=== PATIENT | female | born 1975 | race Caucasian/White ===

== ENCOUNTER 2020-06-23 08:36 | Outpatient (CLI) | payer OTHER, SELFPAY ==
--- NOTE | ~2020-06-23 | US_ITS ---
US abdomen complete EXAMINATION: US Abdomen Complete INDICATION: Abdomen pain PROCEDURE: Realtime High Resolution abdomen ultrasound. COMPARISON: No prior studies for comparison FINDINGS: Gallbladder within normal limits. No gallstones, pericholecystic fluid, gallbladder wall t hickening or biliary dilatation. Common bile duct measures 3 mm. Liver echotexture within normal limits without focal mass. Pancreas within normal limits. Pancreati c tail is obscured by bowel gas. Spleen is unremarkeable. Renal echotexture is within normal limits bilaterally without hydronephrosis, contour deforming mass or renal stone. Right kidney measures 9.3 cm. Left kidney measures 9.6 cm. Visualized aspects of the aorta and IVC are within normal limits. Portal vein is patent. No sonograph ic Lake's sign indicated by the technologist. IMPRESSION: 1: Normal abdominal ultrasound. Reviewed, dictated and finalized at location A. INE I CUTTER
--- NOTE | ~2020-06-23 | US_ITS ---
EXAMINATION:US venous doppler LE RT INDICATION:Leg pain TECHNIQUE: Multiple grayscale, color flow and Doppler images of the right lower extremity deep venous systems were obtained and reviewed. COMPARISON:No prior studies for comparison. FINDINGS: The common femoral, superficial femoral and popliteal veins demonstrate normal respiratory variation, augmentation and compressibility. Color flow is also seen within the posterior tibial, pe roneal, greater saphenous and profunda veins. IMPRESSION: 1: No lower extremity deep venous thrombosis. Reviewed, dictated and finalized at location A. ESSOR OF COMMUNICATION AND WRITING
== END 2020-06-23 08:37 | disposition home or self-care (01) ==
PROVIDERS: PCP Nurse Practitioner Family; Visit Provider Nurse Practitioner Family
DX: R10.9 Unspecified abdominal pain (principal); M79.604 Pain in right leg
CPT/HCPCS: 76700; 93971

== ENCOUNTER 2021-03-18 16:30 | Emergency (ER) | payer OTHER, SELFPAY ==
--- NOTE | ~2021-03-18 | XR_ITS ---
EXAMINATION: XR elbow LT min 3V DATE: 03/18/2021 16:54 INDICATION: Left elbow pain TECHNIQUE: Anteroposterior, two oblique and lateral views of the left elbow were obtained. COMPARISON: None. FINDINGS: Alignment is normal. No fracture or joint effusion. Joint spaces are normal. Soft tissues a re unremarkable. IMPRESSION: 1. No acute osseous abnormality. Reviewed, dictated and finalized at location A.
[2021-03-18 16:36] VITALS: BP 127/76; PULSE 71; RESP 16; TEMP 37.5; O2SAT 98
[2021-03-18 16:52] VITALS: BP 127/76; PULSE 71; RESP 16; TEMP 37.5; O2SAT 98
--- NOTE | 2021-03-18 17:04 | ED.UPPEXIN ---
HPI - Extremity Injury (Upper) General Chief Complaint: Extremity Injury, Upper Stated Complaint: left elbow injury Source: patient Mode of arrival: ambulatory Limitations: no limitations History of Present Illness HPI narrative: Patient is a 45-year-old female who presents complaining of left elbow pain. Patient reports slipping and falling down steps approximately 1 week ago hitting elbow on wood step. She denies other injuries. Patient reports continued tenderness with range of motion. She reports taking [id number] medications with moderate relief. She denies of complaints at this time. Patient has no significant medical history. MD complaint: injury to: left and elbow Related Data Home Medications Medication Instructions Recorded Confirmed folic acid 1 mg tablet 1 mg PO DAILY 06/03/20 03/18/21 pantoprazole 40 mg tablet,delayed 40 mg PO QAM 06/03/20 03/18/21 release sertraline 100 mg tablet 150 mg PO DAILY 06/03/20 03/18/21 Allergies Allergy/AdvReac Type Severity Reaction Status Date / Time lamotrigine [From Lamictal] Allergy Swelling Verified 03/18/21 16:50 of Lip/Tongue/Throat Review of Systems Review of Systems: CONSTITUTIONAL: Denies fever, chills, or sweats. EYES: Denies visual changes, redness, or discharge. ENT: Denies rhinorrhea, congestion, sore throat, or otalgia. CARDIOVASCULAR: Denies chest pain, palpitations, or edema. RESPIRATORY: Denies cough or dyspnea. GASTROINTESTINAL: Denies abdominal pain, nausea, vomiting, or diarrhea. GENITOURINARY: Denies dysuria or hematuria. SKIN: Denies rash or itching. MUSCULOSKELETAL: Reports left elbow pain NEUROLOGIC: Denies headache, numbness, dizziness, or weakness. PSYCHIATRIC: Denies anxiety or depression. [facility] Social History Social History (Updated 06/03/20 @ 08:21 by Lacey Richardson MA) Smoking status: Never smoker Alcohol intake: never Substance use: never Comments At the time of signature, I have reviewed and agree with nursing past medical, surgical, social, and family history unless otherwise noted. Please see nursing chart for further information. There is no relevant family history pertinent to the presenting complaint. Exam Narrative: GENERAL: Well-appearing, well-nourished, and in no acute distress. HEAD: Normocephalic, atraumatic. EYES: EOMI. No redness or drainage. Conjunctiva are normal. ENT: Mucous membranes pink and moist. CHEST: No respiratory distress. HEART: Regular rate and rhythm. EXTREMITIES: Ecchymosis and edema to left elbow, tenderness with palpation. Full range of motion, distal sensation intact and good capillary refill. SKIN: Warm, dry, no rash. NEURO: No focal deficits. Alert and oriented x3. Gait steady. PSYCH: Normal affect. No signs of depression or anxiety. Course Vital Signs Vital signs: Vital Signs Temperature 37.5 C 03/18/21 16:36 Pulse Rate 71 03/18/21 16:36 Respiratory Rate 16 03/18/21 16:36 Blood Pressure 127/76 03/18/21 16:36 Pulse Oximetry 98 03/18/21 16:36 Temperature 37.5 C 03/18/21 16:52 Pulse Rate 71 03/18/21 16:52 Respiratory Rate 16 03/18/21 16:52 Blood Pressure 127/76 03/18/21 16:52 Pulse Oximetry 98 03/18/21 16:52 Reviewed MDM - Extremity Injury (Upper) MDM Narrative Medical decision making narrative: X-ray shows no fracture, dislocation or abnormality of the left elbow. Discussed with patient most likely musculoskeletal pain. Kishor wrap applied. Patient instructed on use of NSAIDs. Patient to follow-up with orthopedics in 1 week if pain persist. Patient agrees with plan of care and is stable for discharge home with outpatient follow-up as discussed. Critical Care Time Critical Care Time Critical Care Time: No Discharge Plan Discharge Clinical Impression: Elbow pain Qualifiers: Laterality: left Qualified Code(s): M25.522 - Pain in left elbow Patient Disposition: Home, Self-Care Condition: Stable Instructions:
== END 2021-03-18 17:18 | disposition home or self-care (01) ==
PROVIDERS: Emergency Provider Nurse Practitioner; PCP Nurse Practitioner Family
DX: M25.522 Pain in left elbow (principal); K21.9 Gastro-esophageal reflux disease without esophagitis; Z86.16 Personal history of COVID-19
CPT/HCPCS: 73080; 99213; G0463

== ENCOUNTER 2021-09-16 09:46 | Observation (INO) | payer OTHER, BC, SELFPAY ==
[2021-09-16] VITALS (23 sets, daily range): BP systolic 107–128; BP diastolic 61–78; PULSE 62–96; TEMP 37; O2SAT 97–100
--- NOTE | 2021-09-16 10:02 | OBADM ---
This patient, Bernie Correa, admitted to the OB room OB Post 115 for observation. Patient/family oriented to hospital policies and general routines including ID bracelet, bed and alarms, visiting hours, pain management, procedures, bathroom and other care routines, personal items, smoking policy, room service/diet, and visiting hours. Patient/Family are encouraged to report perceived risks to care and to ask questions if they do not understand what they are told or what they should do.
[2021-09-16] MEDS: TERBUTALINE SULFATE 1 MG/ML VIAL 0.25 MG SUB-Q (10:39)
--- NOTE | 2021-09-16 10:46 | PM.OBTRLD ---
OB - Triage/Final Diagnosis Visit Information Date of evaluation: 09/16/21 Reason for evaluation: threatened labor Comments/Additional reasons for admission: I have assessed the risk for this patient, Bernie Correa, and determined that she would benefit from observation care. Evaluation Vital signs: Vital Signs - 24 hr 09/16/21 10:00 09/16/21 10:15 09/16/21 10:39 Pulse Rate 88 71 Blood Pressure 128/78 114/63 Pulse Oximetry 99 09/16/21 10:44 Pulse Rate Blood Pressure Pulse Oximetry 98
[2021-09-16] MEDS: LACTATED RINGERS 1,000 ML 999 ML IV CONT (11:06)
[2021-09-16] MEDS: BETAMETHASONE SOD PHOS/ACETATE 30 MG/5 ML VIAL 12 MG IM (11:07)
[2021-09-16 11:28] LABS: Fetal Fibronectin Negative
== END 2021-09-16 12:56 | disposition home or self-care (01) ==
PROVIDERS: Admitting Provider Obstetrics & Gynecology; PCP Nurse Practitioner Family; Visit Provider Obstetrics & Gynecology
DX: O47.02 False labor before 37 completed weeks of gestation, second trimester (principal); Z3A.27 27 weeks gestation of pregnancy
CPT/HCPCS: 82731; 96360; 96372; G0378; G0379; J0702; J3105; J7120

== ENCOUNTER 2021-09-17 11:26 | Outpatient (CLI) | payer OTHER, BC, SELFPAY ==
[2021-09-17] MEDS: BETAMETHASONE SOD PHOS/ACETATE 30 MG/5 ML VIAL 12 MG IM (11:50)
== END 2021-09-17 11:27 | disposition home or self-care (01) ==
PROVIDERS: PCP Nurse Practitioner Family; Visit Provider Obstetrics & Gynecology
DX: Z34.90 Encounter for supervision of normal pregnancy, unspecified, unspecified trimester (principal); Z3A.00 Weeks of gestation of pregnancy not specified
CPT/HCPCS: 96372; J0702

== ENCOUNTER 2021-10-10 09:54 | Observation (INO) | payer OTHER, BC, SELFPAY ==
[2021-10-10] VITALS (63 sets, daily range): BP systolic 111–129; BP diastolic 63–71; PULSE 51–112; TEMP 36.5–37.1; O2SAT 92–100; BMI 33.0
--- NOTE | ~2021-10-10 | US_ITS ---
US OB limited DATE: 10/10/2021 14:03 INDICATION: Cervical length measurement TECHNIQUE: Real-time imaging and Doppler analysis COMPARISON: None FINDINGS: The cervical length is 4.4 cm. No funneling is demonstrated. Live abebe intrauterine gestation, fetus in longitudinal lie, breech presentation with hear t rate of 130 bpm. Posterior placenta. Subjectively normal amount of amniotic fluid. IMPRESSION: Cervical length is 4.4 cm; no funneling Breech presentation Reviewed, dictated and finalized at Location A. Reviewed, dictated and finalized at location A.
--- NOTE | 2021-10-10 10:10 | OBADM ---
This patient, Bernie Correa, admitted to the OB room 116 for observation for contractions. Patient/family oriented to hospital policies and general routines including ID bracelet, bed and alarms, visiting hours, pain management, procedures, bathroom and other care routines, personal items, smoking policy, room service/diet, and visiting hours. Patient/Family are encouraged to report perceived risks to care and to ask questions if they do not understand what they are told or what they should do.
[2021-10-10] MEDS: TERBUTALINE SULFATE 1 MG/ML VIAL 0.25 MG SUB-Q ×2 (10:41→12:59)
[2021-10-10 11:03] LABS: Add Urine Microscopic? NO; Appearance Urine Clear (Clear); Bilirubin Urine Negative (Negative); Blood Urine Negative (Negative); Color Urine Yellow (Yellow); Glucose Urine UA Negative (Negative); Ketones Urine Negative (Negative); Leukocyte Esterase Ur Negative LEU/UL (Negative); Nitrate Urine Negative (Negative); Protein Urine Negative (Negative); Specific Grav Ur 1.011 (1.001-1.035); Urobilinogen Urine Negative mg/dL (<2.0)
[2021-10-10 12:42] LABS: Fetal Fibronectin Negative
--- NOTE | 2021-10-13 07:47 | PM.OBTRLD ---
OB - Triage/Final Diagnosis Visit Information Reason for evaluation: threatened labor Comments/Additional reasons for admission: I have assessed the risk for this patient, Bernie Correa, and determined that she would benefit from observation care. Evaluation Laboratory results: Laboratory Tests 10/10/21 10/10/21 10:52 10:52 Urine Color Yellow Urine Appearance Clear Urine pH 9.0 Ur Specific Avery 1.011 Urine Protein Negative Urine Glucose (UA) Negative Urine Ketones Negative Ur Blood (Man) Negative Urine Nitrate Negative Urine Bilirubin Negative Urine Urobilinogen Negative Leukocyte Esterase Rfl Negative Fibronectin Negative
== END 2021-10-10 14:45 | disposition home or self-care (01) ==
PROVIDERS: Admitting Provider Obstetrics & Gynecology; PCP Nurse Practitioner Family; Visit Provider Obstetrics & Gynecology
DX: O47.9 False labor, unspecified (principal)
CPT/HCPCS: 76815; 81003; 82731; 96372; G0378; G0379; J3105

== ENCOUNTER 2021-11-08 21:59 | Inpatient (IN) | payer BC, SELFPAY ==
--- NOTE | ~2021-11-08 | US_ITS ---
US OB limited 11/09/2021 08:15 Indication: Evaluate position Procedure: High-resolution Limited obstetrical ultrasound using transabdominal technique Comparison: Ultrasound dated 10/10/2021 Findings: There is a single living intrauterine in transverse right presentation. hea rt rate 125 BPM. Placenta is posterior. Amniotic fluid is subjectively normal. Impression: 1: Single living intrauterine in transverse right presentation. Reviewed, dictated and finalized at location A. Impression: 1: Single living intrauterine in transverse right presentation.
--- NOTE | 2021-11-08 22:10 | OBADM ---
This patient, Bernie Correa, admitted to the OB room OB Post 116 for observation. Patient/family oriented to hospital policies and general routines including ID bracelet, bed and alarms, visiting hours, pain management, procedures, bathroom and other care routines, personal items, smoking policy, room service/diet, and visiting hours. Patient/Family are encouraged to report perceived risks to care and to ask questions if they do not understand what they are told or what they should do.
[2021-11-08 22:22] VITALS: BP 121/77; PULSE 77
--- NOTE | 2021-11-08 22:28 | PC.NURSE ---
Dr Breaux notified of contractions, sve and no vtx presentation. Orders received.
[2021-11-08 22:31] VITALS: BP 114/76; PULSE 81
[2021-11-08] MEDS: TERBUTALINE SULFATE 1 MG/ML VIAL 0.25 MG SUB-Q ×2 (22:41→23:37)
[2021-11-08 22:46] VITALS: BP 116/66; PULSE 79
[2021-11-08 23:01] VITALS: BP 126/68; PULSE 92
[2021-11-09] VITALS (48 sets, daily range): BP systolic 110–136; BP diastolic 63–94; PULSE 59–90; RESP 12–18; TEMP 36.2–37.1; O2SAT 99–100; BMI 34.3
[2021-11-09] MEDS: TERBUTALINE SULFATE 1 MG/ML VIAL 0.25 MG SUB-Q (00:46)
[2021-11-09] MEDS: ACETAMINOPHEN 500 MG TABLET 1000 MG PO ×2 (01:04→06:41)
[2021-11-09] MEDS: LACTATED RINGERS 1,000 ML 999 ML IV CONT (01:05)
[2021-11-09] MEDS: LACTATED RINGERS 1,000 ML 125 ML IV CONT (02:35)
[2021-11-09] MEDS: NIFEdipine 10 MG CAPSULE PO (03:55)
[2021-11-09] MEDS: MAGNESIUM SULF 4 GM/WATER100ML 4 GM/100 ML BAG IVPB (05:13)
[2021-11-09] MEDS: MAGNESIUM SULF 20GM/WATER500ML 500 ML 50 MG IV CONT (05:49)
--- NOTE | 2021-11-09 07:25 | PM.IMHP ---
H&P: HPI History of Present Illness Date/Time: 11/09/21 07:25 Chief Complaint: contractions and Review of Systems Review of Systems: negative [facility] Past Medical History Medical History (Updated 11/09/21 @ 07:29 by Reece Beasley MD) Left elbow pain Social History Social History Smoking status: Never smoker Alcohol intake: never Substance use: never Meds Home Medications and Allergies Home Medications Medication Instructions Recorded Confirmed Type folic acid 1 mg tablet 1 mg PO DAILY 06/03/20 10/10/21 History pantoprazole 40 mg tablet,delayed 40 mg PO QAM 06/03/20 10/10/21 History release (Protonix) sertraline 100 mg tablet (Zoloft) 150 mg PO DAILY 06/03/20 10/10/21 History calcium-magnesium 750 mg-465 mg 1 tablet PO DAILY 10/10/21 10/10/21 History tablet nifedipine 10 mg capsule 10 mg PO Q4-6H PRN Contractions 10/10/21 10/10/21 History vit 87-iron carb,asp 18 1 cap PO DAILY 10/10/21 10/10/21 History mg-folic acid 1 mg-dha 350 mg capsule (Prenate Mini (ferrous asparto glycinate)) Allergies Allergy/AdvReac Type Severity Reaction Status Date / Time lamotrigine [From Lamictal] Allergy Swelling Verified 04/18/21 14:11 of Lip/Tongue/Throat Vital Signs Vital Signs - 24 hr 11/08/21 22:22 11/08/21 22:31 11/08/21 22:46 Temperature Pulse Rate 77 81 79 Blood Pressure 121/77 114/76 116/66 Oxygen Delivery 11/08/21 23:01 11/09/21 02:09 11/09/21 05:16 Temperature Pulse Rate 92 87 66 Blood Pressure 126/68 136/63 115/71 Oxygen Delivery 11/09/21 05:31 11/09/21 06:01 11/09/21 06:31 Temperature Pulse Rate 72 72 72 Blood Pressure 110/68 121/71 113/66 Oxygen Delivery 11/09/21 07:01 11/08/21 22:10 11/09/21 05:13 Temperature 98.3 F Pulse Rate 71 Blood Pressure 113/66 Oxygen Delivery Room Air Exam Narrative: GENERAL: Well-appearing, well-nourished, and in no acute distress. HEAD: Normocephalic, atraumatic. EYES: EOMI. No redness or drainage. Conjunctiva are normal. ENT: Mucous membranes pink and moist. CHEST: No respiratory distress. HEART: Regular rate and rhythm. EXTREMITIES: Ecchymosis and edema to left elbow, tenderness with palpation. Full range of motion, distal sensation intact and good capillary refill. SKIN: Warm, dry, no rash. NEURO: No focal deficits. Alert and oriented x3. Gait steady. PSYCH: Normal affect. No signs of depression or anxiety. Assessment and Plan Assessment and plan (1) contractions: Code(s): O47.00 - False labor before 37 completed weeks of gestation, unspecified trimester Status: Acute Plan impression: 34 and 6 7th weeks with labor Plan: The patient is on magnesium. She is the are ready received steroid 2 weeks ago. The baby is presently transverse or at least abnormal lie and will undergo ultrasound this morning. Additional Plan None
--- NOTE | 2021-11-09 08:46 | PC.NURSE ---
0739--US at bedside. Transverse lie noted.
--- NOTE | 2021-11-09 08:47 | PC.NURSE ---
0829--Dr. Humberto Beasley notified of increase in contractions. Orders given to increase Magnesium to 2.5mg/hr. Plan of care discussed.
--- NOTE | 2021-11-09 14:42 | WPDANESEPPF ---
Anes - Initial Pre Proc Eval Procedure: Operation Date: 11/09/21 14:45 Proposed Procedures p Section - Reece Beasley MD Date/Time: 11/09/21 14:42 Surgeon: Reece Beasley MD Pre Op Diagnosis: Contractions Patient Data Age: 46 Gender: F Height: 1.6 m Weight: 88 kg Last Vital Signs Temp 97.2 F L 11/09/21 10:00 Pulse 90 11/09/21 14:02 Resp 14 11/09/21 10:00 BP 127/70 11/09/21 14:02 O2 Del Method Room Air 11/08/21 22:10 Allergies Allergy/AdvReac Type Severity Reaction Status Date / Time lamotrigine [From Lamictal] Allergy Swelling Verified 04/18/21 14:11 of Lip/Tongue/Throat Home Medications Medication Instructions Recorded Confirmed Type folic acid 1 mg tablet 1 mg PO DAILY 06/03/20 11/09/21 History pantoprazole 40 mg tablet,delayed 40 mg PO QAM 06/03/20 11/09/21 History release (Protonix) sertraline 100 mg tablet (Zoloft) 150 mg PO DAILY 06/03/20 11/09/21 History calcium-magnesium 750 mg-465 mg 1 tablet PO DAILY 10/10/21 11/09/21 History tablet nifedipine 10 mg capsule 10 mg PO Q4-6H PRN Contractions 10/10/21 10/10/21 History vit 87-iron carb,asp 18 1 cap PO DAILY 10/10/21 11/09/21 History mg-folic acid 1 mg-dha 350 mg capsule (Prenate Mini (ferrous asparto glycinate)) Patient hx anesthesia problems: none Family hx anesthesia problems: none Results Review: All pre-operative results and documents have been reviewed as part of the pre-operative evaluation. [facility] Past Medical History Medical History (Updated 11/09/21 @ 07:29 by Reece Beasley MD) Left elbow pain Social History Social History Smoking status: Never smoker Alcohol intake: never Substance use: never Anes - Eval Final PreProcedure Day of Procedure 11/09/21 14:42 Patient weight: obese Heart: regular rate and rhythm Lungs: clear to auscultation Airway: Mallampati scale class II Neurological: alert and oriented Last oral intake: 2 hours ASA classification: II Emergent: yes (urgent) Anesthetic plan: proceed Anesthesia type and monitoring: general ETT (RSI vs regional anesthesia) and standard monitoring Results Review: All pre-operative results and documents have been reviewed as part of the pre-operative evaluation. Informed Consent: The patient's anesthetic plan and its attendant risks and benefits were discussed with the patient/family/POA. Questions were solicited and answers provided to the satisfaction of the patient/family/POA.
[2021-11-09 14:44] LABS: Basophils Absolute Auto 0.1 K/mm3 (0.0-0.1); Basophils Percent Auto 0.4 % (0.2-1.2); Eosinophils Absolute Auto 0.1 K/mm3 (0-0.3); Eosinophils Percent Auto 0.6 % (0-4.4); Hematocrit 36.9 % (37.0-47.0); Hemoglobin 12.2 g/dL (12.0-15.0); Immature Granulocyte Absolute 0.12 K/mm3 (0.00-0.031); Immature Granulocyte Percent A 0.9 % (0-0.5); Lymphocytes Absolute Auto 1.12 K/mm3 (0.9-3.2); Lymphocytes Percent Auto 8.6 % (18.3-44.2); Mean Corpuscular HGB Conc 33.1 g/dl (32-36); Mean Corpuscular Hemoglobin 29.2 pg (26-34); Mean Corpuscular Volume 88.3 fl (80-100); Mean Platelet Volume 11.9 fl (7.4-10.4); Monocytes Absolute Auto 0.9 K/mm3 (0.1-0.6); Monocytes Percent Auto 6.8 % (2.6-8.5); Neutrophils Absolute Auto 10.8 K/mm3 (1.3-6.7); Neutrophils Percent Auto 82.7 % (45.5-73.1); Platelet Count Result 205 k/mm3 (150-375); Red Blood Count 4.18 M/mm3 (4.2-5.4); Red Cell Distribution Width 14.8 % (11.5-14.5); White Blood Count 13.1 K/mm3 (4.5-10.0)
--- NOTE | 2021-11-09 15:07 | WPDHPUPDATE1 ---
History and Physical Update Update Date/Time: 11/09/21 15:07 History and Physical has been reviewed, including an updated exam of the patient. There are NO changes in the patient's condition. Risks, benefits, and alternatives have been discussed and questions answered. Patient agrees to proceed with procedure. The patient is cervix is changed. Baby remains transverse proceed with low transverse section
[2021-11-09] MEDS: KETOROLAC 30 MG/ML VIAL (*BKC) IV PUSH (16:00)
--- NOTE | 2021-11-09 16:01 | P.OP_ITS ---
Procedure Note - Detailed Date of Procedure 11/09/21 Pre-op Diagnosis Contractions / pre term rupture membranes at 35 weeks gestation/abnormal lie Post-op Diagnosis Same Procedure Performed primary low-transverse section Surgeon Reece Beasley MD Anesthesia Spinal Indications this 3 para 2 at 34 and 6 7th weeks gestation with spontaneous rupture membranes and transverse lie Findings viable female infant with transverse lie Description of Procedure the patient was admitted with labor and was eventually placed on magnesium. She broke through the magnesium and spontaneously laps she was offered low-transverse section. After obtaining informed consent the patient was prepped draped normal sterile fashion placed in the supine position. Under excellent spinal anesthetic the abdomen was entered in a Pfannenstiel fashion progressive layers of fascia the shins as midline cure number fresh bilaterally. Underlying muscles were sharply dissected. Parietal peritoneum elevated by clamps and sharp object dissection. This was carried superiorly and inferiorly to bladder. Bladder blade placed and a bladder flap formed bladder blade returned a low transverse incision made in the breech delivered the double footling followed by sweeping the arms medially and the head delivered in the flexed position cord clamped x2 and cut infant passed off the table. Pl acenta delivered intact manually. Uterus delivered on the abdomen wrapped in moist towel. After assuring no membranes or debris remained in the uterus, the uterus was closed with continuous running 0 Vicryl from lateral edge to lateral edge. This was followed by 2nd imbricating running locking Vicryl from lateral lateral edge. Hemostasis was assured. Blood loss was ovaries and tubes appeared within normal limits and the uterine incision inspected 1 last time hemostatic this was returned the abdomen in laps removed and accounted for. The fascia then closed with continuous running 0 Vicryl from lateral edge to midline bilaterally. Irrigation of subcutaneous layer the skin closed with 4-0 Monocryl and. Blood loss by quantitative amount was 645. All sponge, needle, instrument counts were correct. There were no immediate complications Estimated Blood Loss 645 Urine Output 500 Pathology None sent Condition Stable
--- NOTE | 2021-11-09 16:56 | LDADM ---
This patient, Bernie Correa, was admitted to OB Post 116 on 11/09/21 at 14:27. Plans for labor, pain management and were discussed with patient. Patient/family oriented to hospital policies and general routines including ID bracelet, bed and alarms, visiting hours, pain management, procedures, bathroom and other care routines, personal items, smoking policy, room service/diet and guest tray routines, security routines, and visiting hours. Patient/Family are encouraged to report perceived risks to care and to ask questions if they do not understand what they are told or what they should do. See OBIX for further documentation.
[2021-11-09] MEDS: LORATADINE 10 MG TABLET (17:30)
[2021-11-09] MEDS: fentaNYL CITRATE INJ (*CRX) 100 MCG/2 ML VIAL 25 MCG IV PUSH (17:31)
[2021-11-10] VITALS: BP 124/72; PULSE 86; RESP 18; TEMP 36.9; O2SAT 99
[2021-11-10 04:36] VITALS: BP 110/65; PULSE 90; RESP 18; TEMP 36.8; O2SAT 97
[2021-11-10 05:23] LABS: Hematocrit 30.5 % (37.0-47.0); Hemoglobin 10.2 g/dL (12.0-15.0)
--- NOTE | 2021-11-10 07:40 | P.PNOB_ITS ---
OB - PN: Subj Subjective Date/time seen: 11/10/21 07:40 Patient comments: no complaints and pain well controlled baby status: other ( baby transferred out) OB - PN: Obj Data Labs CBC & Chem 7: 11/10/21 04:18 Labs: Laboratory Results - last 24 hr 11/09/21 11/09/21 11/10/21 14:35 14:35 04:18 WBC 13.1 H RBC 4.18 L Hgb 12.2 10.2 L Hct 36.9 L 30.5 L MCV 88.3 MCH 29.2 MCHC 33.1 RDW 14.8 H Plt Count 205 MPV 11.9 H Immature Gran % (Auto) 0.9 H Neut % (Auto) 82.7 H Lymph % (Auto) 8.6 L Tillman % (Auto) 6.8 Eos % (Auto) 0.6 Baso % (Auto) 0.4 Lymph # (Auto) 1.12 Tillman # (Auto) 0.9 H Eos # (Auto) 0.1 Baso # (Auto) 0.1 Abs Immat Gran (auto) 0.12 H Absolute Neuts (auto) 10.8 H Absolute Nucleated RBC 0.0 Nucleated RBC % 0.0 Blood Type O Positive Antibody Screen Negative Imaging Radiologist's impression: Impressions Obstetrics Ultrasound 11/09/21 08:40 Impression: 1: Single living intrauterine in transverse right presentation. OB - PN A/P Plan day: 1 Plan: routine care Time Spent With Patient Time: Total time spent is greater than 50% in coordination of care (as documented) at patient's floor/unit and/or counseling patient: Time with patient: less than 15 minutes Exam GI: Auscultation: normal bowel sounds and other ( wound clean dry and intact)
[2021-11-10 08:00] VITALS: BP 117/54; PULSE 77; RESP 18; TEMP 37.2
[2021-11-10] MEDS: POLYSACCHARIDE IRON COMPLEX 150 MG CAPSULE PO (08:30)
[2021-11-10] MEDS: DOCUSATE SODIUM 100 MG CAPSULE PO (08:30)
[2021-11-10] MEDS: SIMETHICONE 80 MG TAB.CHEW PO ×2 (08:30→14:48)
[2021-11-10] MEDS: MULTIVIT/MIN/PREN/FOL AC/IRON TABLET 1 TAB PO (08:30)
[2021-11-10] MEDS: IBUPROFEN 600 MG TABLET PO ×3 (08:31→20:33)
--- NOTE | 2021-11-10 09:24 | WPDANLDPN2 ---
Anes-Prog Note L&D Date/Time: 11/10/21 09:24 Comfortable throughout: section Neuraxial method: spinal Epidural/Spinal procedure site: clean & non-tender Neuro status: Neuro function grossly intact. Cardiovascular status: normal Respiratory status: normal Airway patency: baseline Mental status: baseline Post-Op hydration status: normal Vital Signs: Last Vital Signs Temp 36.8 C 11/10/21 04:36 Pulse 90 11/10/21 04:36 Resp 18 11/10/21 04:36 BP 110/65 11/10/21 04:36 Pulse Ox 97 11/10/21 04:36 O2 Del Method Room Air 11/10/21 04:36 Pain score (VAS): 06/27 I/O: Intake & Output 11/09/21 11/10/21 11/10/21 23:59 07:59 15:59 Intake Total 2200 Output Total 580 3000 Balance -580 -800 Post-procedural complaints: none Patient feedback: Patient satisfied with anesthetic care.
--- NOTE | 2021-11-10 09:25 | WPDANLDNPN2 ---
Anes-Prog Note L&D-Neuraxial Date/Time: 11/10/21 09:25 Neuraxial medications: intrathecal PF morphine Opiod-related complaints: none Patient feedback: Patient satisfied with post-operative pain management.
[2021-11-10 11:03] LABS: Rapid Plasma Reagin Non-Reactive (NonReactive)
[2021-11-10 13:00] VITALS: BP 112/64; RESP 76; TEMP 36.5; O2SAT 100
[2021-11-10] MEDS: ACETAMINOPHEN 325 MG TABLET 650 MG PO (14:48)
[2021-11-10] MEDS: HYDROcodone/acetaminophen (*CRX) 5-325 MG TABLET 1 TAB PO ×2 (14:49→20:33)
--- NOTE | 2021-11-10 14:51 | PC.NURSE ---
Pt. to [facility] on pass to see infant.
[2021-11-10 19:25] VITALS: BP 116/75; PULSE 82; RESP 18; TEMP 36.6
--- NOTE | 2021-11-10 19:25 | PC.NURSE ---
Returned from being on a pass to [facility] to see baby.
[2021-11-11] MEDS: IBUPROFEN 600 MG TABLET PO ×3 (05:31→19:31)
[2021-11-11] MEDS: HYDROcodone/acetaminophen (*CRX) 5-325 MG TABLET 1 TAB PO ×2 (05:32→13:21)
[2021-11-11] MEDS: TETANUS,DIPHTHERIA,AC PERTUSSIS ADULT (0.5 ML) BOOSTRIX IM (05:33)
[2021-11-11 07:55] VITALS: BP 114/67; PULSE 78; RESP 16; TEMP 36.6; O2SAT 100
[2021-11-11] MEDS: HYDROcodone/acetaminophen (*CRX) 10-325 MG TABLET 1 TAB PO ×3 (08:42→23:29)
[2021-11-11] MEDS: DOCUSATE SODIUM 100 MG CAPSULE PO (08:42)
[2021-11-11] MEDS: MULTIVIT/MIN/PREN/FOL AC/IRON TABLET 1 TAB PO (08:42)
[2021-11-11] MEDS: SIMETHICONE 80 MG TAB.CHEW PO (08:43)
--- NOTE | 2021-11-11 08:48 | PM.OBPNVD ---
OB - PN: Subj Subjective Date/time seen: 11/11/21 08:48 OB - PN: Obj Data Labs CBC & Chem 7: 11/10/21 04:18 Labs: Laboratory Results - last 24 hr 11/09/21 14:35 RPR Non-reactive OB - PN A/P Assessment and Plan (1) abnormal glucose tolerance of mother: Code(s): O99.815 - Abnormal glucose complicating the puerperium Status: Acute Plan Normal check Plan Comments: routine care Time Spent With Patient Time: Total time spent is greater than 50% in coordination of care (as documented) at patient's floor/unit and/or counseling patient: Time with patient: less than 15 minutes
--- NOTE | 2021-11-11 14:29 | PC.NURSE ---
Pt. out on pass to visit baby at [facility] accompanied by mother in law.
[2021-11-11 19:25] VITALS: BP 125/70; PULSE 81; RESP 18; TEMP 36.6
--- NOTE | 2021-11-11 19:25 | PC.NURSE ---
Returned from being on a pass to [facility] to see baby.
[2021-11-12] MEDS: HYDROcodone/acetaminophen (*CRX) 10-325 MG TABLET 1 TAB PO (03:58)
[2021-11-12] MEDS: IBUPROFEN 600 MG TABLET PO ×2 (03:58→11:39)
[2021-11-12 07:40] VITALS: BP 133/75; PULSE 80; RESP 18; TEMP 36.3; O2SAT 99
--- NOTE | 2021-11-12 08:00 | PM.OBDSVD ---
DS: Admitting Diagnosis Discharge Date 11/12/21 Admitting Diagnosis intrauterine PPROM transverse lie OB - DS: Summary OB Procedures : None OB Procedures Intrapartum: OB Procedures: : None Peripartum Data Infant Delivery Method: Section Procedures: Procedures Operation Date: 11/09/21 14:45 Actual Procedure Side Surgeon p Section Bilateral Reece Beasley MD complications: none Status at Discharge Functional status at discharge: independent ambulation Overall status at discharge: patient is progressing back to baseline Time Spent with Patient Time attestation: Total time spent providing and/or coordinating discharge services: Time spent: Less than 30 minutes Exam Const: General: comfortable and no acute distress Resp: Effort & Inspection: normal respiratory effort Auscultation: clear to auscultation bilaterally Cardio: Rate: regular rate GI: Inspection: non-distended GI Palp: Yes Soft to palpation, No Firmness to palpation present (GI), Yes Tenderness to palpation present (GI) (mild tenderness over incision ) and No Guarding due to palpation present (GI) Auscultation: normal bowel sounds Psych: Appearance: grossly normal Mental Status: mental status grossly normal Discharge Plan Discharge Attending physician on discharge: Reece Wright Discharging Clinician: Reece Wright Patient Disposition: Home, Self-Care Activity: may shower, no straining and pelvic rest Diet: heart healthy Wound Care Instructions: follow printed instructions Patient Instructions: Antibiotic Form Stand Alone Forms: General Discharge Information Follow-up/Referrals: Reece Wright MD [Physician] - Discharge Medications: New hydrocodone-acetaminophen 5-325 mg tablet 1 tablet PO Q4H PRN (Reason: pain) Qty: 30 0RF No Action pantoprazole [Protonix] 40 mg tablet,delayed release (DR/EC) 40 mg PO QAM folic acid 1 mg tablet 1 mg PO DAILY sertraline [Zoloft] 100 mg tablet 150 mg PO DAILY Prenate Mini (ferr asp glycin) 18-1-350 mg capsule 1 cap PO DAILY calcium-magnesium 750-465 mg Tablet 1 tablet PO DAILY nifedipine 10 mg Capsule 10 mg PO Q4-6H PRN (Reason: Contractions) Date of admission: 11/09/21 14:27 Primary Care Provider: Mechelle,Lynnette Estrada Admitting Provider: Reece Wright Attending physician on admission: Reece Wright Condition: Stable
[2021-11-12] MEDS: HYDROcodone/acetaminophen (*CRX) 5-325 MG TABLET 1 TAB PO (08:14)
[2021-11-12] MEDS: DOCUSATE SODIUM 100 MG CAPSULE PO (08:14)
[2021-11-12] MEDS: MULTIVIT/MIN/PREN/FOL AC/IRON TABLET 1 TAB PO (08:14)
--- NOTE | 2021-11-12 10:56 | PC.NURSE ---
Patient viewed the discharge video Mother & Baby Care, The First Two Weeks . Patient was given the opportunity and encouraged to ask questions. Patient verbalized understanding of information shared and has been given the mother/baby guide for home reference.
== END 2021-11-12 11:45 | disposition home or self-care (01) | DRG 786 ==
LOC: ANHOBPP 22:04 → ANHOB2 11-12 08:02 → ANHOBPP 11-15 11:48
PROVIDERS: Admitting Provider Obstetrics & Gynecology; PCP Nurse Practitioner Family; Visit Provider Student in an Organized Health Care Education/Training Program
PROC: 10D00Z1 Extraction of Products of Conception, Low, Open Approach (ICD-10-PCS; CPT 59514; principal; 2021-11-09 14:45)
DX: O32.2XX0 Maternal care for transverse and oblique lie, not applicable or unspecified (principal); O60.23X0 Term delivery with preterm labor, third trimester, not applicable or unspecified; Z3A.37 37 weeks gestation of pregnancy; Z37.0 Single live birth
CPT/HCPCS: 36415; 76815; 84112; 85014; 85018; 85025; 86592; 86850; 86900; 86901; 90715; A9270; J0131; J1885; J2274; J2405; J2590; J3010; J3105; J3475; J7120

== ENCOUNTER 2024-10-06 16:18 | Emergency (ER) | payer BC, SELFPAY ==
--- NOTE | ~2024-10-06 | CT_ITS ---
EXAMINATION: CT abdomen pelvis w con DATE: 10/06/2024 18:50 INDICATION: abdominal pain TECHNIQUE: Computed tomography (CT) of the abdomen and pelvis was performed with 100 mL Omnipaque-350 intravenous contrast. Automated exposure control and iterative reconstruction technique were employe d. The dose-length product was 852.65 mGy-cm. COMPARISON: None. FINDINGS: Lower thorax: Unremarkable Liver: Normal. Biliary/Gallbladder: Gallbladder is normal. No bile duct dilation. Pancreas: No mass or duct dilation. Spleen: Normal. Adrenals:No mass. Kidneys: No suspicious mass, obstructing stone, or hydronephrosis. GI tract: Mild distal esophageal and gastric wall edema. No small or large bowel dilation. Surgically absent appendix Mesentery/Peritoneum: No ascites, mass, or free air. Retroperitoneum: No mass. Pelvis: Pelvic organs are within normal limits. Simple appearing 2.8 cm left ovarian cyst. Trace free pelvic fluid, within physiologic range. Soft Tissues: Small atrophic fat-containing of local hernia. Bones: No acute osseous finding. IMPRESSION: Mild esophagitis/gastritis. Reviewed, dictated and finalized at location K. IMPRESSION: Mild esophagitis/gastritis.
[2024-10-06 16:32] VITALS: BP 138/90; PULSE 90; RESP 18; TEMP 36.9; O2SAT 100
--- NOTE | 2024-10-06 16:43 | ECG_ITS ---
Test Date: 2024-10-06 17:46:38 Measurements Intervals [place] Rate: 70 P: 63 [place]: 143 QRS: 22 QRSD: 84 T: 56 QT: 371 QTc: 402 Interpretive Statements SINUS RHYTHM POSSIBLE LEFT ATRIAL ENLARGEMENT BORDERLINE ECG No previous ECG available for comparison Electronically Signed On 10-06-2024 19:28:15 CDT by Bhupinder Alvarez D.O.
--- NOTE | 2024-10-06 16:44 | ED.ABDPAIN ---
HPI - Abdominal Pain General Chief Complaint: Abdominal Pain <Rosita Crespo APRN - Last Filed: 10/06/24 19:36> Stated Complaint: Abd pain, cramping <Rosita Crespo APRN - Last Filed: 10/06/24 19:36> Time Seen by Provider: 10/06/24 16:40 <Rosita Crespo APRN - Last Filed: 10/06/24 19:36> Focused HPI: Patient is 49-year-old female presents to the ER with complaints of abdominal pain in her left upper quadrant that she describes as similar to a contraction. She reports she recently started a new infusion to treat her RA and developed intermittent nausea. Patient endorses significant intermittent left upper quadrant pain since she started taking her infusion also. She also endorses dizziness. Patient reports she tried to call her insurance consultant to see if this could be a side effect of her medication but she was unable to get through. She denies any recent sick contacts, recent fever, or urinary symptoms. GENERAL: Well-appearing, well-nourished, and in no acute distress. HEAD: Normocephalic, atraumatic. CHEST: Clear to auscultation. ?No respiratory distress. HEART: Regular rate and rhythm.? NEURO: ?Alert and oriented x3. Patient screened in triage and initial orders placed.? ?Additional care and disposition to be based upon?diagnostic testing and treatment. <Rosita Crespo APRN - Last Filed: 10/06/24 19:36> History of Present Illness HPI narrative: Agree with the HPI above. Patient also states she has a migraine headache at this time which is worsening her GI symptoms including left upper quadrant pain and nausea. No vomiting. Has tried Protonix and Maalox at home without any relief of symptoms. No recent GI follow-up. <Td Lynn MD - Last Filed: 10/06/24 21:24> Related Data Home Medications: Home Medications ?Medication ?Instructions ?Recorded ?Confirmed ?Last Taken ?Type folic acid 1 mg tablet 1 mg PO DAILY 06/03/20 10/06/24 11/09/21 09:00 History calcium-magnesium 750 mg-465 mg 1 tablet PO DAILY 10/10/21 10/06/24 11/09/21 09:00 History tablet cholecalciferol (vitamin D3) 125 125 mcg PO DAILY 01/31/23 10/06/24 Unknown History mcg (5,000 unit) capsule mecobalamin (vitamin B12) 5,000 5,000 mcg PO DAILY 01/31/23 10/06/24 Unknown History mcg chewable tablet omega-3 fatty acids 1,000 mg 1,000 mg PO DAILY 01/31/23 10/06/24 Unknown History capsule ferrous sulfate 325 mg (65 mg 325 mg PO DAILY 07/05/23 10/06/24 Unknown History iron) tablet (Feosol) azathioprine 50 mg tablet 100 mg PO DAILY 09/25/24 10/06/24 Unknown History duloxetine 30 mg capsule,delayed 30 mg PO DAILY 09/25/24 10/06/24 Unknown History release (Cymbalta) duloxetine 60 mg capsule,delayed mg PO ONCE 09/25/24 10/06/24 Unknown History release golimumab 12.5 mg/mL intravenous IV ONCE 09/25/24 10/06/24 Unknown History solution (Simponi ARIA) hydroxyzine HCl 10 mg tablet 10 mg PO QHS PRN 09/25/24 10/06/24 Unknown History meloxicam 15 mg tablet mg PO 09/25/24 10/06/24 Unknown History methylphenidate HCl 36 mg mg PO ONCE 09/25/24 10/06/24 Unknown History tablet,extended release 24 hr prednisone 5 mg tablet mg PO DAILY PRN 09/25/24 10/06/24 Unknown History tramadol 50 mg tablet mg PO TID PRN 09/25/24 10/06/24 Unknown History <Rosita Crespo APRN - Last Filed: 10/06/24 19:36> Allergies/Adverse Reactions: Allergies Allergy/AdvReac Type Severity Reaction Status Date / Time lamotrigine (From Lamictal) Allergy Swelling Verified 10/06/24 15:30 of Lip/Tongue/Throat methotrexate AdvReac Mild Blister Verified 10/06/24 15:30 <Rosita Crespo APRN - Last Filed: 10/06/24 19:36> Review of Systems Review of Systems: As reviewed above in HPI <Td Lynn MD - Last Filed: 10/06/24 21:24> PMFSH Past Medical History Medical History: Medical History delivery delivered Femur fracture, right ACL (anterior cruciate ligament) rupture Thumb fracture Left elbow pain <Rosita Crespo, MATERIAL STOCKKEEPER YARD - Last Filed: 10/06/24 19:36> Surgical History Surgical History: Surgical History History of appendectomy [place] teeth extracted <Rosita Crespo, MATERIAL STOCKKEEPER YARD - Last Filed: 10/06/24 19:36> Family History Family History: Family History Grandparent Heart disease Diabetes mellitus Cancer Gehrig disease Acute Crohn's disease Other Unknown family medical history <Rosita Crespo, MATERIAL STOCKKEEPER YARD - Last Filed: 10/06/24 19:36> Social History Social History: Social History Smoking status: Never smoker Alcohol intake: current Alcohol use details: occasionally Substance use: never Lack of Transportation: No Lack of Food: Never True Current Housing: I Have Housing Concerned About Future Housing: No Difficulty Paying Gas/Electric Bills: No Difficulty Paying for Meds: No Currently Unemployed: No Spiritual care concerns: No <Rosita Crespo, MATERIAL STOCKKEEPER YARD - Last Filed: 10/06/24 19:36> Exam Narrative: GENERAL: [Well-appearing, well-nourished, and in no acute distress.] HEAD: [Normocephalic, atraumatic.] EYES: [PERRLA and EOMI.] ENT: Nares clear, no rhinorrhea or epistaxis. Mucous membranes moist. NECK: Supple. CHEST: [Clear to auscultation. No respiratory distress.] HEART: [Regular rate and rhythm]. No murmur heard. [Normal peripheral pulses.] ABDOMEN: [Soft, nondistended], [nontender], [No rigidity or guarding] EXTREMITIES: Normal range of motion. [No edema.] SKIN: Warm, dry, no rash. NEURO: [No focal deficits]. Alert and oriented [x3.] PSYCH: [Normal mood and affect.] <Td Lynn MD - Last Filed: 10/06/24 21:24> Course Vital Signs Vital signs: Vital Signs Temperature 36.9 C 10/06/24 16:32 Pulse Rate 90 10/06/24 16:32 Respiratory Rate 18 10/06/24 16:32 Blood Pressure 138/90 10/06/24 16:32 Pulse Oximetry 100 10/06/24 16:32 Oxygen Delivery Room Air 10/06/24 16:32 Temperature 36.9 C 10/06/24 16:32 Pulse Rate 90 10/06/24 16:32 Respiratory Rate 18 10/06/24 16:32 Blood Pressure 138/90 10/06/24 16:32 Pulse Oximetry 100 10/06/24 16:32 Oxygen Delivery Room Air 10/06/24 16:32 <Rosita Crespo APRN - Last Filed: 10/06/24 19:36> Vital Signs Temperature 36.9 C 10/06/24 16:32 Pulse Rate 90 10/06/24 16:32 Respiratory Rate 18 10/06/24 16:32 Blood Pressure 138/90 10/06/24 16:32 Pulse Oximetry 100 10/06/24 16:32 Oxygen Delivery Room Air 10/06/24 16:32 Temperature 36.9 C 10/06/24 16:32 Pulse Rate 90 10/06/24 16:32 Respiratory Rate 18 10/06/24 16:32 Blood Pressure 138/90 10/06/24 16:32 Pulse Oximetry 100 10/06/24 16:32 Oxygen Delivery Room Air 10/06/24 16:32 <Td Lnyn MD - Last Filed: 10/06/24 21:24> MDM - Abdominal Pain MDM Narrative Medical decision making narrative: 49-year-old female with a past medical history including gastroesophageal reflux disease, hiatal hernia, rheumatoid arthritis currently undergoing infusions for last 4 months. Follows up with her insurance consultant. Previously had a hiatal hernia diagnosed on endoscopy with some beginnings of ulcerative disease that she takes chronic Protonix for for last 15 years. Patient presents today with complaints of left upper quadrant fullness sensations and contraction type pain in addition to nausea and migraine headache. Patient states that the lights are bothering her. She has otherwise normal vital signs and unremarkable physical examination. Abdomen is soft nontender nondistended. Considerations presently for migraine headache, gastritis, hiatal hernia, gastroenteritis, less likely intra-abdominal pathology such as pancreatitis, obstruction or diverticulitis. Low suspicion intracranial pathology other than migraine. Laboratory studies were obtained as well as CT scan of the abdomen pelvis with contrast. test was ordered. Patient was given a combination of medications to treat both her migraine and nausea with Compazine, diphenhydramine, dexamethasone, normal saline bolus. She was re-evaluated frequently. Workup shows no leukocytosis or anemia. Normal platelet count. Electrolytes are unremarkable. Normal renal and hepatic function panel. Negative troponin. Negative test. Negative lipase. Urinalysis with no signs of infection. CT scan shows mild esophagitis and gastritis which could explain her left upper quadrant symptoms. No other acute process. EKG obtained shows sinus rhythm, no signs of ischemia. Patient had improvement upon re-evaluation. Patient is safe for discharge home at this time will be given GI follow-up and encouraged to contact her PCP or return if any new or worsening symptoms. <Td Lynn MD - Last Filed: 10/06/24 21:24> Medical Records Attestation: I reviewed the patient's medical records. <Td Lynn MD - Last Filed: 10/06/24 21:24> Lab Data Attestation: I reviewed the patient's lab results. <Td Lynn MD - Last Filed: 10/06/24 21:24> Result diagrams: 10/06/24 17:42 10/06/24 17:42 <Rosita Crespo APRN - Last Filed: 10/06/24 19:36> Labs: Lab Results 10/06/24 Range/Units 17:42 WBC 8.4 (4.5-10.0) K/mm3 RBC 4.63 (4.2-5.4) M/mm3 Hgb 13.7 D (12.0-15.0) g/dL Hct 41.6 (37.0-47.0) % MCV 89.8 (80-100) fl MCH 29.6 (26-34) pg MCHC 32.9 (32-36) g/dl RDW 13.9 (11.5-14.5) % Plt Count 322 D (150-375) k/mm3 MPV 10.1 (7.4-10.4) fl Immature Gran % (Auto) 0.4 (0-0.5) % Neut % (Auto) 76.3 H (45.5-73.1) % Lymph % (Auto) 17.7 L (18.3-44.2) % [place] % (Auto) 5.0 (2.6-8.5) % Eos % (Auto) 0.2 (0-4.4) % Baso % (Auto) 0.4 (0.2-1.2) % Lymph # (Auto) 1.49 (0.9-3.2) K/mm3 [place] # (Auto) 0.4 (0.1-0.6) K/mm3 Eos # (Auto) 0.0 (0-0.3) K/mm3 Baso # (Auto) 0.0 (0.0-0.1) K/mm3 Abs Immat Gran (auto) 0.03 (0.00-0.031) K/mm3 Absolute Neuts (auto) 6.4 (1.3-6.7) K/mm3 Absolute Nucleated RBC 0.000 (0.0-0.012) K/mm3 Nucleated RBC % 0.0 (0.0-0.2) % Sodium 138 (137-145) mmol/L Potassium 4.3 (3.4-5.0) mmol/L Chloride 101 (98-107) mmol/L Carbon Dioxide 27 (22-30) mmol/L Anion Gap 10 (4-12) mmol/L BUN 11 (7-17) mg/dL Creatinine 0.71 (0.7-1.0) mg/dL Estim Creat Clear Calc 83 ml/min Estimated GFR > 60 (59 - ) Glucose 98 (65-110) mg/dL Calcium 9.6 (8.4-10.2) mg/dL Total Bilirubin 0.6 (0.2-1.3) mg/dL AST 22 (14-36) U/L ALT 25 (6-35) U/L Alkaline Phosphatase 70 (38-126) U/L Troponin I < 0.012 (0.000-0.034) ng/mL Total Protein 7.0 (6.3-8.2) g/dL Albumin 4.6 (3.5-5.1) g/dL Lipase 39 (23-300) U/L Beta HCG, Quant < 2.39 mIU/ML Urine Color Yellow (Yellow) Urine Appearance Clear (Clear) Urine pH 8.0 (5.0-9.0) Ur Specific [place] 1.007 (1.001-1.035) Urine Protein Negative (Negative) mg/dL Urine Glucose (UA) Negative (Negative) mg/dL Urine Ketones Negative (Negative) mg/dL Ur Blood (Man) Negative (Negative) Urine Nitrate Negative (Negative) Urine Bilirubin Negative (Negative) Urine Urobilinogen 0.2 (<2.0) mg/dL Leukocyte Esterase Rfl Negative (Negative) INA/UL <Rosita Crespo, MATERIAL STOCKKEEPER YARD - Last Filed: 10/06/24 19:36> Lab Results 10/06/24 Range/Units 17:42 WBC 8.4 (4.5-10.0) K/mm3 RBC 4.63 (4.2-5.4) M/mm3 Hgb 13.7 D (12.0-15.0) g/dL Hct 41.6 (37.0-47.0) % MCV 89.8 (80-100) fl MCH 29.6 (26-34) pg MCHC 32.9 (32-36) g/dl RDW 13.9 (11.5-14.5) % Plt Count 322 D (150-375) k/mm3 MPV 10.1 (7.4-10.4) fl Immature Gran % (Auto) 0.4 (0-0.5) % Neut % (Auto) 76.3 H (45.5-73.1) % Lymph % (Auto) 17.7 L (18.3-44.2) % [place] % (Auto) 5.0 (2.6-8.5) % Eos % (Auto) 0.2 (0-4.4) % Baso % (Auto) 0.4 (0.2-1.2) % Lymph # (Auto) 1.49 (0.9-3.2) K/mm3 [place] # (Auto) 0.4 (0.1-0.6) K/mm3 Eos # (Auto) 0.0 (0-0.3) K/mm3 Baso # (Auto) 0.0 (0.0-0.1) K/mm3 Abs Immat Gran (auto) 0.03 (0.00-0.031) K/mm3 Absolute Neuts (auto) 6.4 (1.3-6.7) K/mm3 Absolute Nucleated RBC 0.000 (0.0-0.012) K/mm3 Nucleated RBC % 0.0 (0.0-0.2) % Sodium 138 (137-145) mmol/L Potassium 4.3 (3.4-5.0) mmol/L Chloride 101 (98-107) mmol/L Carbon Dioxide 27 (22-30) mmol/L Anion Gap 10 (4-12) mmol/L BUN 11 (7-17) mg/dL Creatinine 0.71 (0.7-1.0) mg/dL Estim Creat Clear Calc 83 ml/min Estimated GFR > 60 (59 - ) Glucose 98 (65-110) mg/dL Calcium 9.6 (8.4-10.2) mg/dL Total Bilirubin 0.6 (0.2-1.3) mg/dL AST 22 (14-36) U/L ALT 25 (6-35) U/L Alkaline Phosphatase 70 (38-126) U/L Troponin I < 0.012 (0.000-0.034) ng/mL Total Protein 7.0 (6.3-8.2) g/dL Albumin 4.6 (3.5-5.1) g/dL Lipase 39 (23-300) U/L Beta HCG, Quant < 2.39 mIU/ML Urine Color Yellow (Yellow) Urine Appearance Clear (Clear) Urine pH 8.0 (5.0-9.0) Ur Specific [place] 1.007 (1.001-1.035) Urine Protein Negative (Negative) mg/dL Urine Glucose (UA) Negative (Negative) mg/dL Urine Ketones Negative (Negative) mg/dL Ur Blood (Man) Negative (Negative) Urine Nitrate Negative (Negative) Urine Bilirubin Negative (Negative) Urine Urobilinogen 0.2 (<2.0) mg/dL Leukocyte Esterase Rfl Negative (Negative) INA/UL <Td Lynn MD - Last Filed: 10/06/24 21:24> Imaging Data Attestation: I personally reviewed and interpreted this imaging study as follows: <Td Lynn MD - Last Filed: 10/06/24 21:24> My impression: Impressions Abdomen/Pelvis CT 10/06/24 19:00 IMPRESSION: Mild esophagitis/gastritis. <Td Lynn MD - Last Filed: 10/06/24 21:24> Radiologist's impression: ITS Impressions Abdomen/Pelvis CT 10/06/24 19:00 IMPRESSION: Mild esophagitis/gastritis. <Rosita Crespo APRN - Last Filed: 10/06/24 19:36> ITS Impressions Abdomen/Pelvis CT 10/06/24 19:00 IMPRESSION: Mild esophagitis/gastritis. <Td Lynn MD - Last Filed: 10/06/24 21:24> Discharge Plan Discharge Clinical Impression: Migraine, Abdominal pain, Gastritis <Rosita Crespo APRN - Last Filed: 10/06/24 19:36> Patient Disposition: Home <Rosita Crespo APRN - Last Filed: 10/06/24 19:36> Condition: Stable <Rosita Crespo APRN - Last Filed: 10/06/24 19:36> Instructions: Antibiotic Form, Abdominal Pain (ED) <Rosita Crespo APRN - Last Filed: 10/06/24 19:36> Additional Instructions: Your CT scan shows some gastritis but no other acute intra-abdominal process. Your laboratory studies are all within normal limits which is reassuring. Your symptoms could be a combination of things either related to your hiatal hernia, peptic ulcerations, related to your migraines or even your rheumatoid arthritis. We will send you home with some medications to try for symptom control if this were to recur. We have provided you a GI doctor to contact for close outpatient follow-up appointment. Return with any new or worsening concerns at any time. Follow up with regular doctors. <Rosita Crespo APRN - Last Filed: 10/06/24 19:36> Patient Language: Indonesian <Rosita Crespo APRN - Last Filed: 10/06/24 19:36> Prescriptions: New prochlorperazine maleate [Compazine] 10 mg tablet 10 mg PO Q8H PRN (Reason: nausea and vomiting) Qty: 14 0RF dicyclomine 20 mg tablet 20 mg PO TID PRN (Reason: abdominal pain) Qty: 14 0RF No Action folic acid 1 mg tablet 1 mg PO DAILY cholecalciferol (vitamin D3) 125 mcg (5,000 unit) capsule 125 mcg PO DAILY mecobalamin (vitamin B12) 5,000 mcg tablet,chewable 5,000 mcg PO DAILY omega-3 fatty acids 1,000 mg capsule 1,000 mg PO DAILY ferrous sulfate [Feosol] 325 mg (65 mg iron) tablet 325 mg PO DAILY diclofenac sodium [Voltaren Arthritis Pain] 1 % gel 4 g topical QID Qty: 100 2RF Rx Instructions: apply to single knee, ankle, foot; for foot includes sole/toes/top of foot duloxetine [Cymbalta] 30 mg capsule,delayed release(DR/EC) 30 mg PO DAILY duloxetine 60 mg capsule,delayed release(DR/EC) PO ONCE tramadol 50 mg tablet PO TID PRN prednisone 5 mg tablet PO DAILY PRN Rx Instructions: 1-3 tabs daily PRN azathioprine 50 mg tablet 100 mg PO DAILY meloxicam 15 mg tablet PO Simponi ARIA 12.5 mg/mL solution IV ONCE methylphenidate HCl 36 mg tablet extended release 24hr PO ONCE hydroxyzine HCl 10 mg tablet 10 mg PO QHS PRN pantoprazole [Protonix] 40 mg tablet,delayed release (DR/EC) 40 mg PO QAM Qty: 90 0RF calcium-magnesium 750-465 mg Tablet 1 tablet PO DAILY <Rosita Crespo APRN - Last Filed: 10/06/24 19:36> Follow-up/Referrals: Jc Paz MD [Physician] - 1 Week (Gastritis, chronic PPI use) Julianne De La Torre DO [Primary Care Provider] - <Rosita Crespo APRN - Last Filed: 10/06/24 19:36> Time of Disposition: 21:24 <Rosita Crespo APRN - Last Filed: 10/06/24 19:36> 21:24 <Td Lynn MD - Last Filed: 10/06/24 21:24>
--- OUTSIDE RECORDS SUMMARY | 2024-10-06 17:52 | XMS_ITS | Referral Summary ---
Author Organization [facility] HealthCare Care Team Providers Care Wildlife Biostation Research Ecologist Name Role Phone Lynnette Min Olya MILLWRIGHT HELPER Primary Care Provider [phone] Allergies Active Allergy Reactions Criticality Noted Date Comments Lamotrigine Swelling High 09/14/2018 Medications albuterol HFA (PROVENTIL HFA,VENTOLIN HFA,PROAIR HFA) 90 mcg/actuation inhaler Inhale 1-2 puffs every 4 (four) hours as needed 0 Active ALPRAZolam (XANAX) 0.25 mg tablet Take 0.25 mg by mouth nightly as needed Active citalopram (CeleXA) 10 mg tablet Take 10 mg by mouth Active DULoxetine DR (CYMBALTA) 60 mg capsule 9 Active escitalopram (LEXAPRO) 20 mg tablet escitalopram 20 mg tablet Active estradiol valerate-dienog est (Natazia) 3 mg/2 mg-2 mg/ 2 mg-3 mg/1 mg tablet TK 1 T PO QD 7 Active eszopiclone (LUNESTA) 2 mg tablet Take 2 mg by mouth Active folic acid (FOLVITE) 1 mg tablet Take 1,000 mcg by mouth daily [address] (PROTONIX) 40 mg EC tablet TK 1 T PO QD 7 Active sertraline (ZOLOFT) 100 mg tablet Take 150 mg by mouth daily 1 Active thyroid (Nature-Throid) 32.5 mg tablet TK 1 T PO EVERY DAY 7 Active valACYclovir (VALTREX) 1 gram tablet TAKE 2 TABLETS BY MOUTH EVERY 12 HOURS FOR 1 DAY NEEDED FOR OUTBREAK Active Active Problems No known active problems Social History Tobacco Use Types Packs/Day Years Used Date Smoking Tobacco: Never Smokeless Tobacco: Never Personal Safety Answer Date Recorded Getting School Help Needed Not on file 06/17 Comments Unknown Sex and Gender Information Value Date Recorded Sex Assigned at Not on file Legal Sex 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 Gender Identity Not on file Sexual Orientation Not on file Last Filed Vital Signs Vital Sign Reading Time Taken Comments Blood Pressure 120/74 12/08/2020 4:24 PM CDT Pulse 70 12/08/2020 4:24 PM CDT Temperature 37 C (98.6 F) 12/08/2020 4:24 PM CDT Respiratory Rate 16 12/08/2020 4:24 PM CDT Oxygen Saturation 98% 12/08/2020 4:24 PM CDT Inhaled Oxygen Concentration - - Weight 77.5 kg (170 lb 12.8 oz) 12/08/2020 4:24 PM CDT Height 160 cm (5' 3 ) 12/08/2020 4:24 PM CDT Body Mass Index 30.26 12/08/2020 4:24 PM CDT Plan of Treatment Not on file Insurance [employer] OOS Care Teams Wildlife Biostation Research Ecologist Relationship Specialty Start Date End Date Lynnette Min NP [address] [place] [address] [place] [id number] PCP - General Nurse Practitioner 06/28/20
--- OUTSIDE RECORDS SUMMARY | 2024-10-06 17:53 | XMS_ITS ---
Author Organization Unknown Patient Care team information Name Category Status Period Participants - - Proposed period not known - - - Proposed period not known -
--- OUTSIDE RECORDS SUMMARY | 2024-10-06 17:53 | XMS_ITS | Clinical Summary ---
Author Organization [facility] Address [address] [place] [address] Care Team Providers Care Clinical Services Specialist Name Role Phone Unavailable Primary Care Provider Unavailabl e Source Comments [facility],non-owned Affiliates and Associated Physician Practices is amultiple site organization consisting of ambulatory clinics and hospital sitesin [place], [place], [place] and [place]. This disclosure is being madepursuant to the Care Everywhere program and may not contain all information available regarding this patient. Last updated 18.[facility] [employer] Social History Tobacco Use Types Packs/Day Years Used Date Smoking Tobacco: Never Assessed Comments Unknown Sex and Gender Information Value Date Recorded Sex Assigned at Not on file Legal Sex Female 10:41 AM CDT Gender Identity Not on file Sexual Orientation Not on file Plan of Treatment Health Maintenance Due Date Last Done Comments COLOGUARD (AGES 45-75) - COL ON CA SCREENING 1977 COLON MONITORING 1977 COLONOSCOPY - COLON CA SCREENING 1977 CT COLONOGRAPHY - COLON CA SCREENING 1977 Colorectal Cancer Screening 1977 FIT - COLON CA SCREENING 1977 FLEX SIG - COLON CA SCREENING 1977 LIPID TESTING 1977 MAMMOGRAM 1977 PAP SMEAR 1977 HIV SCREENING 1992 HEPATITIS C SCREENING 08/15/1995 DTAP/TDAP/TD VACCINES (1 - Tdap) 1996 HEPATITIS B VACCINE (1 of 3 - 19+ 3-dose series) 1996 COVID-19 VACCINE ( - 2023-2 5 season) 2024 03/31/2022, 10/11/2020, 09/18/2020 DEPRESSION SCREENING 06/18/2024 INFLUENZA VACCINE (Season Ended) 2025 03/22/2023, 03/31/2022, 01/28/2021 ZOSTER VACCINE (1 of 2) 08/20/2027 HIB VACCINE Aged Out No longer eligi ble based on patient's age to complete this topic HPV VACCINE Aged Out No longer eligi ble based on patient's age to complete this topic MENINGOCOCCAL (Group B) VACCINE SHARED DECISION-MAKING Aged Out No longer eligible based on patient's age to complete this topic MENINGOCOCCAL GROUPS A/C/Y/W VACCINE Aged Out No longer eligible b ased on patient's age to complete this topic PNEUMOCOCCAL VACCINE Aged Out No long er eligible based on patient's age to complete this topic Insurance ANTH
--- OUTSIDE RECORDS SUMMARY | 2024-10-06 17:53 | XMS_ITS | Clinical Summary ---
Author Organization [facility]Care Care Team Providers Care Tag Press Operator Name Role Phone Lynnette Min Olya GREENSKEEPER Primary Care Provider [phone] Allergies Active Allergy Reactions Criticality Noted Date [...] Active Active Problems No known active problems Surgical History Surgery Date Site/Laterality Comments EAR SURGERY KNEE SURGERY ACL x 3 APPENDECTOMY THUMB SURGERY pins in right thumb LIPOSUCTION WISDOM TOOTH EXTRACTION Medical History Medical History Date Comments Depression Anxiety Sleep difficulties Fibromyalgia Family History Medical History Relation Name Comments No Known Problems Mother Diabetes Paternal Grandmother Thyroid disease Sister Relation Name Status Comments Father Alive Mother Alive Paternal Grandmother Sister Alive Social History Tobacco Use Types Packs/Day Years Used Date Smoking Tobacco: Never Smokeless Tobacco: Never Personal Safety Answer Date Recorded Getting School Help Needed Not on file 06/17 Comments Unknown Sex and Gender Information Value Date Recorded Sex Assigned at Not on file Legal Sex Female 11:41 AM ENROLLED AGENT Gender Identity Not on file Sexual Orientation Not on file Obstetrics History Last Filed Vital Signs Vital Sign Reading [...] 12/08/2020 4:24 PM CDT Plan of Treatment Health Maintenance Due Date Last Done Comments Breast Cancer Screening-Mammogram 1975 Cervical Cancer Screening 1975 Colon Cancer Screening-Colonoscopy 1975 Depression Screening 1975 Hepatitis C Screening 1975 Hepatitis B Screening 08/20/1995 Regular Well Visit/Exam 18-64 08/20/1995 Covid-19 Vaccine ( season) 2024 10/11/2020, 09/18/2020 Influenza Vaccine (#1) 2024 , 03/31/2022, 01/28/2021, Additional history exists DTaP/Tdap/Td Vaccine (2 - Td or Tdap) 11/12/2031 11/11/2021 Pneumococcal vaccine <65 Aged Out No longer eligible based on patient's age to complete this topic Insurance Care Teams Tag Press Operator Relationship Specialty Start Date End Date Lynnette Min NP [address] BROWN [address] [place] [id number] PCP - General Nurse Practitioner 06/28/20
[2024-10-06 17:56] LABS: Basophils Percent Auto 0.4 % (0.2-1.2); Eosinophils Percent Auto 0.2 % (0-4.4); Hematocrit 41.6 % (37.0-47.0); Hemoglobin 13.7 g/dL (12.0-15.0); Immature Granulocyte Absolute 0.03 K/mm3 (0.00-0.031); Immature Granulocyte Percent A 0.4 % (0-0.5); Lymphocytes Absolute Auto 1.49 K/mm3 (0.9-3.2); Lymphocytes Percent Auto 17.7 % (18.3-44.2); Mean Corpuscular HGB Conc 32.9 g/dl (32-36); Mean Corpuscular Hemoglobin 29.6 pg (26-34); Mean Corpuscular Volume 89.8 fl (80-100); Mean Platelet Volume 10.1 fl (7.4-10.4); Monocytes Absolute Auto 0.4 K/mm3 (0.1-0.6); Neutrophils Absolute Auto 6.4 K/mm3 (1.3-6.7); Neutrophils Percent Auto 76.3 % (45.5-73.1); Platelet Count Result 322 k/mm3 (150-375); Red Blood Count 4.63 M/mm3 (4.2-5.4); Red Cell Distribution Width 13.9 % (11.5-14.5); White Blood Count 8.4 K/mm3 (4.5-10.0)
[2024-10-06 17:57] LABS: Add Urine Microscopic? NO; Appearance Urine Clear (Clear); Bilirubin Urine Negative (Negative); Blood Urine Negative (Negative); Color Urine Yellow (Yellow); Glucose Urine UA Negative (Negative); Ketones Urine Negative (Negative); Leukocyte Esterase Ur Negative LEU/UL (Negative); Nitrate Urine Negative (Negative); Protein Urine Negative (Negative); Specific Grav Ur 1.007 (1.001-1.035); Urobilinogen Urine 0.2 mg/dL (<2.0)
[2024-10-06 18:06] LABS: Alanine Aminotransferase 25 U/L (6-35); Albumin Level 4.6 g/dL (3.5-5.1); Alkaline Phosphatase 70 U/L (38-126); Anion Gap 10 mmol/L (4-12); Aspartate Amino Transferase 22 U/L (14-36); Bilirubin,Total 0.6 mg/dL (0.2-1.3); Blood Urea Nitrogen 11 mg/dL (7-17); Calcium 9.6 mg/dL (8.4-10.2); Carbon Dioxide 27 mmol/L (22-30); Chloride 101 mmol/L (98-107); Estimated CRCL calculation 83 ml/min; Estimated Glomerular Filt Rate > 60; Glucose 98 mg/dL (65-110); Lipase 39 U/L (23-300); Potassium 4.3 mmol/L (3.4-5.0); Sodium 138 mmol/L (137-145)
[2024-10-06 18:20] LABS: Troponin I < 0.012 ng/mL (0.000-0.034)
[2024-10-06 18:28] LABS: Beta HCG Quantitative < 2.39 mIU/ML
[2024-10-06] MEDS: SODIUM CHLORIDE 0.9% IV 1,000 ML 999 ML IV CONT (20:08)
[2024-10-06] MEDS: FAMOTIDINE 20 MG/2 ML VIAL IV PUSH (20:09)
[2024-10-06] MEDS: PROCHLORPERAZINE EDISYLATE 10 MG/2 ML VIAL IV PUSH (20:14)
[2024-10-06] MEDS: dexAMETHasone SOD PHOS INJ 10 MG/ML 1 ML VIAL IV PUSH (20:14)
[2024-10-06] MEDS: diphenhydrAMINE HCl INJ 50 MG/ML VIAL 25 MG IV PUSH (20:17)
[2024-10-06 21:59] VITALS: BP 123/84; PULSE 81; RESP 16; O2SAT 97
== END 2024-10-06 22:00 | disposition home or self-care (01) ==
PROVIDERS: Registered Nurse; Emergency Provider Student in an Organized Health Care Education/Training Program; PCP Family Medicine
DX: K29.70 Gastritis, unspecified, without bleeding (principal); G43.909 Migraine, unspecified, not intractable, without status migrainosus; M06.9 Rheumatoid arthritis, unspecified; K21.9 Gastro-esophageal reflux disease without esophagitis; K44.9 Diaphragmatic hernia without obstruction or gangrene; Z79.899 Other long term (current) drug therapy; Z79.620 Long term (current) use of immunosuppressive biologic
CPT/HCPCS: 36415; 74177; 80053; 81003; 83690; 84484; 84702; 85025; 93005; 96361; 96374; 96375; 99284; J0780; J1100; J1200; J7030; Q9967

== ENCOUNTER 2024-12-09 01:05 | Day surgery (SDC) | payer BC, SELFPAY ==
[2024-12-02 12:59] VITALS: BMI 32.5
[2024-12-09 09:28] VITALS: BP 130/77; PULSE 72; RESP 12; TEMP 36.7; O2SAT 100; BMI 33.3
[2024-12-09 09:46] LABS: BEDSIDEPREGUCG Negative (Negative)
[2024-12-09] MEDS: LACTATED RINGERS 1,000 ML 150 ML IV CONT (09:50)
[2024-12-09] MEDS: SIMETHICONE ORAL SUSPENSION 20 MG/0.3 ML 30 ML BOTTLE 1.8 ML PO (09:51)
--- NOTE | 2024-12-09 09:53 | WPDANESEPPF ---
Anes - Initial Pre Proc Eval Procedure: Operation Date: 12/09/24 10:45 Proposed Procedures p Esophagogastroduodenoscopy&Screen Colon - Uday Rivera MD Date/Time: 12/09/24 09:53 Surgeon: Uday Rivera MD Pre Op Diagnosis: Encounter for screening for malignant neoplasm of Patient Data Age: 49 Gender: F Height: 1.6 m Weight: 85.3 kg Last Vital Signs Temp 36.7 C 12/09/24 09:28 Pulse 72 12/09/24 09:28 Resp 12 12/09/24 09:28 BP 130/77 12/09/24 09:28 Pulse Ox 100 12/09/24 09:28 O2 Del Method Room Air 12/09/24 09:28 Allergies Allergy/AdvReac Type Severity Reaction Status Date / Time lamotrigine (From Lamictal) Allergy Swelling Verified 12/09/24 09:33 of Lip/Tongue/Throat methotrexate AdvReac Mild Blister Verified 12/09/24 09:33 Home Medications ?Medication ?Instructions ?Recorded ?Confirmed ?Type calcium-magnesium 750 mg-465 mg 1 tablet PO DAILY 10/10/21 12/09/24 History tablet cholecalciferol (vitamin D3) 125 125 mcg PO DAILY 01/31/23 12/09/24 History mcg (5,000 unit) capsule mecobalamin (vitamin B12) 5,000 5,000 mcg PO DAILY 01/31/23 12/09/24 History mcg chewable tablet omega-3 fatty acids 1,000 mg 1,000 mg PO DAILY 01/31/23 12/09/24 History capsule diclofenac sodium 1 % topical gel 4 g topical QID #100 grams 07/05/23 12/09/24 Rx (Voltaren Arthritis Pain) ferrous sulfate 325 mg (65 mg 325 mg PO DAILY PRN Menstrual cycle 07/05/23 12/02/24 History iron) tablet (Feosol) azathioprine 50 mg tablet 100 mg PO DAILY 09/25/24 12/09/24 History duloxetine 30 mg capsule,delayed 30 mg PO DAILY 09/25/24 12/09/24 History release (Cymbalta) duloxetine 60 mg capsule,delayed 60 mg PO .am 09/25/24 12/09/24 History release golimumab 12.5 mg/mL intravenous 12.5 mg IV .q2mo 09/25/24 12/09/24 History solution (Simponi ARIA) hydroxyzine HCl 10 mg tablet 10 mg PO QHS PRN insomnia 09/25/24 12/02/24 History methylphenidate HCl 36 mg 36 mg PO .am 09/25/24 12/09/24 History tablet,extended release 24 hr pantoprazole 40 mg tablet,delayed 40 mg PO QAM #90 tabs 09/25/24 12/09/24 Rx release (Protonix) prednisone 5 mg tablet 5 mg PO DAILY PRN Flare ups 09/25/24 12/02/24 History tramadol 50 mg tablet 50 mg PO TID PRN pain 09/25/24 12/02/24 History prochlorperazine maleate 10 mg 10 mg PO Q8H PRN nausea and 10/06/24 12/02/24 Rx tablet (Compazine) vomiting #14 tabs celecoxib 200 mg capsule (Celebrex) 200 mg PO BID 10/21/24 12/09/24 History methylphenidate HCl 18 mg 18 mg PO QPM PRN Concetrating i 10/21/24 12/02/24 History tablet,extended release 24 hr (Concerta) valacyclovir 1 gram tablet 1,000 mg PO DAILY #4 tabs 10/21/24 12/09/24 Rx valacyclovir 500 mg tablet 1,000 mg PO DAILY PRN Flare up 10/21/24 12/02/24 History (Valtrex) famotidine 40 mg tablet 40 mg PO DAILY #90 tabs 10/31/24 12/09/24 Rx folic acid 1 mg tablet 1 mg PO DAILY #90 tabs 10/31/24 12/09/24 Rx estradiol-dienogest 3 mg/2 mg-2 1 tablet PO DAILY 12/02/24 12/09/24 History mg/2 mg-3 mg/1 mg tablet (Natazia) Laboratory Tests 12/09/24 09:44 POC Urine HCG, Qual Negative (Negative) Patient hx anesthesia problems: none Family hx anesthesia problems: none Results Review: All pre-operative results and documents have been reviewed as part of the pre-operative evaluation. [facility] Past Medical History Medical History delivery delivered Femur fracture, right ACL (anterior cruciate ligament) rupture Thumb fracture Left elbow pain Surgical History Surgical History History of appendectomy [place] teeth extracted Family History Family History Grandparent Heart disease Diabetes mellitus Cancer Luo Gehrig disease Acute Crohn's disease Other Unknown family medical history Social History Social History Smoking status: Never smoker Alcohol intake: never Alcohol use details: occasionally Substance use: never Substance use type: does not use Lack of Transportation: No Lack of Food: Never True Current Housing: I Have Housing Concerned About Future Housing: No Difficulty Paying Gas/Electric Bills: No Difficulty Paying for Meds: No Currently Unemployed: No Living arrangements: with family Spiritual care concerns: No Anes - Eval Final PreProcedure Day of Procedure 12/09/24 09:53 Patient weight: obese Heart: regular rate and rhythm Lungs: clear to auscultation Airway: Mallampati scale class 1 Neurological: alert and oriented Last oral intake: >/= 8 hours ASA classification: III Emergent: no Anesthetic plan: proceed Anesthesia type and monitoring: general GIVS and standard monitoring Results Review: All pre-operative results and documents have been reviewed as part of the pre-operative evaluation. Informed Consent: The patient's anesthetic plan and its attendant risks and benefits were discussed with the patient/family/POA. Questions were solicited and answers provided to the satisfaction of the patient/family/POA.
--- NOTE | 2024-12-09 10:39 | PM.IMHP ---
H&P: HPI History of Present Illness Date/Time: 12/09/24 10:39 Chief Complaint: GERD-screening colonoscopy Narrative: the patient has suffered from GERD since she was 20 years old, initially 4 with Nexium and then switched to pantoprazole which is not helping for her frequent. She denies dysphagia. She has been also complaining of abdominal pain preferably located in the epigastrium with some drift in her left upper quadrant. in addition she is referred for a screening colonoscopy. Review of Systems Review of Systems: All systems reviewed & are unremarkable except as noted in HPI and below PMFSH Past Medical History Medical History delivery delivered Femur fracture, right ACL (anterior cruciate ligament) rupture Thumb fracture Left elbow pain Surgical History Surgical History History of appendectomy [place] teeth extracted Family History Family History Grandparent Heart disease Diabetes mellitus Cancer Gehrig disease Acute Crohn's disease Other Unknown family medical history Social History Social History Smoking status: Never smoker Alcohol intake: never Alcohol use details: occasionally Substance use: never Substance use type: does not use Lack of Transportation: No Lack of Food: Never True Current Housing: I Have Housing Concerned About Future Housing: No Difficulty Paying Gas/Electric Bills: No Difficulty Paying for Meds: No Currently Unemployed: No Living arrangements: with family Spiritual care concerns: No Meds Home Medications and Allergies Home Medications ?Medication ?Instructions ?Recorded ?Confirmed ?Type calcium-magnesium 750 mg-465 mg 1 tablet PO DAILY 10/10/21 12/09/24 History tablet cholecalciferol (vitamin D3) 125 125 mcg PO DAILY 01/31/23 12/09/24 History mcg (5,000 unit) capsule mecobalamin (vitamin B12) 5,000 5,000 mcg PO DAILY 01/31/23 12/09/24 History mcg chewable tablet omega-3 fatty acids 1,000 mg 1,000 mg PO DAILY 01/31/23 12/09/24 History capsule diclofenac sodium 1 % topical gel 4 g topical QID #100 grams 07/05/23 12/09/24 Rx (Voltaren Arthritis Pain) ferrous sulfate 325 mg (65 mg 325 mg PO DAILY PRN Menstrual cycle 07/05/23 12/02/24 History iron) tablet (Feosol) azathioprine 50 mg tablet 100 mg PO DAILY 09/25/24 12/09/24 History duloxetine 30 mg capsule,delayed 30 mg PO DAILY 09/25/24 12/09/24 History release (Cymbalta) duloxetine 60 mg capsule,delayed 60 mg PO .am 09/25/24 12/09/24 History release golimumab 12.5 mg/mL intravenous 12.5 mg IV .q2mo 09/25/24 12/09/24 History solution (Simponi ARIA) hydroxyzine HCl 10 mg tablet 10 mg PO QHS PRN insomnia 09/25/24 12/02/24 History methylphenidate HCl 36 mg 36 mg PO .am 09/25/24 12/09/24 History tablet,extended release 24 hr pantoprazole 40 mg tablet,delayed 40 mg PO QAM #90 tabs 09/25/24 12/09/24 Rx release (Protonix) prednisone 5 mg tablet 5 mg PO DAILY PRN Flare ups 09/25/24 12/02/24 History tramadol 50 mg tablet 50 mg PO TID PRN pain 09/25/24 12/02/24 History prochlorperazine maleate 10 mg 10 mg PO Q8H PRN nausea and 10/06/24 12/02/24 Rx tablet (Compazine) vomiting #14 tabs celecoxib 200 mg capsule (Celebrex) 200 mg PO BID 10/21/24 12/09/24 History methylphenidate HCl 18 mg 18 mg PO QPM PRN Concetrating i 10/21/24 12/02/24 History tablet,extended release 24 hr (Concerta) valacyclovir 1 gram tablet 1,000 mg PO DAILY #4 tabs 10/21/24 12/09/24 Rx valacyclovir 500 mg tablet 1,000 mg PO DAILY PRN Flare up 10/21/24 12/02/24 History (Valtrex) famotidine 40 mg tablet 40 mg PO DAILY #90 tabs 10/31/24 12/09/24 Rx folic acid 1 mg tablet 1 mg PO DAILY #90 tabs 10/31/24 12/09/24 Rx estradiol-dienogest 3 mg/2 mg-2 1 tablet PO DAILY 12/02/24 12/09/24 History mg/2 mg-3 mg/1 mg tablet (Natazia) Allergies Allergy/AdvReac Type Severity Reaction Status Date / Time lamotrigine (From Lamictal) Allergy Swelling Verified 12/09/24 09:33 of Lip/Tongue/Throat methotrexate AdvReac Mild Blister Verified 12/09/24 09:33 Vital Signs Vital Signs - 24 hr 12/09/24 09:28 Temperature 98.1 F Pulse Rate 72 Respiratory Rate 12 Blood Pressure 130/77 Pulse Oximetry 100 Oxygen Delivery Room Air Exam Const: General: cooperative and healthy appearing Resp: Effort & Inspection: normal respiratory effort and able to speak in complete sentences Auscultation: clear to auscultation bilaterally Cardio: Rate: regular rate Rhythm: regular rhythm GI: Inspection: normal to inspection GI Palp: No No hepatosplenomegaly present Auscultation: normal bowel sounds Rectal Exam: deferred Skin: General skin exam: normal color Psych: Appearance: grossly normal Mental Status: mental status grossly normal Assessment and Plan Assessment and plan (1) Screening for colon cancer: Code(s): Z12.11 - Encounter for screening for malignant neoplasm of colon Status: Acute Assessment and Plan: The patient is deemed a good candidate for the procedures. Consent signed. Will proceed. (2) GERD (gastroesophageal reflux disease): Code(s): K21.9 - Gastro-esophageal reflux disease without esophagitis Status: Acute
--- NOTE | 2024-12-09 10:59 | S_PTH ---
PATIENT: Bernie Correa LOC: [facility] U#:[id number] AGE/SX: 49/F ROOM: RE12/09/[address]: Uday Rivera MD : 1975 BED: DIS: 12/09/2024 SPEC #: [id number] RECD: 12/09/24 12:32 STATUS: DILLON REMaximo #: [id number] NOLAN: 12/09/24 10:[address]: Uday Rivera DEPT: [facility] Surgical RECD BY: Carlos Manuel John ENTERED: 12/09/24 12:32 SP TYPE: Surgical OTHR DR: Julianne De La Torre DO Tissues: A - Gastric Biopsy B - Gastric Biopsy Procedures: Hematoxylin and Eosin Stain Gross and Microscopic Level 4
--- NOTE | 2024-12-09 11:01 | SUR.OPER ---
EGD end time: 1056, Colonoscopy start time: 1101
[2024-12-09 11:17] VITALS: BP 128/81; PULSE 82; RESP 17; O2SAT 100
[2024-12-09 11:27] VITALS: BP 126/76; PULSE 86; RESP 20; O2SAT 100
[2024-12-09 11:37] VITALS: BP 128/77; PULSE 87; RESP 16; O2SAT 100
== END 2024-12-09 11:48 | disposition home or self-care (01) ==
PROVIDERS: Anesthesiology; PCP Family Medicine; Visit Provider Internal Medicine Gastroenterology
PROC: 0DJ08ZZ Inspection of Upper Intestinal Tract, Via Natural or Artificial Opening Endoscopic (ICD-10-PCS; CPT 45378; principal; 2024-12-09 10:45)
DX: Z12.11 Encounter for screening for malignant neoplasm of colon (principal); K21.9 Gastro-esophageal reflux disease without esophagitis; K29.30 Chronic superficial gastritis without bleeding; E66.9 Obesity, unspecified; Z68.33 Body mass index [BMI] 33.0-33.9, adult; Z79.620 Long term (current) use of immunosuppressive biologic; Z79.52 Long term (current) use of systemic steroids; Z79.891 Long term (current) use of opiate analgesic; Z79.1 Long term (current) use of non-steroidal anti-inflammatories (NSAID); Z98.890 Other specified postprocedural states; Z80.9 Family history of malignant neoplasm, unspecified; Z82.49 Family history of ischemic heart disease and other diseases of the circulatory system
CPT/HCPCS: 43239; 45378; 88305; J2003; J2704; J7120

== ENCOUNTER 2025-01-29 09:46 | Emergency (ER) | payer BC, SELFPAY ==
--- NOTE | ~2025-01-29 | XR_ITS ---
EXAMINATION: XR shoulder LT min 2V DATE: 01/29/2025 10:38 INDICATION: Fall. Medial pain. TECHNIQUE: AP internally and externally rotated, AP oblique externally rotated and transscapular Y vi ews of the affected shoulder were obtained. COMPARISON: None FINDINGS: There is widening of the left acromioclavicular joint with minimal cranial elevation of the distal le ft clavicle relative to the left chromium. Findings are concerning for a left AC separation. Tissue swelling about the left AC joint. No fracture. No dislocation of the left humeral head. No significant degenerative change. IMPRESSION: 1.There is widening of the left acromioclavicular joint with minimal cranial elevation of the distal left clavicle relative to the left chromium. Findings are concerning for a left AC separation. 2. No fracture identified. Reviewed, dictated and finalized at location A. IMPRESSION: 1.There is widening of the left acromioclavicular joint with minimal cranial el evation of the distal left clavicle relative to the left chromium. Findings are concerning for a left AC separation. 2. No fracture identified.
--- NOTE | ~2025-01-29 | XR_ITS ---
[id number] 01/29/2025 10:39 Indication: Status post fall. Neck pain. Procedure: 4 view cervical spine Comparison: No prior studies for comparison. Findings: There is disc narrowing and endplate degenerative change at C5-6 and C6-7. Straightening of cervical lordosis. Odontoid process is normal. There is mild uncinate hypertrophy at C5-6 and C6-7. Lung apices are normal. No prevertebral soft tissue abnormality. Impression: 1: Mild cervical spondylosis. Reviewed, dictated and finalized at location A. Impression: 1: Mild cervical spondylosis.
[2025-01-29 10:08] VITALS: BP 131/85; PULSE 90; RESP 16; TEMP 37; O2SAT 100
--- NOTE | 2025-01-29 10:38 | ED_ITS ---
HPI - Extremity Injury (Upper) General Chief Complaint: Extremity Injury, Upper Stated Complaint: FALL Time Seen by Provider: 01/29/25 10:10 Source: patient and RN notes reviewed Mode of arrival: ambulatory Limitations: no limitations History of Present Illness HPI narrative: 49-year-old female presents Express Care complaining of left shoulder injury. Patient says she fell down the steps and caught herself with her left arm causing pain to her left shoulder. Patient says she has a history of chronic left shoulder/neck issues that she is currently being evaluated for. After fall the pain is gotten worse in her left shoulder is radiating into her left neck and across to her right shoulder. Patient reports pain with movement of her left shoulder. Patient denies any neck pain, back pain, hitting her head, loss of consciousness, dizziness, lightheadedness, nausea, vomiting, vision changes, or any other symptoms. Patient took a methocarbamol prior to arrival. Related Data Home Medications ?Medication ?Instructions ?Recorded ?Confirmed ?Last Taken ?Type calcium-magnesium 750 mg-465 mg 1 tablet PO DAILY 10/10/21 01/29/25 12/08/24 H istory tablet cholecalciferol (vitamin D3) 125 125 mcg PO DAILY 01/31/23 01/29/25 12/08/24 History mcg (5,000 unit) capsule mecobalamin (vitamin B12) 5,000 5,000 mcg PO DAILY 01/31/23 01/29/25 12/08/24 History mcg chewable tablet omega-3 fatty acids 1,000 mg 1,000 mg PO DAILY 01/31/23 01/29/25 12/08/24 History capsule ferrous sulfate 325 mg (65 mg 325 mg PO DAILY PRN Menstrual cycle 07/05/23 01/29/25 Unknown History iron) tablet (Feosol) azathioprine 50 mg tablet 100 mg PO DAILY 09/25/24 01/29/25 12/09/24 History duloxetine 30 mg capsule,delayed 30 mg PO DAILY 09/25/24 01/29/25 12/09/24 History release (Cymbalta) duloxetine 60 mg capsule,delayed 60 mg PO .am 09/25/24 01/29/25 12/09/24 History release golimumab 12.5 mg/mL intravenous 12.5 mg IV .q2mo 09/25/24 01/29/25 12/08/24 History solution (Simponi ARIA) hydroxyzine HCl 10 mg tablet 10 mg PO QHS PRN insomnia 09/25/24 01/29/25 Unknown History methylphenidate HCl 36 mg 36 mg PO .am 09/25/24 01/29/25 12/08/24 History tablet,extended release 24 hr prednisone 5 mg tablet 5 mg PO DAILY PRN Flare ups 09/25/24 01/29/25 Unknown History tramadol 50 mg tablet 50 mg PO TID PRN pain 09/25/24 01/29/25 Unknown History celecoxib 200 mg capsule (Celebrex) 200 mg PO BID 10/21/24 01/29/25 12/09/24 History methylphenidate HCl 18 mg 18 mg PO QPM PRN Concetrating i 10/21/24 01/29/25 Unknown History tablet,extended release 24 hr (Concerta) estradiol-dienogest 3 mg/2 mg-2 1 tablet PO DAILY 12/02/24 01/29/25 12/08/24 History mg/2 mg-3 mg/1 mg tablet (Natazia) dextromethorphan IR 45 1 tablet PO QAM 01/26/25 01/29/25 Unknown History mg-bupropion ER 105 mg biphasic tablet (Auvelity) Allergies Allergy/AdvReac Type Severity Reaction Status Date / Time lamotrigine (From Lamictal) Allergy Swelling Verified 01/29/25 10:23 of Lip/Tongue/Throat methotrexate AdvReac Mild Blister Verified 01/29/25 10:23 Review of Systems Review of Systems: CONSTITUTIONAL: Denies fever, chills, or sweats. EYES: Denies visual changes, redness, or discharge. ENT: Denies rhinorrhea, congestion, sore throat, or otalgia. CARDIOVASCULAR: Denies chest pain, palpitations, dizziness, lightheadedness or edema. RESPIRATORY: Denies cough or dyspnea. GASTROINTESTINAL: Denies abdominal pain, nausea, vomiting, or diarrhea. GENITOURINARY: Denies dysuria or hematuria. SKIN: Denies rash, wound, or itching. MUSCULOSKELETAL: Denies neck pain, back pain, joint pain, or myalgia. Positive for left shoulder injury. NEUROLOGIC: Denies headache, numbness, loss of consciousness, or weakness. PSYCHIATRIC: Denies anxiety or depression. All other systems reviewed are negative, except as documented in HPI. FOR[facility]LY [facility] Past Medical History Medical History delivery delivered Femur fracture, right ACL (anterior cruciate ligament) rupture Thumb fracture Left elbow pain Surgical History Surgical History History of appendectomy [place] teeth extracted Family History Family History Grandparent Heart disease Diabetes mellitus Cancer Gehrig disease Acute Crohn's disease Other Unknown family medical history Social History Social History Smoking status: Never smoker Alcohol intake: never Alcohol use details: occasionally Substance use: never Substance use type: does not use Lack of Transportation: No Lack of Food: Never True Current Housing: I Have Housing Concerned About Future Housing: No Difficulty Paying Gas/Electric Bills: No Difficulty Paying for Meds: No Currently Unemployed: No Living arrangements: with family Spiritual care concerns: No Comments At the time of my signature, I reviewed and agree with the nursing past medical, surgical, social, and family history. There is no relevant family history perti nent to the patient complaint. Exam Narrative: GENERAL: This is a well-nourished, well-developed adult, in no apparent distress. They are non ill-appearing, nontoxic appearing. Patient is wearing a sling. HEAD: normocephalic, atraumatic. EYES: Sclera clear/white. Vision is grossly intact. Conjunctiva normal. Extraocular movement intact. EARS: External ears normal Hearing grossly intact. NOSE: External nose normal THROAT: Mucous membranes moist NECK: Neck supple. Nontender without lymphadenopathy, masses, or thyromegaly. No cervical point tenderness, crepitus or step-offs. Tenderness to palpation to left upper trapezius muscle. CARDIOVASCULAR: Regular rate and rhythm RESPIRATORY: Respiratory rate normal, respiratory effort nonlabored, no respiratory distress NEURO: awake, alert, and oriented to person, place and time. There were no obvious focal neurologic abnormalities. EXTREMITIES: Left shoulder: No obvious deformity, injury, swelling, bruising, redness. Tenderness through full range of motion. Tenderness to palpation to the lateral anterior shoulder. Capillary refill less than 3 seconds. Left radial Pulse 2 +palpable. Normal sensation. Neurovascular status intact distal injury. BACK: Nontender without deformity. No thoracic or lumbar point tenderness. No crepitus or step-offs. Course Course Emergency Course: Portions of this record may have been created with voice recognition software Level of Care: Express Care Visit Vital Signs Vital signs: Vital Signs Temperature 98.6 F 01/29/25 10:08 Pulse Rate 90 01/29/25 10:08 Respiratory Rate 16 01/29/25 10:08 Blood Pressure 131/85 01/29/25 10:08 Pulse Oximetry 100 01/29/25 10:08 Temperature 98.6 F 01/29/25 10:08 Pulse Rate 90 01/29/25 10:08 Respiratory Rate 16 01/29/25 10:08 Blood Pressure 131/85 01/29/25 10:08 Pulse Oximetry 100 01/29/25 10:08 Reviewed MDM - Extremity Injury (Upper) MDM Narrative Medical decision making narrative: Will obtain x-ray of left shoulder and cervical spine to assess for fractures or any acute findings. No cervical point tenderness, no midline tenderness, no crepitus or step-off. Patient's pain is primarily her left upper trapezius muscle on her left shoulder has tenderness to the lateral left shoulder. X-ray left shoulder shows possible AC joint separation. X-ray of cervical spine shows mild cervical spondylosis. Patient already has a sling. Will refer patient orthopedist for further evaluation of her shoulder injury. Patient already takes muscle relaxers and has pain medicine home. Patient may take that as prescribed. Discussed physical exam findings. Advised supportive measures and signs/symptoms to go to the ER. Pt is appropriate for outpt treatment and f/u. Differential Diagnosis Differential diagnosis: Likely other (Cervical strain, shoulder sprain, shoulder injury, shoulder fracture, humerus fracture, cervical spondylosis, AC joint separation, rotator cuff injury) Imaging Data Radiologist's impression: ITS Impressions Shoulder X-Ray 01/29/25 10:48 IMPRESSION: 1.There is widening of the left acromioclavicular joint with minimal cranial elevation of the distal left clavicle relative to the left chromium. Findings are concerning for a left AC separation. 2. No fracture identified. Cervical Spine X-Ray 01/29/25 10:50 Impression: 1: Mild cervical spondylosis. Critical Care Time Critical Care Time Critical Care Time: No Discharge Plan Discharge Clinical Impression: Cervical spondylosis Injury of left shoulder Qualifiers: Encounter type: initial encounter Qualified Code(s): S49.92XA - Unspecified injury of left shoulder and upper arm, initial encounter Fall Qualifiers: Encounter type: initial encounter Qualified Code(s): W19.XXXA - Unspecified fall, initial encounter Patient Disposition: Home Condition: Stable Instructions: Antibiotic Form, Acromioclavicular Separation (ED), Cervical Radiculopathy (ED), Early Postoperative or Post Injury Shoulder Exercises (ED) Additional Instructions: The x-ray of your neck shows evidence of mild cervical spondylosis. The x-ray of your left shoulder shows a possible right AC joint injury. Rest and elevate the left arm; use the sling for comfort. Apply ice 15-20 minute intervals several times a day You may take ibuprofen 600 mg to 800 mg every 6-8 hours. Do not exceed more than 800 mg of ibuprofen per dose. Do not exceed more than 3200 mg ibuprofen in a day. You may take up to 1000 mg Tylenol every 6-8 hours. Do not exceed 1000 mg per dose, do exceed more than 4000 mg of Tylenol in a day. Follow up with your primary care provider 3-5 days. You will also need to follow-up with orthopedist in 3-5 days for further evaluation and management of your left shoulder injury. Patient Language: Lao Prescriptions: No Action cholecalciferol (vitamin D3) 125 mcg (5,000 unit) capsule 125 mcg PO DAILY mecobalamin (vitamin B12) 5,000 mcg tablet,chewable 5,000 mcg PO DAILY omega-3 fatty acids 1,000 mg capsule 1,000 mg PO DAILY ferrous sulfate [Feosol] 325 mg (65 mg iron) tablet 325 mg PO DAILY PRN (Reason: Menstrual cycle) diclofenac sodium [Voltaren Arthritis Pain] 1 % gel 4 g topical QID Qty: 100 2RF Rx Instructions: apply to single knee, ankle, foot; for foot includes sole/toes/top of foot duloxetine [Cymbalta] 30 mg capsule,delayed release(DR/EC) 30 mg PO DAILY Patient Comments: Total of 90mg duloxetine 60 mg capsule,delayed release(DR/EC) 60 mg PO .am tramadol 50 mg tablet 50 mg PO TID PRN (Reason: pain) prednisone 5 mg tablet 5 mg PO DAILY PRN (Reason: Flare ups) Rx Instructions: 1-3 tabs daily PRN azathioprine 50 mg tablet 100 mg PO DAILY Simponi ARIA 12.5 mg/mL solution 12.5 mg IV .q2mo methylphenidate HCl 36 mg tablet extended release 24hr 36 mg PO .am hydroxyzine HCl 10 mg tablet 10 mg PO QHS PRN (Reason: insomnia) valacyclovir 1 gram tablet 1,000 mg PO DAILY Qty: 4 0RF Rx Instructions: Take one tablet daily. If your symptoms do not improve, take a second dose. Do not take more than 2 tablets in 48 hours celecoxib [Celebrex] 200 mg capsule 200 mg PO BID methylphenidate HCl [Concerta] 18 mg tablet extended release 24hr 18 mg PO QPM PRN (Reason: Concetrating i) Patient Comments: taken in the afternoon famotidine 40 mg tablet 40 mg PO BID Qty: 60 3RF cetirizine [Zyrtec] 10 mg tablet 10 mg PO DAILY Qty: 90 3RF Auvelity 45-105 mg tablet, IR and ER, biphasic 1 tablet PO QAM Nurtec ODT 75 mg tablet,disintegrating 75 mg PO .every other day Qty: 45 0RF methocarbamol 750 mg tablet 750 mg PO BID Qty: 180 0RF calcium-magnesium 750-465 mg Tablet 1 tablet PO DAILY Natazia 3 mg/2 mg-2 mg/ 2 mg-3 mg/1 mg tablet 1 tablet PO DAILY folic acid 1 mg tablet 1 mg PO DAILY Qty: 90 1RF sucralfate 1 gram tablet See Rx Instructions .ROUTE .COMPLEX Qty: 360 0RF Dose Instruction: TAKE 1 TABLET BY MOUTH BEFORE MEALS AND AT BEDTIME Rx Instructions: TAKE 1 TABLET BY MOUTH BEFORE MEALS AND AT BEDTIME dexlansoprazole [Dexilant] 60 mg capsule,biphase delayed releas 60 mg PO DAILY Qty: 30 6RF Follow-up/Referrals: Chance Hardin MD [Physician] - Julianne De La Torre DO [Primary Care Provider] - Stand Alone Forms: Work/School Release IP Time of Disposition: 11:03
== END 2025-01-29 11:13 | disposition home or self-care (01) ==
PROVIDERS: PCP Family Medicine
DX: M47.812 Spondylosis without myelopathy or radiculopathy, cervical region (principal); S49.92XA Unspecified injury of left shoulder and upper arm, initial encounter; W10.9XXA Fall (on) (from) unspecified stairs and steps, initial encounter
CPT/HCPCS: 72040; 73030; 99214; G0463

== ENCOUNTER 2025-02-12 07:28 | Outpatient (CLI) | payer BC, SELFPAY ==
--- NOTE | ~2025-02-12 | NM_ITS ---
EXAM: NM gastric emptying study DATE: 02/12/2025 13:44 CDT INDICATION: Nausea and regurgitation. Epigastric pain. TECHNIQUE: A gastric emptying study was performed using the methodology of Preeti DU, et al. J Nucl Med 2007; 48:568-572. The patient was given a meal consisting of 2 scrambled eggs labeled with 1 mCi Tc-99m sulfur colloid, 2 slices of toast, two packages of jam, and approximately 120 mL of water. Si multaneous anterior and posterior 1-min images of the abdomen were obtained with the patient supine at multiple time points over a total period of 4 hours. The geometric mean of anterior and posterior views was determined, and the percentage retention was calculated for each time point. COMPARISON: None. FINDINGS: Gastric retention of the radiotracer-labeled meal was 65%, 34%, and 13% at the 1-hour, 2-hour, and 4-hour time points, respectively. With this technique, apparent rapid gastric emptying is suggested by <30% gastric retention at 1 hour. Delayed gastric emptying is defined by gastric retention of >90% at 1 hour, >60% retention at 2 hours, or >10% retention at 4 hours. IMPRESSION: 1. Delayed gastric emptying. Reviewed, dictated and finalized at location O.
--- OUTSIDE RECORDS SUMMARY | 2025-02-12 07:32 | XMS_ITS | Clinical Summary ---
Author Organization [facility] Address [address] [place] [address] Care Team Providers Care Master Ship Name Role Phone Unavailable Primary Care Provider Unavailabl e Source Comments [facility],non-owned Affiliates and Associated Physician Practices is amultiple site organization consisting of ambulatory clinics and hospital sitesin [place], [place], [place] and [place]. This disclosure is being madepursuant to the Care Everywhere program and may not contain all information available regarding this patient. Last updated 18.[facility] [employer] Social History Tobacco Use Types Packs/Day Years [...] SCREENING 1977 LIPID TESTING 1977 MAMMOGRAM 1977 HIV SCREENING 1992 HEPATITIS C SCREENING 08/15/1995 DTAP/TDAP/TD VACCINES (1 - Tdap) 1996 HEPATITIS B VACCINE (1 of 3 - 19+ 3-dose series) 1996 PAP SMEAR 1998 COVID-19 VACCINE (2023-2 5 season) 2024 03/31/2022, 10/11/2020, 09/18/2020 DEPRESSION SCREENING 06/18/2024 INFLUENZA VACCINE (#1) 2025 3, 03/31/2022, 01/28/2021 ZOSTER VACCINE (1 of 2) [...] patient's age to complete this topic Insurance [facility] SELF [facility]Y NO INSURANCE Member Subscriber Plan / Payer (Ef fective for All Dates) Name:Analy Murray Member ID:Not on file Relation to Subscriber:Not on file Name:ANALY MURRAY Subscriber ID:Not on file (Home) Address: [address] [place] [id number] Payer ID:Not on file Group ID:Not on file Type:Self Pay Address: [place], [place]
--- OUTSIDE RECORDS SUMMARY | 2025-02-12 07:32 | XMS_ITS | Clinical Summary ---
Author Organization [facility] Care Team Providers Care Facility Manager Histology Name Role Phone Julianne De La Torre DO Primary Care Provider [phone]- [phone] Allergies Active Allergy Reactions Criticality Noted Date [...] Active Active Problems No known active problems Encounters Date Type Department Care Team Description 02/06/2025 3:28 PM CDT - 02/06/2025 11:59 PM CDT Hospital Encounter [facility] [address] [place] [address] Chronic migraine without aura, not intractable, without status migrainosus Discharge Disposition: Discharge to home or self care 01/28/2025 10:24 AM CDT - 01/28/2025 11:59 PM CDT Hospital Encounter [facility] [address] [place] [id number] Pain in other joint; Arthralgia of left foot; Arthralgia of right foot; Arthralgia of left ankle; Arthralgia of right ankle; Arthralgia of left wrist; Arthralgia of right wrist; Arthralgia of left hand; Arthralgia of right hand Discharge Disposition: Discharge to home or self care from Last 3 Months Surgical History Surgery Date Site/Laterality Comments EAR [...] Date Smoking Tobacco: Never Smokeless Tobacco: Never Comments Unknown Sex and Gender Information Value Date Recorded Sex Assigned at Not on file Legal Sex Female 11:41 AM SET UP PERSON Gender Identity Not on file Sexual Orientation [...] 4:24 PM CDT Height 160 cm (5' 3) 12/08/2020 4:24 PM CDT Body Mass Index 30.26 12/08/2020 4:24 PM CDT Plan of Treatment Health Maintenance Due Date Last Done Comments Breast Cancer Screening-Mammogram 1977 Cervical Cancer Screening 1977 Colon Cancer Screening-Colonoscopy 1977 Depression Screening 1977 Hepatitis C Screening 1977 Hepatitis B Screening 08/20/1995 Regular Well Visit/Exam 18-64 08/20/1995 Covid-19 Vaccine ( season) 2024 10/11/2020, 09/18/2020 Influenza Vaccine (#1) 2025 3, 03/31/2022, 01/28/2021, Additional history exists DTaP/Tdap/Td Vaccine (2 - Td or Tdap) 11/12/2031 11/11/2021 Pneumococcal vaccine <65 Aged Out No longer eligible based on patient's age to complete this topic Procedures Procedure Name Priority Date/Time Associated Diagnosis Comments MRI BRAIN WO CONTRAST Schedule Routine, Read Routine (OP Routine) 02/06/2025 4:12 PM CDT Chronic migraine without aura, not intractable, without status migrainosus XR HAND RIGHT 2 VIEWS Schedule Routine, Read Routine (OP Routine) 01/28/2025 10:54 AM CDT Arthralgia of right hand XR HAND LEFT 2 VIEWS Schedule Routine, Read Routine (OP Routine) 01/28/2025 10:54 AM CDT Arthralgia of left hand XR WRIST RIGHT 2 VIEWS Schedule Routine, Read Routine (OP Routine) 01/28/2025 10:54 AM CDT Arthralgia of right wrist XR WRIST LEFT 2 VIEWS Schedule Routine, Read Routine (OP Routine) 01/28/2025 10:54 AM CDT Arthralgia of left wrist Arthralgia of right wrist XR ANKLE RIGHT 2 VIEWS Schedule Routine, Read Routine (OP Routine) 01/28/2025 10:54 AM CDT Arthralgia of right ankle XR ANKLE LEFT 2 VIEWS Schedule Routine, Read Routine (OP Routine) 01/28/2025 10:54 AM CDT Arthralgia of left ankle XR FOOT RIGHT 2 VIEWS Schedule Routine, Read Routine (OP Routine) 01/28/2025 10:54 AM CDT Arthralgia of right foot XR FOOT LEFT 2 VIEWS Schedule Routine, Read Routine (OP Routine) 01/28/2025 10:54 AM CDT Arthralgia of left foot XR SACROILIAC JOINTS 3 OR MORE VIEWS Schedule Routine, Read Routine (OP Routine) 01/28/2025 10:54 AM CDT Pain in other joint from Last 3 Months Results * MRI Brain WO Contrast (02/06/2025 4:12 PM CDT) Anatomical Region Laterality Modality Head and Neck N/A Magnetic Resonan ce 02/09/2025 7:55 AM CDT Narrative 02/09/2025 7:58 AM CDT EXAM DESCRIPTION: MRI BRAIN WO CONTRAST REASON FOR STUDY: chronic migraine Migraines for years, increasing in frequency. Daily headaches now. TECHNIQUE: Multiplanar imaging includes non-contrasted T1, T2, FLAIR, and diffusion with ADC map sequences. Additional sequence(s) sensitive to blood products. Images stored on PACS. COMPARISON: None available. FINDINGS: There is no diffusion restriction to suggest acute/recent infarction. No parenchymal susceptibility signal to indicate blood degradation products. The size and configuration of the ventricles and sulci normal for the patient's age. There is no hydrocephalus. The basilar cisterns are maintained. There is thin pituitary tissue along the floor of the sella turcica. Note made of an occasional subcortical and periventricular white matter T2/FLAIR hyperintense signal in the bilateral cerebral hemispheres. These lesions are nonspecific in appearance and may be seen with accelerated small vessel ischemic disease, vasculopathies, migraine headache, Lyme disease, and residua from inflammatory or traumatic insult to the brain. Current distribution is not classic for demyelination would be included in the differential in the proper clinical scenario. Postcontrast sequences can be obtained as clinically indicated. The bilateral globes are symmetric. Mucosal thickening in the right sphenoid sinus. Trace T2 hyperintense in bilateral mastoid air cells. IMPRESSION: 1. No acute/recent infarction. 2. The scattered white matter T2/FLAIR hyperintense signal in the bilateral cerebral hemispheres are nonspecific and could reflect gliosis, accelerated chronic microvascular ischemic type process and can also be seen in setting of long-term headaches. Request clinical correlation and attention on follow-up. 3. Previous imaging studies are not available for comparison. THIS IS AN ELECTRONICALLY VERIFIED FINAL REPORT 02/09/2025 7:58 AM - Electronically signed by Juliano eVla D.O. AP: DANIELLE Report ID: [id number] Reading Location: [id number] Procedure Note Juliano Vela, DO - 02/09/2025 EXAM DESCRIPTION: MRI BRAIN WO CONTRAST REASON FOR STUDY: chronic migraine Migraines for years, increasing in frequency. Daily headaches now. TECHNIQUE: Multiplanar imaging includes non-contrasted T1, T2, FLAIR, and diffusion with ADC map sequences. Additional sequence(s) sensitive Pl[employer] products. Images stored on PACS. COMPARISON: None available. FINDINGS: There is no diffusion restriction to suggest acute/recent infarction. No parenchymal susceptibility signal to indicate blood degradationproducts. The size and configuration of the ventricles and sulci normal for the patient's age. There is no hydrocephalus. The basilar cisterns are maintained. There is thin pituitary tissue along the floor of the sella turcica. Note made of an occasional subcortical and periventricular white matter T2/FLAIR hyperintense signal in the bilateral cerebral hemispheres. These lesions are nonspecific in appearance and may be seen with acceleratedsmall vessel ischemic disease, vasculopathies, migraine headache, Lyme disease,and residua from inflammatory or traumatic insult to the brain. Current distribution is not classic for demyelination would be included in the differential in the proper clinical scenario. Postcontrast sequences canbe obtained as clinically indicated. The bilateral globes are symmetric. Mucosal thickening in the rightsphenoid sinus. Trace T2 hyperintense in bilateral mastoid air cells. IMPRESSION: 1. No acute/recent infarction. 2. The scattered white matter T2/FLAIR hyperintense signal in thebilateral cerebral hemispheres are nonspecific and could reflect gliosis,accelerated chronic microvascular ischemic type process and can also be seen insetting of long-term headaches. Request clinical correlation and attention onfollow-up. 3. Previous imaging studies are not available for comparison. THIS IS AN ELECTRONICALLY VERIFIED FINAL REPORT 02/09/2025 7:58 AM - Electronically signed by Juliano Vela D.O. AP: AP Report ID: [id number] Reading Location: [id number] us Radha Joya NP IMG MRI PROCEDURES Final R esult * XR Foot Right 2 Views (01/28/2025 10:54 AM CDT) Anatomical Region Laterality Modality Lower Extremities, Foot Right Computed Radiography 01/29/2025 4:02 PM CDT Narrative 01/29/2025 4:07 PM CDT EXAM DESCRIPTION: 1. XR SACROILIAC JOINTS 3 OR MORE VIEWS 2. XR FOOT LEFT 2 VIEWS; 3. XR FOOT RIGHT 2 VIEWS; 4. XR ANKLE LEFT 2 VIEWS; 5. XR ANKLE RIGHT 2 VIEWS; 6. XR WRIST RIGHT 2 VIEWS; 7. XR WRIST LEFT 2 VIEWS; 8. XR HAND LEFT 2 VIEWS 9. XR HAND RIGHT 2 VIEWS REASON FOR STUDY: Bilateral hand and wrist, foot and ankle, and sacroiliac joint pain. RA work-up. Patient currently being treated. Multiple joint pain since pt was 34. H/o left wrist and right hand surgeries FINDINGS: Two views each hand and wrist, two views each foot and ankle, and three views sacroiliac joints submitted without comparison. Left hand/wrist: No erosions. No acute fracture. Ulnar positive variance is present with variant Madelung deformity. The joint spaces are normal. No dorsal wrist soft tissue swelling. Right hand/wrist: No erosions. No acute fracture. Ulnar positive variance is present with variant Madelung deformity. The joint spaces are otherwise normal. 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 No dorsal wrist soft tissue swelling. Sacroiliac joints: No erosions. No acute fracture. The foraminal arcades are intact. The sacroiliac joints are normal. Surgical clips are present. The hip joint space heights are normal. Left foot/ankle: The ankle joint space and mortise are normal. No erosions. Heterotopic ossification beneath the fibula is noted. Plantar heel spur is present. The midfoot and forefoot joint spaces appear normal. Right foot/ankle: No erosions. No acute fracture. The ankle joint space and mortise are normal. The midfoot joint spaces are normal. Mild 1st metatarsophalangeal joint osteoarthritis. Small heel spur. IMPRESSION: 1. No radiographic evidence of inflammatory arthritis. 2. 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 3. 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 THIS IS AN ELECTRONICALLY VERIFIED FINAL REPORT 01/29/2025 4:07 PM - Electronically signed by Frantz Anderson M.D. MF: IVONNE Report ID: [id number] Reading Location: [id number] [id number] Procedure Note Frantz Anderson MD - 01/29/2025 EXAM DESCRIPTION: 1. XR SACROILIAC JOINTS 3 OR MORE VIEWS 2. XR FOOT LEFT 2 VIEWS; 3. XR FOOT RIGHT 2 VIEWS; 4. XR ANKLE LEFT 2 VIEWS; 5. XR ANKLE RIGHT 2 VIEWS; 6. XR WRIST RIGHT 2 VIEWS; 7. XR WRIST LEFT 2 VIEWS; 8. XR HAND LEFT 2 VIEWS 9. XR HAND RIGHT 2 VIEWS REASON FOR STUDY: Bilateral hand and wrist, foot and ankle, and sacroiliac joint pain. RA work-up. Patient currently being treated. Multiple joint pain since ptwas 34. H/o left wrist and right hand surgeries FINDINGS: Two views each hand and wrist, two views each foot and ankle, and threeviews sacroiliac joints submitted without comparison. Left hand/wrist: No erosions. No acute fracture. Ulnar positive variance is present with variant Madelung deformity. The joint spaces are normal. No dorsalwrist soft tissue swelling. Right hand/wrist: No erosions. No acute fracture. Ulnar positive variance is present with variant Madelung deformity. The joint spaces are otherwise normal. Ring finger distal phalanx expansile lytic lesion likely represents anenchondroma. No dorsal wrist soft tissue swelling. Sacroiliac joints: No erosions. No acute fracture. The foraminal arcades are intact. The sacroiliac joints are normal. Surgical clips are present. The hip joint space heights are normal. Left foot/ankle: The ankle joint space and mortise are normal. No erosions. Heterotopic ossification beneath the fibula is noted. Plantar heel spur is present.The midfoot and forefoot joint spaces appear normal. Right foot/ankle: No erosions. No acute fracture. The ankle joint space and mortise are normal. The midfoot joint spaces are normal. Mild 1stmetatarsophalangeal joint osteoarthritis. Small heel spur. IMPRESSION: 1. No radiographic evidence of inflammatory arthritis. 2. 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 3. 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 THIS IS AN ELECTRONICALLY VERIFIED FINAL REPORT 01/29/2025 4:07 PM - Electronically signed by Frantz Anderson M.D. MF: IVONNE Report ID: [id number] Reading Location: [id number] Kai Colin MD IMG XR PROCEDURES Final Res ult * XR Foot Left 2 Views (01/28/2025 10:54 AM CDT) Anatomical Region Laterality Modality Lower Extremities, Foot Left Computed Radiography 01/29/2025 4:0 2 PM CDT Narrative 01/29/2025 4:07 PM CDT EXAM DESCRIPTION: 1. XR SACROILIAC JOINTS 3 OR MORE VIEWS 2. XR FOOT LEFT 2 VIEWS; 3. XR FOOT RIGHT 2 VIEWS; 4. XR ANKLE LEFT 2 VIEWS; 5. XR ANKLE RIGHT 2 VIEWS; 6. XR WRIST RIGHT 2 VIEWS; 7. XR WRIST LEFT 2 VIEWS; 8. XR HAND LEFT 2 VIEWS 9. XR HAND RIGHT 2 VIEWS REASON FOR STUDY: Bilateral hand and wrist, foot and ankle, and sacroiliac joint pain. RA work-up. Patient currently being treated. Multiple joint pain since pt was 34. H/o left wrist and right hand surgeries FINDINGS: Two views each hand and wrist, two views each foot and ankle, and three views sacroiliac joints submitted without comparison. Left hand/wrist: No erosions. No acute fracture. Ulnar positive variance is present with variant Madelung deformity. The joint spaces are normal. No dorsal wrist soft tissue swelling. Right hand/wrist: No erosions. No acute fracture. Ulnar positive variance is present with variant Madelung deformity. The joint spaces are otherwise normal. 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 No dorsal wrist soft tissue swelling. Sacroiliac joints: No erosions. No acute fracture. The foraminal arcades are intact. The sacroiliac joints are normal. Surgical clips are present. The hip joint space heights are normal. Left foot/ankle: The ankle joint space and mortise are normal. No erosions. Heterotopic ossification beneath the fibula is noted. Plantar heel spur is present. The midfoot and forefoot joint spaces appear normal. Right foot/ankle: No erosions. No acute fracture. The ankle joint space and mortise are normal. The midfoot joint spaces are normal. Mild 1st metatarsophalangeal joint osteoarthritis. Small heel spur. IMPRESSION: 1. No radiographic evidence of inflammatory arthritis. 2. 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 3. 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 THIS IS AN ELECTRONICALLY VERIFIED FINAL REPORT 01/29/2025 4:07 PM - Electronically signed by Frantz Anderson M.D. MF: IVONNE Report ID: [id number] Reading Location: [id number] Procedure Note Frantz Anderson MD - 01/29/2025 EXAM DESCRIPTION: 1. XR SACROILIAC JOINTS 3 OR MORE VIEWS 2. XR FOOT LEFT 2 VIEWS; 3. XR FOOT RIGHT 2 VIEWS; 4. XR ANKLE LEFT 2 VIEWS; 5. XR ANKLE RIGHT 2 VIEWS; 6. XR WRIST RIGHT 2 VIEWS; 7. XR WRIST LEFT 2 VIEWS; 8. XR HAND LEFT 2 VIEWS 9. XR HAND RIGHT 2 VIEWS REASON FOR STUDY: Bilateral hand and wrist, foot and ankle, and sacroiliac joint pain. RA work-up. Patient currently being treated. Multiple joint pain since ptwas 34. H/o left wrist and right hand surgeries FINDINGS: Two views each hand and wrist, two views each foot and ankle, and threeviews sacroiliac joints submitted without comparison. Left hand/wrist: No erosions. No acute fracture. Ulnar positive variance is present with variant Madelung deformity. The joint spaces are normal. No dorsalwrist soft tissue swelling. Right hand/wrist: No erosions. No acute fracture. Ulnar positive variance is present with variant Madelung deformity. The joint spaces are otherwise normal. Ring finger distal phalanx expansile lytic lesion likely represents anenchondroma. No dorsal wrist soft tissue swelling. Sacroiliac joints: No erosions. No acute fracture. The foraminal arcades are intact. The sacroiliac joints are normal. Surgical clips are present. The hip joint space heights are normal. Left foot/ankle: The ankle joint space and mortise are normal. No erosions. Heterotopic ossification beneath the fibula is noted. Plantar heel spur is present.The midfoot and forefoot joint spaces appear normal. Right foot/ankle: No erosions. No acute fracture. The ankle joint space and mortise are normal. The midfoot joint spaces are normal. Mild 1stmetatarsophalangeal joint osteoarthritis. Small heel spur. IMPRESSION: 1. No radiographic evidence of inflammatory arthritis. 2. 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 3. 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 THIS IS AN ELECTRONICALLY VERIFIED FINAL REPORT 01/29/2025 4:07 PM - Electronically signed by Frantz Anderson M.D. MF: IVONNE Report ID: [id number] Reading Location: [id number] us Kai Colin MD IMG XR PROCEDURES Final Res ult * XR Ankle Right 2 Views (01/28/2025 10:54 AM CDT) Anatomical Region Laterality Modality Lower Extremities, Ankle Right Compute d Radiography 01/29/2025 4:02 PM CDT Narrative 01/29/2025 4:07 PM CDT EXAM DESCRIPTION: 1. XR SACROILIAC JOINTS 3 OR MORE VIEWS 2. XR FOOT LEFT 2 VIEWS; 3. XR FOOT RIGHT 2 VIEWS; 4. XR ANKLE LEFT 2 VIEWS; 5. XR ANKLE RIGHT 2 VIEWS; 6. XR WRIST RIGHT 2 VIEWS; 7. XR WRIST LEFT 2 VIEWS; 8. XR HAND LEFT 2 VIEWS 9. XR HAND RIGHT 2 VIEWS REASON FOR STUDY: Bilateral hand and wrist, foot and ankle, and sacroiliac joint pain. RA work-up. Patient currently being treated. Multiple joint pain since pt was 34. H/o left wrist and right hand surgeries FINDINGS: Two views each hand and wrist, two views each foot and ankle, and three views sacroiliac joints submitted without comparison. Left hand/wrist: No erosions. No acute fracture. Ulnar positive variance is present with variant Madelung deformity. The joint spaces are normal. No dorsal wrist soft tissue swelling. Right hand/wrist: No erosions. No acute fracture. Ulnar positive variance is present with variant Madelung deformity. The joint spaces are otherwise normal. 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 No dorsal wrist soft tissue swelling. Sacroiliac joints: No erosions. No acute fracture. The foraminal arcades are intact. The sacroiliac joints are normal. Surgical clips are present. The hip joint space heights are normal. Left foot/ankle: The ankle joint space and mortise are normal. No erosions. Heterotopic ossification beneath the fibula is noted. Plantar heel spur is present. The midfoot and forefoot joint spaces appear normal. Right foot/ankle: No erosions. No acute fracture. The ankle joint space and mortise are normal. The midfoot joint spaces are normal. Mild 1st metatarsophalangeal joint osteoarthritis. Small heel spur. IMPRESSION: 1. No radiographic evidence of inflammatory arthritis. 2. 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 3. 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 THIS IS AN ELECTRONICALLY VERIFIED FINAL REPORT 01/29/2025 4:07 PM - Electronically signed by Frantz Anderson M.D. MF: IVONNE Report ID: [id number] Reading Location: [id number] Procedure Note Frantz Anderson MD - 01/29/2025 EXAM DESCRIPTION: 1. XR SACROILIAC JOINTS 3 OR MORE VIEWS 2. XR FOOT LEFT 2 VIEWS; 3. XR FOOT RIGHT 2 VIEWS; 4. XR ANKLE LEFT 2 VIEWS; 5. XR ANKLE RIGHT 2 VIEWS; 6. XR WRIST RIGHT 2 VIEWS; 7. XR WRIST LEFT 2 VIEWS; 8. XR HAND LEFT 2 VIEWS 9. XR HAND RIGHT 2 VIEWS REASON FOR STUDY: Bilateral hand and wrist, foot and ankle, and sacroiliac joint pain. RA work-up. Patient currently being treated. Multiple joint pain since ptwas 34. H/o left wrist and right hand surgeries FINDINGS: Two views each hand and wrist, two views each foot and ankle, and threeviews sacroiliac joints submitted without comparison. Left hand/wrist: No erosions. No acute fracture. Ulnar positive variance is present with variant Madelung deformity. The joint spaces are normal. No dorsalwrist soft tissue swelling. Right hand/wrist: No erosions. No acute fracture. Ulnar positive variance is present with variant Madelung deformity. The joint spaces are otherwise normal. Ring finger distal phalanx expansile lytic lesion likely represents anenchondroma. No dorsal wrist soft tissue swelling. Sacroiliac joints: No erosions. No acute fracture. The foraminal arcades are intact. The sacroiliac joints are normal. Surgical clips are present. The hip joint space heights are normal. Left foot/ankle: The ankle joint space and mortise are normal. No erosions. Heterotopic ossification beneath the fibula is noted. Plantar heel spur is present.The midfoot and forefoot joint spaces appear normal. Right foot/ankle: No erosions. No acute fracture. The ankle joint space and mortise are normal. The midfoot joint spaces are normal. Mild 1stmetatarsophalangeal joint osteoarthritis. Small heel spur. IMPRESSION: 1. No radiographic evidence of inflammatory arthritis. 2. 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 3. 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 THIS IS AN ELECTRONICALLY VERIFIED FINAL REPORT 01/29/2025 4:07 PM - Electronically signed by Franzt Anderson M.D. MF: IVONNE Report ID: [id number] Reading Location: [id number] Kai Colin MD IMG XR PROCEDURES Final Res ult * XR Ankle Left 2 Views (01/28/2025 10:54 AM CDT) Anatomical Region Laterality Modality Lower Extremities, Ankle Left Compute d Radiography 01/29/2025 4:02 PM CDT Narrative 01/29/2025 4:07 PM CDT EXAM DESCRIPTION: 1. XR SACROILIAC JOINTS 3 OR MORE VIEWS 2. XR FOOT LEFT 2 VIEWS; 3. XR FOOT RIGHT 2 VIEWS; 4. XR ANKLE LEFT 2 VIEWS; 5. XR ANKLE RIGHT 2 VIEWS; 6. XR WRIST RIGHT 2 VIEWS; 7. XR WRIST LEFT 2 VIEWS; 8. XR HAND LEFT 2 VIEWS 9. XR HAND RIGHT 2 VIEWS REASON FOR STUDY: Bilateral hand and wrist, foot and ankle, and sacroiliac joint pain. RA work-up. Patient currently being treated. Multiple joint pain since pt was 34. H/o left wrist and right hand surgeries FINDINGS: Two views each hand and wrist, two views each foot and ankle, and three views sacroiliac joints submitted without comparison. Left hand/wrist: No erosions. No acute fracture. Ulnar positive variance is present with variant Madelung deformity. The joint spaces are normal. No dorsal wrist soft tissue swelling. Right hand/wrist: No erosions. No acute fracture. Ulnar positive variance is present with variant Madelung deformity. The joint spaces are otherwise normal. 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 No dorsal wrist soft tissue swelling. Sacroiliac joints: No erosions. No acute fracture. The foraminal arcades are intact. The sacroiliac joints are normal. Surgical clips are present. The hip joint space heights are normal. Left foot/ankle: The ankle joint space and mortise are normal. No erosions. Heterotopic ossification beneath the fibula is noted. Plantar heel spur is present. The midfoot and forefoot joint spaces appear normal. Right foot/ankle: No erosions. No acute fracture. The ankle joint space and mortise are normal. The midfoot joint spaces are normal. Mild 1st metatarsophalangeal joint osteoarthritis. Small heel spur. IMPRESSION: 1. No radiographic evidence of inflammatory arthritis. 2. 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 3. 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 THIS IS AN ELECTRONICALLY VERIFIED FINAL REPORT 01/29/2025 4:07 PM - Electronically signed by Frantz Anderson M.D. MF: IVONNE Report ID: [id number] Reading Location: [id number] Procedure Note Frantz Anderson MD - 01/29/2025 EXAM DESCRIPTION: 1. XR SACROILIAC JOINTS 3 OR MORE VIEWS 2. XR FOOT LEFT 2 VIEWS; 3. XR FOOT RIGHT 2 VIEWS; 4. XR ANKLE LEFT 2 VIEWS; 5. XR ANKLE RIGHT 2 VIEWS; 6. XR WRIST RIGHT 2 VIEWS; 7. XR WRIST LEFT 2 VIEWS; 8. XR HAND LEFT 2 VIEWS 9. XR HAND RIGHT 2 VIEWS REASON FOR STUDY: Bilateral hand and wrist, foot and ankle, and sacroiliac joint pain. RA work-up. Patient currently being treated. Multiple joint pain since ptwas 34. H/o left wrist and right hand surgeries FINDINGS: Two views each hand and wrist, two views each foot and ankle, and threeviews sacroiliac joints submitted without comparison. Left hand/wrist: No erosions. No acute fracture. Ulnar positive variance is present with variant Madelung deformity. The joint spaces are normal. No dorsalwrist soft tissue swelling. Right hand/wrist: No erosions. No acute fracture. Ulnar positive variance is present with variant Madelung deformity. The joint spaces are otherwise normal. Ring finger distal phalanx expansile lytic lesion likely represents anenchondroma. No dorsal wrist soft tissue swelling. Sacroiliac joints: No erosions. No acute fracture. The foraminal arcades are intact. The sacroiliac joints are normal. Surgical clips are present. The hip joint space heights are normal. Left foot/ankle: The ankle joint space and mortise are normal. No erosions. Heterotopic ossification beneath the fibula is noted. Plantar heel spur is present.The midfoot and forefoot joint spaces appear normal. Right foot/ankle: No erosions. No acute fracture. The ankle joint space and mortise are normal. The midfoot joint spaces are normal. Mild 1stmetatarsophalangeal joint osteoarthritis. Small heel spur. IMPRESSION: 1. No radiographic evidence of inflammatory arthritis. 2. 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 3. 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 THIS IS AN ELECTRONICALLY VERIFIED FINAL REPORT 01/29/2025 4:07 PM - Electronically signed by Frantz Anderson M.D. MF: IVONNE Report ID: [id number] Reading Location: [id number] us Kai Colin MD IMG XR PROCEDURES Final Res ult * XR Hand Right 2 Views (01/28/2025 10:54 AM CDT) Anatomical Region Laterality Modality Upper Extremities, Hand Right Computed Radiography 01/29/2025 4:02 PM CDT Narrative 01/29/2025 4:07 PM CDT EXAM DESCRIPTION: 1. XR SACROILIAC JOINTS 3 OR MORE VIEWS 2. XR FOOT LEFT 2 VIEWS; 3. XR FOOT RIGHT 2 VIEWS; 4. XR ANKLE LEFT 2 VIEWS; 5. XR ANKLE RIGHT 2 VIEWS; 6. XR WRIST RIGHT 2 VIEWS; 7. XR WRIST LEFT 2 VIEWS; 8. XR HAND LEFT 2 VIEWS 9. XR HAND RIGHT 2 VIEWS REASON FOR STUDY: Bilateral hand and wrist, foot and ankle, and sacroiliac joint pain. RA work-up. Patient currently being treated. Multiple joint pain since pt was 34. H/o left wrist and right hand surgeries FINDINGS: Two views each hand and wrist, two views each foot and ankle, and three views sacroiliac joints submitted without comparison. Left hand/wrist: No erosions. No acute fracture. Ulnar positive variance is present with variant Madelung deformity. The joint spaces are normal. No dorsal wrist soft tissue swelling. Right hand/wrist: No erosions. No acute fracture. Ulnar positive variance is present with variant Madelung deformity. The joint spaces are otherwise normal. 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 No dorsal wrist soft tissue swelling. Sacroiliac joints: No erosions. No acute fracture. The foraminal arcades are intact. The sacroiliac joints are normal. Surgical clips are present. The hip joint space heights are normal. Left foot/ankle: The ankle joint space and mortise are normal. No erosions. Heterotopic ossification beneath the fibula is noted. Plantar heel spur is present. The midfoot and forefoot joint spaces appear normal. Right foot/ankle: No erosions. No acute fracture. The ankle joint space and mortise are normal. The midfoot joint spaces are normal. Mild 1st metatarsophalangeal joint osteoarthritis. Small heel spur. IMPRESSION: 1. No radiographic evidence of inflammatory arthritis. 2. 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 3. 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 THIS IS AN ELECTRONICALLY VERIFIED FINAL REPORT 01/29/2025 4:07 PM - Electronically signed by Frantz Anderson M.D. MF: IVONNE Report ID: [id number] Reading Location: [id number] Procedure Note Frantz Anderson MD - 01/29/2025 EXAM DESCRIPTION: 1. XR SACROILIAC JOINTS 3 OR MORE VIEWS 2. XR FOOT LEFT 2 VIEWS; 3. XR FOOT RIGHT 2 VIEWS; 4. XR ANKLE LEFT 2 VIEWS; 5. XR ANKLE RIGHT 2 VIEWS; 6. XR WRIST RIGHT 2 VIEWS; 7. XR WRIST LEFT 2 VIEWS; 8. XR HAND LEFT 2 VIEWS 9. XR HAND RIGHT 2 VIEWS REASON FOR STUDY: Bilateral hand and wrist, foot and ankle, and sacroiliac joint pain. RA work-up. Patient currently being treated. Multiple joint pain since ptwas 34. H/o left wrist and right hand surgeries FINDINGS: Two views each hand and wrist, two views each foot and ankle, and threeviews sacroiliac joints submitted without comparison. Left hand/wrist: No erosions. No acute fracture. Ulnar positive variance is present with variant Madelung deformity. The joint spaces are normal. No dorsalwrist soft tissue swelling. Right hand/wrist: No erosions. No acute fracture. Ulnar positive variance is present with variant Madelung deformity. The joint spaces are otherwise normal. Ring finger distal phalanx expansile lytic lesion likely represents anenchondroma. No dorsal wrist soft tissue swelling. Sacroiliac joints: No erosions. No acute fracture. The foraminal arcades are intact. The sacroiliac joints are normal. Surgical clips are present. The hip joint space heights are normal. Left foot/ankle: The ankle joint space and mortise are normal. No erosions. Heterotopic ossification beneath the fibula is noted. Plantar heel spur is present.The midfoot and forefoot joint spaces appear normal. Right foot/ankle: No erosions. No acute fracture. The ankle joint space and mortise are normal. The midfoot joint spaces are normal. Mild 1stmetatarsophalangeal joint osteoarthritis. Small heel spur. IMPRESSION: 1. No radiographic evidence of inflammatory arthritis. 2. 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 3. 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 THIS IS AN ELECTRONICALLY VERIFIED FINAL REPORT 01/29/2025 4:07 PM - Electronically signed by Frantz Anderson M.D. MF: IVONNE Report ID: [id number] Reading Location: [id number] Kai Colin MD IMG XR PROCEDURES Final Res ult * XR Hand Left 2 Views (01/28/2025 10:54 AM CDT) Anatomical Region Laterality Modality Upper Extremities, Hand Left Computed Radiography 01/29/2025 4:02 PM CDT Narrative 01/29/2025 4:07 PM CDT EXAM DESCRIPTION: 1. XR SACROILIAC JOINTS 3 OR MORE VIEWS 2. XR FOOT LEFT 2 VIEWS; 3. XR FOOT RIGHT 2 VIEWS; 4. XR ANKLE LEFT 2 VIEWS; 5. XR ANKLE RIGHT 2 VIEWS; 6. XR WRIST RIGHT 2 VIEWS; 7. XR WRIST LEFT 2 VIEWS; 8. XR HAND LEFT 2 VIEWS 9. XR HAND RIGHT 2 VIEWS REASON FOR STUDY: Bilateral hand and wrist, foot and ankle, and sacroiliac joint pain. RA work-up. Patient currently being treated. Multiple joint pain since pt was 34. H/o left wrist and right hand surgeries FINDINGS: Two views each hand and wrist, two views each foot and ankle, and three views sacroiliac joints submitted without comparison. Left hand/wrist: No erosions. No acute fracture. Ulnar positive variance is present with variant Madelung deformity. The joint spaces are normal. No dorsal wrist soft tissue swelling. Right hand/wrist: No erosions. No acute fracture. Ulnar positive variance is present with variant Madelung deformity. The joint spaces are otherwise normal. 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 No dorsal wrist soft tissue swelling. Sacroiliac joints: No erosions. No acute fracture. The foraminal arcades are intact. The sacroiliac joints are normal. Surgical clips are present. The hip joint space heights are normal. Left foot/ankle: The ankle joint space and mortise are normal. No erosions. Heterotopic ossification beneath the fibula is noted. Plantar heel spur is present. The midfoot and forefoot joint spaces appear normal. Right foot/ankle: No erosions. No acute fracture. The ankle joint space and mortise are normal. The midfoot joint spaces are normal. Mild 1st metatarsophalangeal joint osteoarthritis. Small heel spur. IMPRESSION: 1. No radiographic evidence of inflammatory arthritis. 2. 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 3. 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 THIS IS AN ELECTRONICALLY VERIFIED FINAL REPORT 01/29/2025 4:07 PM - Electronically signed by Frantz Anderson M.D. MF: IVONNE Report ID: [id number] Reading Location: [id number] Procedure Note Frantz Anderson MD - 01/29/2025 EXAM DESCRIPTION: 1. XR SACROILIAC JOINTS 3 OR MORE VIEWS 2. XR FOOT LEFT 2 VIEWS; 3. XR FOOT RIGHT 2 VIEWS; 4. XR ANKLE LEFT 2 VIEWS; 5. XR ANKLE RIGHT 2 VIEWS; 6. XR WRIST RIGHT 2 VIEWS; 7. XR WRIST LEFT 2 VIEWS; 8. XR HAND LEFT 2 VIEWS 9. XR HAND RIGHT 2 VIEWS REASON FOR STUDY: Bilateral hand and wrist, foot and ankle, and sacroiliac joint pain. RA work-up. Patient currently being treated. Multiple joint pain since ptwas 34. H/o left wrist and right hand surgeries FINDINGS: Two views each hand and wrist, two views each foot and ankle, and threeviews sacroiliac joints submitted without comparison. Left hand/wrist: No erosions. No acute fracture. Ulnar positive variance is present with variant Madelung deformity. The joint spaces are normal. No dorsalwrist soft tissue swelling. Right hand/wrist: No erosions. No acute fracture. Ulnar positive variance is present with variant Madelung deformity. The joint spaces are otherwise normal. Ring finger distal phalanx expansile lytic lesion likely represents anenchondroma. No dorsal wrist soft tissue swelling. Sacroiliac joints: No erosions. No acute fracture. The foraminal arcades are intact. The sacroiliac joints are normal. Surgical clips are present. The hip joint space heights are normal. Left foot/ankle: The ankle joint space and mortise are normal. No erosions. Heterotopic ossification beneath the fibula is noted. Plantar heel spur is present.The midfoot and forefoot joint spaces appear normal. Right foot/ankle: No erosions. No acute fracture. The ankle joint space and mortise are normal. The midfoot joint spaces are normal. Mild 1stmetatarsophalangeal joint osteoarthritis. Small heel spur. IMPRESSION: 1. No radiographic evidence of inflammatory arthritis. 2. 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 3. 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 THIS IS AN ELECTRONICALLY VERIFIED FINAL REPORT 01/29/2025 4:07 PM - Electronically signed by Frantz Anderson M.D. MF: IVONNE Report ID: [id number] Reading Location: [id number] us Kai Colin MD IMG XR PROCEDURES Final Res ult * XR Wrist Right 2 Views (01/28/2025 10:54 AM CDT) Anatomical Region Laterality Modality Upper Extremities, Wrist Right Compute d Radiography 01/29/2025 4:02 PM CDT Narrative 01/29/2025 4:07 PM CDT EXAM DESCRIPTION: 1. XR SACROILIAC JOINTS 3 OR MORE VIEWS 2. XR FOOT LEFT 2 VIEWS; 3. XR FOOT RIGHT 2 VIEWS; 4. XR ANKLE LEFT 2 VIEWS; 5. XR ANKLE RIGHT 2 VIEWS; 6. XR WRIST RIGHT 2 VIEWS; 7. XR WRIST LEFT 2 VIEWS; 8. XR HAND LEFT 2 VIEWS 9. XR HAND RIGHT 2 VIEWS REASON FOR STUDY: Bilateral hand and wrist, foot and ankle, and sacroiliac joint pain. RA work-up. Patient currently being treated. Multiple joint pain since pt was 34. H/o left wrist and right hand surgeries FINDINGS: Two views each hand and wrist, two views each foot and ankle, and three views sacroiliac joints submitted without comparison. Left hand/wrist: No erosions. No acute fracture. Ulnar positive variance is present with variant Madelung deformity. The joint spaces are normal. No dorsal wrist soft tissue swelling. Right hand/wrist: No erosions. No acute fracture. Ulnar positive variance is present with variant Madelung deformity. The joint spaces are otherwise normal. 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 No dorsal wrist soft tissue swelling. Sacroiliac joints: No erosions. No acute fracture. The foraminal arcades are intact. The sacroiliac joints are normal. Surgical clips are present. The hip joint space heights are normal. Left foot/ankle: The ankle joint space and mortise are normal. No erosions. Heterotopic ossification beneath the fibula is noted. Plantar heel spur is present. The midfoot and forefoot joint spaces appear normal. Right foot/ankle: No erosions. No acute fracture. The ankle joint space and mortise are normal. The midfoot joint spaces are normal. Mild 1st metatarsophalangeal joint osteoarthritis. Small heel spur. IMPRESSION: 1. No radiographic evidence of inflammatory arthritis. 2. 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 3. 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 THIS IS AN ELECTRONICALLY VERIFIED FINAL REPORT 01/29/2025 4:07 PM - Electronically signed by Frantz Anderson M.D. MF: IVONNE Report ID: [id number] Reading Location: [id number] Procedure Note Frantz Anderson MD - 01/29/2025 EXAM DESCRIPTION: 1. XR SACROILIAC JOINTS 3 OR MORE VIEWS 2. XR FOOT LEFT 2 VIEWS; 3. XR FOOT RIGHT 2 VIEWS; 4. XR ANKLE LEFT 2 VIEWS; 5. XR ANKLE RIGHT 2 VIEWS; 6. XR WRIST RIGHT 2 VIEWS; 7. XR WRIST LEFT 2 VIEWS; 8. XR HAND LEFT 2 VIEWS 9. XR HAND RIGHT 2 VIEWS REASON FOR STUDY: Bilateral hand and wrist, foot and ankle, and sacroiliac joint pain. RA work-up. Patient currently being treated. Multiple joint pain since ptwas 34. H/o left wrist and right hand surgeries FINDINGS: Two views each hand and wrist, two views each foot and ankle, and threeviews sacroiliac joints submitted without comparison. Left hand/wrist: No erosions. No acute fracture. Ulnar positive variance is present with variant Madelung deformity. The joint spaces are normal. No dorsalwrist soft tissue swelling. Right hand/wrist: No erosions. No acute fracture. Ulnar positive variance is present with variant Madelung deformity. The joint spaces are otherwise normal. Ring finger distal phalanx expansile lytic lesion likely represents anenchondroma. No dorsal wrist soft tissue swelling. Sacroiliac joints: No erosions. No acute fracture. The foraminal arcades are intact. The sacroiliac joints are normal. Surgical clips are present. The hip joint space heights are normal. Left foot/ankle: The ankle joint space and mortise are normal. No erosions. Heterotopic ossification beneath the fibula is noted. Plantar heel spur is present.The midfoot and forefoot joint spaces appear normal. Right foot/ankle: No erosions. No acute fracture. The ankle joint space and mortise are normal. The midfoot joint spaces are normal. Mild 1stmetatarsophalangeal joint osteoarthritis. Small heel spur. IMPRESSION: 1. No radiographic evidence of inflammatory arthritis. 2. 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 3. 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 THIS IS AN ELECTRONICALLY VERIFIED FINAL REPORT 01/29/2025 4:07 PM - Electronically signed by Frantz Anderson M.D. MF: IVONNE Report ID: [id number] Reading Location: [place] [id number] Kai Colin MD IMG XR PROCEDURES Final Res ult * XR Wrist Left 2 Views (01/28/2025 10:54 AM CDT) Anatomical Region Laterality Modality Upper Extremities, Wrist Left Compute d Radiography 01/29/2025 4:02 PM CDT Narrative 01/29/2025 4:07 PM CDT EXAM DESCRIPTION: 1. XR SACROILIAC JOINTS 3 OR MORE VIEWS 2. XR FOOT LEFT 2 VIEWS; 3. XR FOOT RIGHT 2 VIEWS; 4. XR ANKLE LEFT 2 VIEWS; 5. XR ANKLE RIGHT 2 VIEWS; 6. XR WRIST RIGHT 2 VIEWS; 7. XR WRIST LEFT 2 VIEWS; 8. XR HAND LEFT 2 VIEWS 9. XR HAND RIGHT 2 VIEWS REASON FOR STUDY: Bilateral hand and wrist, foot and ankle, and sacroiliac joint pain. RA work-up. Patient currently being treated. Multiple joint pain since pt was 34. H/o left wrist and right hand surgeries FINDINGS: Two views each hand and wrist, two views each foot and ankle, and three views sacroiliac joints submitted without comparison. Left hand/wrist: No erosions. No acute fracture. Ulnar positive variance is present with variant Madelung deformity. The joint spaces are normal. No dorsal wrist soft tissue swelling. Right hand/wrist: No erosions. No acute fracture. Ulnar positive variance is present with variant Madelung deformity. The joint spaces are otherwise normal. 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 No dorsal wrist soft tissue swelling. Sacroiliac joints: No erosions. No acute fracture. The foraminal arcades are intact. The sacroiliac joints are normal. Surgical clips are present. The hip joint space heights are normal. Left foot/ankle: The ankle joint space and mortise are normal. No erosions. Heterotopic ossification beneath the fibula is noted. Plantar heel spur is present. The midfoot and forefoot joint spaces appear normal. Right foot/ankle: No erosions. No acute fracture. The ankle joint space and mortise are normal. The midfoot joint spaces are normal. Mild 1st metatarsophalangeal joint osteoarthritis. Small heel spur. IMPRESSION: 1. No radiographic evidence of inflammatory arthritis. 2. 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 3. 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 THIS IS AN ELECTRONICALLY VERIFIED FINAL REPORT 01/29/2025 4:07 PM - Electronically signed by Frantz Anderson M.D. MF: IVONNE Report ID: [id number] Reading Location: [id number] Procedure Note Frantz Anderson MD - 01/29/2025 EXAM DESCRIPTION: 1. XR SACROILIAC JOINTS 3 OR MORE VIEWS 2. XR FOOT LEFT 2 VIEWS; 3. XR FOOT RIGHT 2 VIEWS; 4. XR ANKLE LEFT 2 VIEWS; 5. XR ANKLE RIGHT 2 VIEWS; 6. XR WRIST RIGHT 2 VIEWS; 7. XR WRIST LEFT 2 VIEWS; 8. XR HAND LEFT 2 VIEWS 9. XR HAND RIGHT 2 VIEWS REASON FOR STUDY: Bilateral hand and wrist, foot and ankle, and sacroiliac joint pain. RA work-up. Patient currently being treated. Multiple joint pain since ptwas 34. H/o left wrist and right hand surgeries FINDINGS: Two views each hand and wrist, two views each foot and ankle, and threeviews sacroiliac joints submitted without comparison. Left hand/wrist: No erosions. No acute fracture. Ulnar positive variance is present with variant Madelung deformity. The joint spaces are normal. No dorsalwrist soft tissue swelling. Right hand/wrist: No erosions. No acute fracture. Ulnar positive variance is present with variant Madelung deformity. The joint spaces are otherwise normal. Ring finger distal phalanx expansile lytic lesion likely represents anenchondroma. No dorsal wrist soft tissue swelling. Sacroiliac joints: No erosions. No acute fracture. The foraminal arcades are intact. The sacroiliac joints are normal. Surgical clips are present. The hip joint space heights are normal. Left foot/ankle: The ankle joint space and mortise are normal. No erosions. Heterotopic ossification beneath the fibula is noted. Plantar heel spur is present.The midfoot and forefoot joint spaces appear normal. Right foot/ankle: No erosions. No acute fracture. The ankle joint space and mortise are normal. The midfoot joint spaces are normal. Mild 1stmetatarsophalangeal joint osteoarthritis. Small heel spur. IMPRESSION: 1. No radiographic evidence of inflammatory arthritis. 2. 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 3. 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 THIS IS AN ELECTRONICALLY VERIFIED FINAL REPORT 01/29/2025 4:07 PM - Electronically signed by Frantz Anderson M.D. MF: IVONNE Report ID: [id number] Reading Location: [place] [address] Kai Colin MD IMG XR PROCEDURES Final Res ult * XR Sacroiliac Joints 3 or More Views (01/28/2025 10:54 AM CDT) Anatomical Region Laterality Modality Pelvis, Body N/A Computed Radiogr aphy 01/29/2025 4:02 PM CDT Narrative 01/29/2025 4:07 PM CDT EXAM DESCRIPTION: 1. XR SACROILIAC JOINTS 3 OR MORE VIEWS 2. XR FOOT LEFT 2 VIEWS; 3. XR FOOT RIGHT 2 VIEWS; 4. XR ANKLE LEFT 2 VIEWS; 5. XR ANKLE RIGHT 2 VIEWS; 6. XR WRIST RIGHT 2 VIEWS; 7. XR WRIST LEFT 2 VIEWS; 8. XR HAND LEFT 2 VIEWS 9. XR HAND RIGHT 2 VIEWS REASON FOR STUDY: Bilateral hand and wrist, foot and ankle, and sacroiliac joint pain. RA work-up. Patient currently being treated. Multiple joint pain since pt was 34. H/o left wrist and right hand surgeries FINDINGS: Two views each hand and wrist, two views each foot and ankle, and three views sacroiliac joints submitted without comparison. Left hand/wrist: No erosions. No acute fracture. Ulnar positive variance is present with variant Madelung deformity. The joint spaces are normal. No dorsal wrist soft tissue swelling. Right hand/wrist: No erosions. No acute fracture. Ulnar positive variance is present with variant Madelung deformity. The joint spaces are otherwise normal. 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 No dorsal wrist soft tissue swelling. Sacroiliac joints: No erosions. No acute fracture. The foraminal arcades are intact. The sacroiliac joints are normal. Surgical clips are present. The hip joint space heights are normal. Left foot/ankle: The ankle joint space and mortise are normal. No erosions. Heterotopic ossification beneath the fibula is noted. Plantar heel spur is present. The midfoot and forefoot joint spaces appear normal. Right foot/ankle: No erosions. No acute fracture. The ankle joint space and mortise are normal. The midfoot joint spaces are normal. Mild 1st metatarsophalangeal joint osteoarthritis. Small heel spur. IMPRESSION: 1. No radiographic evidence of inflammatory arthritis. 2. 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 3. 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 THIS IS AN ELECTRONICALLY VERIFIED FINAL REPORT 01/29/2025 4:07 PM - Electronically signed by Frantz Anderson M.D. MF: IVONNE Report ID: [id number] Reading Location: [place] [address] Procedure Note Frantz Anderson MD - 01/29/2025 EXAM DESCRIPTION: 1. XR SACROILIAC JOINTS 3 OR MORE VIEWS 2. XR FOOT LEFT 2 VIEWS; 3. XR FOOT RIGHT 2 VIEWS; 4. XR ANKLE LEFT 2 VIEWS; 5. XR ANKLE RIGHT 2 VIEWS; 6. XR WRIST RIGHT 2 VIEWS; 7. XR WRIST LEFT 2 VIEWS; 8. XR HAND LEFT 2 VIEWS 9. XR HAND RIGHT 2 VIEWS REASON FOR STUDY: Bilateral hand and wrist, foot and ankle, and sacroiliac joint pain. RA work-up. Patient currently being treated. Multiple joint pain since ptwas 34. H/o left wrist and right hand surgeries FINDINGS: Two views each hand and wrist, two views each foot and ankle, and threeviews sacroiliac joints submitted without comparison. Left hand/wrist: No erosions. No acute fracture. Ulnar positive variance is present with variant Madelung deformity. The joint spaces are normal. No dorsalwrist soft tissue swelling. Right hand/wrist: No erosions. No acute fracture. Ulnar positive variance is present with variant Madelung deformity. The joint spaces are otherwise normal. Ring finger distal phalanx expansile lytic lesion likely represents anenchondroma. No dorsal wrist soft tissue swelling. Sacroiliac joints: No erosions. No acute fracture. The foraminal arcades are intact. The sacroiliac joints are normal. Surgical clips are present. The hip joint space heights are normal. Left foot/ankle: The ankle joint space and mortise are normal. No erosions. Heterotopic ossification beneath the fibula is noted. Plantar heel spur is present.The midfoot and forefoot joint spaces appear normal. Right foot/ankle: No erosions. No acute fracture. The ankle joint space and mortise are normal. The midfoot joint spaces are normal. Mild 1stmetatarsophalangeal joint osteoarthritis. Small heel spur. IMPRESSION: 1. No radiographic evidence of inflammatory arthritis. 2. 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 3. 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 THIS IS AN ELECTRONICALLY VERIFIED FINAL REPORT 01/29/2025 4:07 PM - Electronically signed by Frantz Anderson M.D. MF: IVONNE Report ID: [id number] Reading Location: [place] [address] Kai Colin MD IMG XR PROCEDURES Final Res ult from Last 3 Months Insurance [facility] [employer] OOS Care Teams Facility Manager Histology Relationship Specialty Start Date End Date Julianne De La Torre DO [address] [place] [address] [place] [address] PCP - General Family Medicine 02/02/25
--- OUTSIDE RECORDS SUMMARY | 2025-02-12 07:33 | XMS_ITS | Patient Health Record ---
Author Organization [facility] As [employer] Address [address] [facility] [address] [place] [address] Care Team Providers Care Molder Feeder Name Role Phone Grantsilvanosteve Sahara WEBSTERna Primary Care Provider Unavailab Nette Cherry Unavailable [phone] Reza Villarreal Unavailable [phone] Rocio Thena Unavailable [phone] Allergies Allergen (clinical drug ingredient) Drug/Non Drug Allergy documented on EMR Reaction Allergy Type Onset Date Status lamotrigine LaMICtal flu like symtopms Drug Allergy Active methotrexate Methotrexate blisters Drug Allergy A ctive Results Component Value Reference Range Flag Notes UDT Reviewed date:06/29/2024 06:01:18 PM Interpretation: Performing Lab: Notes/Report: THC N 0 - 50 ng/ml Cocaine N 0 - 300 ng/ml Amphetamine N 0 - 1000 ng/ml Buprenorphine (BUP) N 0 - 10 ng/ml Secobarbital (Bar) N 0 - 300 ng/ml Oxazepam (BZO) N 0 - 300 ng/ml 5-abjgxfoysq-4,5-mgiifxla-8, 3-di phenylpyrrolidine (EDDP) N 0 - 300 ng/ml Methamphetamine (MET) N 0 - 1000 ng/ml Methylenedioxymethamphetamin e (MDMA) N 0 - 500 ng/ml Morphine (MOP 300/[id number]) N 0 - 3 00 ng/ml Methadone (MTD) N 0 - 300 ng/ml Phencyclidine (PCP) N 0 - 25 ng/ml Nortriptyline (TCA) N 0 - 1000 ng/ml Oxycodone N 0 - 300 ng/ml x N 0 - 300 ng/ml PRESCRIBED DRUGS, medMATCH(R ) ([id number]) Reviewed date:11/05/2024 08:17:06 AM Interpretation: Performing Lab:LEON [facility]Doe[facility]p[address] Bianca Sreedhar, [id number] Peg Lima MD Notes/Report: FASTING: NO medMATCH Summary Prescribed Prescribed Not Prescribed Consistent Inconsistent Inconsistent Tramadol Prescribed no testing ordered: Methylphenidate Prescribed Drug 1 Methylphenidate Prescribed Drug 2 Tramadol DRUG MONITOR, TRAMADOL, QN, URINE ([id number]) Reviewed date:11/05/2024 08:16:45 AM Interpretation: Performing Lab:Tadeo [facility]-[place] [address] [place] Don Gleason, Director - [address] Bianca Trendrating[facility]-[place] Notes/Report: FASTING: NO Desmethyltramadol >00158 <100 ng/mL H medMATCH Desmethyltram CONSISTENT Tramadol >43828 <100 ng/mL H medMATCH Tramadol CONSISTENT Tramadol Comments See Tra macho Notes, LDT Notes Notes and Comments This drug testing is for medical treatment only. Analysis was performed as non-forensic testing and these results should be used only by healthcare providers to render diagnosis or treatment, or to monitor progress of medical conditions. Tramadol Notes: Tramadol, Desmethyltramadol detected is consistent with the use of the drug Tramadol. LDT Notes: Confirmation tests were developed and their analytical performance characteristics have been determined by [facility]. It has not been cleared or approved by the FDA. This assay has been validated pursuant to the CLIA regulations and is used for clinical purposes. medMATCH(R) enables providers to identify if drug use is consistent or inconsistent with a corresponding prescribed medication(s) list. Healthcare Providers needing Interpretation assistance, please contact us at [phone] ( ) M-F, 8am to 10pm EST DRUG MONITOR, BUP AND NALOXO NE,QN,URINE ([id number]) Reviewed date:11/05/2024 08:16:56 AM Interpretation: Performing Lab:KEMAL [facility] [address] [facility], [place] [id number] Don Gleason Notes/Report: FASTING: NO Buprenorphine NEGATIVE <2 ng/mL Norbuprenorphine NEGATIVE <2 ng/mL Naloxone NEGATIVE <2 ng/mL Buprenorphine Comments Se e LDT Notes UDT Reviewed date:01/20/2025 09:01:21 AM Interpretation: Performing Lab: Notes/Report: THC N 0 - 50 ng/ml Cocaine N 0 - 300 ng/ml Amphetamine N 0 - 1000 ng/ml Buprenorphine (BUP) N 0 - 10 ng/ml Secobarbital (Bar) N 0 - 300 ng/ml Oxazepam (BZO) N 0 - 300 ng/ml 3-tvacllvnlj-4,7-vlamrnix-8, 3-di phenylpyrrolidine (EDDP) N 0 - 300 ng/ml Methamphetamine (MET) N 0 - 1000 ng/ml Methylenedioxymethamphetamin e (MDMA) N 0 - 500 ng/ml Morphine (MOP 300/[id number]) N 0 - 3 00 ng/ml Methadone (MTD) N 0 - 300 ng/ml Phencyclidine (PCP) N 0 - 25 ng/ml Nortriptyline (TCA) N 0 - 1000 ng/ml Oxycodone N 0 - 300 ng/ml UDT Reviewed date:09/30/2024 10:47:29 AM Interpretation: Performing Lab: Notes/Report: THC NEG 0 - 50 ng/ml Cocaine NEG 0 - 300 ng/ml Amphetamine NEG 0 - 1000 ng/ml Buprenorphine (BUP) NEG 0 - 10 ng/ml Secobarbital (Bar) NEG 0 - 300 ng/ml Oxazepam (BZO) NEG 0 - 300 ng/ml 9-dbypxwfpam-0,5-khoggpom-2, 3-di phenylpyrrolidine (EDDP) NEG 0 - 300 ng/ml Methamphetamine (MET) NEG 0 - 1000 ng/ml Methylenedioxymethamphetamin e (MDMA) NEG 0 - 500 ng/ml Morphine (MOP 300/[id number]) NEG 0 - 3 00 ng/ml Methadone (MTD) NEG 0 - 300 ng/ml Phencyclidine (PCP) NEG 0 - 25 ng/ml Nortriptyline (TCA) NEG 0 - 1000 ng/ml Oxycodone NEG 0 - 300 ng/ml x NEG 0 - 300 ng/ml DRUG MONITOR,AMPHETAMINE, W/ DL, QN URINE ([id number]) Reviewed date:10/07/2024 01:16:36 PM Interpretation: Performing Lab:CB, [facility]-[place] [facility], [place] TongAcilOA[address] Don Thien Gleason, Director - [id number] [facility] Notes/Report: FASTING: NO Amphetamine NEGATIVE <250 ng/mL Methamphetamine NEGATIVE <250 ng/mL Amphetamines Comments See LDT Notes Notes and Comments This drug testing is for medical treatment only. Analysis was performed as non-forensic testing and these results should be used only by healthcare providers to render diagnosis or treatment, or to monitor progress of medical conditions. LDT Notes: Confirmation tests were developed and their analytical performance characteristics have been determined by [facility]. It has not been cleared or approved by the FDA. This assay has been validated pursuant to the CLIA regulations and is used for clinical purposes. Healthcare Providers needing Interpretation assistance, please contact us at [phone] ( ) M-F, 8am to 10pm EST UDT Reviewed date:10/28/2024 09:53:39 AM Interpretation: Performing Lab: Notes/Report: THC N 0 - 50 ng/ml Cocaine N 0 - 300 ng/ml Amphetamine N 0 - 1000 ng/ml Buprenorphine (BUP) P 0 - 10 ng/ml Secobarbital (Bar) N 0 - 300 ng/ml Oxazepam (BZO) N 0 - 300 ng/ml 2-bptfrkrzrh-4,0-bjxoltyh-6, 3-di phenylpyrrolidine (EDDP) N 0 - 300 ng/ml Methamphetamine (MET) N 0 - 1000 ng/ml Methylenedioxymethamphetamin e (MDMA) N 0 - 500 ng/ml Morphine (MOP 300/[id number]) N 0 - 3 00 ng/ml Methadone (MTD) N 0 - 300 ng/ml Phencyclidine (PCP) N 0 - 25 ng/ml Nortriptyline (TCA) N 0 - 1000 ng/ml Oxycodone N 0 - 300 ng/ml Reason For Referral No Information Medications Medication SIG (Take, Route, Frequency, Duration) Notes Start Date End Date Status Vitamin D3 125 MCG (5000 UT) Capsule 1 capsule Orally Once a day Active Vitamin B12 5000 MCG? Active DULoxetine HCl 60 MG Capsule Delayed Release Particles 1 capsule Oral Once a day; Duration: 90 days Active CALCIUM MAGNESIUM PLUS D *Reorder from [facility] for eRx and Interaction Alerts* 04/25/2023 Active Folic Acid 1 MG Tablet 1 tablet Oral Once a day 04/25/2023 Active Diclofenac gel Active Pantoprazole Sodium 40 MG Tablet Delayed Release TAKE 1 TABLET BY MOUTH EVERY MORNING Oral twice a day; Duration: 90 days Active hydrOXYzine HCl 10 MG Tablet 1 tablet Oral Once a day; Duration: 90 days As needed 02/03/2025 Active valACYclovir HCl 500 MG Tablet 2 tablets Orally Once a day As needed 09/30/2024 Active Iron 325 (65 Fe) MG Tablet 1 tablet Orally when on period 09/30/2024 Active Hilliard 3 1200 MG Capsule 1 capsule Orally Once a day Active DULoxetine HCl 30 MG Capsule Delayed Release Particles 1 capsule Oral Once a day; Duration: 90 days Active Auvelity 45-105 MG Tablet Extended Release 1 tablet Oral twice a day; Duration: 90 days 01/20/2025 Active predniSONE 10 MG Tablet 1 tablet with food or milk Oral Once a day; Duration: 90 days Active CeleBREX 200 MG Capsule 1 capsule as needed Orally twice a day Active traMADol HCl 50 MG Tablet 1 tablet as needed Oral 3 times a day; Duration: 7 days Active Natazia 3/2-2/2-3/1 MG Tablet 1 tablet Orally Once a day Active azaTHIOprine 50 MG Tablet 2 tablets Oral daily; Duration: 90 days Active Famotidine 40 MG Tablet 1 tablet Orally twice a day Active Social History Tobacco Use: Social History Observation Description Date Details (start date - stop date) Never Smoker NA - NA Sex Assigned At : Social History Observation Description Sex Assigned At Female Social History Tobacco Use: Social Info Question Answer Notes Tobacco Control (Standard) Tobacco use: Nonsmoker Additional Details Category Social Info Options Details Migrated Social History Migrated Social History Alcohol Intake: Occasional 04/25/2023,Tobacco Years: Never smoker 04/25/2023 Drug/Alcohol: Do you smoke marijuana? Den ies Do you drink alcohol? Yes, once a month if that Problems Problem Type SNOMED Code ICD Code Onset Dates Problem Status W/U Status Risk Notes Problem Moderate recurrent major depression (82373776) Major depressive disorder, recurrent, moderate (F33.1) 11/06/19 24 Active confirmed Problem Screening for cardiovascular system disease (084049404) Encounter for screening for cardiovascular disorders (Z13.6) Active confirmed Problem Generalized anxiety disorder (31136618) SARA (generalized anxiety disorder) (F41.1) Active confirmed Problem Mild recurrent major depression (18579406) MDD (major depressive disorder), recurrent episode, mild (F33.0) Active confirmed Problem Attention deficit hyperactivity disorder (144201269) Attention deficit hyperactivity disorder (ADHD), predominantly hyperactive type (F90.1) Active confirmed Vital Signs Heart Rate 98 /min 02/03/2025 Respiratory Rate 20 /min 01/20/2025 Height-cm 160.02 cm 02/03/2025 Blood pressure diastolic 88 mm Hg 02/03/2025 Weight-kg 84.82 kg 02/03/2025 Height 63.00 in 02/03/2025 Blood pressure systolic 128 mm Hg 02/03/2025 Weight 187 lbs 02/03/2025 BMI 33.12 kg/m2 02/03/2025 Encounters Encounter Location Date Provider Diagnosis [address] [address] 05/30/2024 Thena Rocio Major depressive disorder, recurrent, moderate F33.1 and Lack of concentration R41.[address] [address] 06/20/2024 Reza Villarreal [address] [address] 06/27/2024 Reza Villarreal Lack of concentratio n R41.[address] [address] 07/31/2024 Thena Rocio [address] [address] 08/01/2024 Thena Rocio Attention deficit hyperactivity disorder (ADHD), predominantly hyperactive type F90.1 and Major depressive disorder, recurrent, moderate F33.[address] [address] 08/14/2024 Thena Rocio Major depressive disorder, recurrent, moderate F33.1 and Attention deficit hyperactivity disorder (ADHD), predominantly hyperactive type F90.[address] [facility] [address] [place] [address] 09/30/2024 Nette Thery Major depressive disorder, recurrent, moderate F33.1 ; Attention deficit hyperactivity disorder (ADHD), predominantly hyperactive type F90.1 ; Encounter for screening for cardiovascular disorders Z13.6 and SARA (generalized anxiety disorder) F41.1 [facility], [place] [address] [facility] [address] [place] [address] 10/28/2024 Nette Thery Encounter for screen ing for depression Z13.31 ; MDD (major depressive disorder), recurrent episode, mild F33.0 ; Encounter for screening for cardiovascular disorders Z13.6 ; Attention deficit hyperactivity disorder (ADHD), predominantly hyperactive type F90.1 and SARA (generalized anxiety disorder) F41.1 [facility], [address] [facility] [address] [place] [address] 01/20/2025 Nette Thery Encounter for screen ing for depression Z13.31 ; Encounter for screening for cardiovascular disorders Z13.6 ; Attention deficit hyperactivity disorder (ADHD), predominantly hyperactive type F90.1 ; SARA (generalized anxiety disorder) F41.1 and Major depressive disorder, recurrent, moderate F33.1 [place] [address] [facility] [address] [place] [address] 02/03/2025 Nette Thery Encounter for screen ing for depression Z13.31 ; MDD (major depressive disorder), recurrent episode, mild F33.0 ; Encounter for screening for cardiovascular disorders Z13.6 ; Attention deficit hyperactivity disorder (ADHD), predominantly hyperactive type F90.1 and SARA (generalized anxiety disorder) F41.1 [facility], [address] [facility] [address] [place] [address] 08/05/2024 [facility], [place] [address] [facility] [address] [place] [address] 01/22/2025 Nette Therfreeman Major depressive disorder, recurrent, moderate F33.1 [facility], [place] [address] [facility] [address] [place] [address] 08/03/2024 [facility] [place] [address] [facility] [address] [place] [address] 08/07/2024 [facility] [address] [place] [address] 12/24/2024 Nette Tolliver MDD (major depressiv e disorder), recurrent episode, mild F33.0 and Attention deficit hyperactivity disorder (ADHD), predominantly hyperactive type F90.1 [facility] [address] [facility] [address] [place] [address] 12/24/2024 Nette Therfreeman Attention deficit hyperactivity disorder (ADHD), predominantly hyperactive type F90.1 [facility] [address] [place] [address] 12/24/2024 Nette Thery [facility] [address] [place] [address] 01/27/2025 Nette Thery [facility] [address] [facility] [address] [place] [address] 01/27/2025 Nette Tolliver Assessments Encounter Date Diagnosis (ICD Code) Assessment Notes Treatment Notes Treatment Clinical Notes Section Notes 08/14/2024 Major depressive disorder, recurrent, moderate (ICD-10 - F33.1) 08/14/2024 Attention deficit hyperactivity disorder (ADHD), predominantly hyperactive type (ICD-10 - F90.1) 09/30/2024 Major depressive disorder, recurrent, moderate (ICD-10 - F33.1) 1. Depression Cymbalta 90 mg daily in am 2. Anxiety Cymbalta 90 mg daily in am Vistaril 25 mg bedtime, no refill needed today 3.ADHD- reported wears off in afternoon and higher dose also wear off in afternoon and anxious more Methylphenidate ER 36 mg daily in am, ADD Methylphenidate ER 18 mg at noon ADHD stimulates education NO CONTROL SUBSTANCE PRESCRIBED BY ALVA WITH CANNABIS USE OR OTHER ILLEGAL DRUG USE Discuss with patient risk of misuse, abuse, and addiction before prescribing stimulant medicines. Relay Tester Helper patients not to share their prescribed stimulant with anyone else. Educate patients and their families on these serious risks, proper storage of the medicine, and proper disposal of any unused medicine. Educated patient will monitor Throughout treatment, regularly assess and monitor them for signs and symptoms of nonmedical use, addiction, and potential diversion, which may be evidenced by more frequent renewal. requests than warranted by the prescribed dosage. Random [facility] prescription reviewed local pharmacy in [facility], no early refills on control substance educated on non-stimulate and stimulates Discussed and educated pt regarding benzodiazepines are generally not intended for prolonged use and that use can cause tolerance, dependence, depression, and associated memory issues including dementias (this list is not exhaustive). Benzodiazepine use is generally not recommended concurrently with pain medications and/or other controlled substances educated on all medications, benefits, side effects and risk, and educated on depression, anxiety, and ADHD, mood d/o and educated on compliance of medications, metabolic and movement d/o education appointment is, continue therapy discussion with patient about course of treatment and patient instructions. education on serotonin syndrome SSRI/SNRI side effects discussed including but not limited to, gastric upset, nausea, vomiting, diarrhea and/or constipation, weight changes, sexual side effects including loss of libido, increased suicidal thoughts/behavior s in children and young adults, and serotonin syndrome. Second generation antipsychotics (SGAs) have metabolic syndrome issues with weight gain, increase in prolactin, increased waist circumference, increased lipids, and increased glucose. Thus routine monitoring of weight, metabolic labs, etc. is indicated. A general rank ordering of antipsychotics that have the greatest to the least risk of metabolic effects is olanzapine, quetiapine, risperidone, ziprasidone, and aripiprazole. However, weight gain can occur with all of these drugs and considerable variability exists among patients receiving the same drug regarding the risk of metabolic effects. Anti-psychotic agents not only increase the risk of metabolic disorder, they also increase the risk of CVA, akathisia, and movement disorders including EPS or tardive dyskinesia (more common with first generation antipsychotics) and more. . Medication Management and Follow-Up - Plan: - Schedule follow-up appointments every 1-3 months to monitor the patient's response to the medication regimen. - Reinforce the importance of avoiding recreational drug use due to potential neurotoxicity and interactions with prescribed medications. 05/30/2024 Major depressive disorder, recurrent, moderate (ICD-10 - F33.1) 05/30/2024 Lack of concentration (ICD-10 - R41.840) 06/27/2024 Lack of concentration (ICD-10 - R41.840) 09/30/2024 Attention deficit hyperactivity disorder (ADHD), predominantly hyperactive type (ICD-10 - F90.1) 1. Depression Cymbalta 90 mg daily in am 2. Anxiety Cymbalta 90 mg daily in am Vistaril 25 mg bedtime, no refill needed today 3.ADHD- reported wears off in afternoon and higher dose also wear off in afternoon and anxious more Methylphenidate ER 36 mg daily in am, ADD Methylphenidate ER 18 mg at noon ADHD stimulates education NO CONTROL SUBSTANCE PRESCRIBED BY ALVA WITH CANNABIS USE OR OTHER ILLEGAL DRUG USE Discuss with patient risk of misuse, abuse, and addiction before prescribing stimulant medicines. Relay Tester Helper patients not to share their prescribed stimulant with anyone else. Educate patients and their families on these serious risks, proper storage of the medicine, and proper disposal of any unused medicine. Educated patient will monitor Throughout treatment, regularly assess and monitor them for signs and symptoms of nonmedical use, addiction, and potential diversion, which may be evidenced by more frequent renewal. requests than warranted by the prescribed dosage. Random [facility] [place] prescription reviewed local pharmacy in [facility], no early refills on control substance educated on non-stimulate and stimulates Discussed and educated pt regarding benzodiazepines are generally not intended for prolonged use and that use can cause tolerance, dependence, depression, and associated memory issues including dementias (this list is not exhaustive). Benzodiazepine use is generally not recommended concurrently with pain medications and/or other controlled substances educated on all medications, benefits, side effects and risk, and educated on depression, anxiety, and ADHD, mood d/o and educated on compliance of medications, metabolic and movement d/o education appointment is, continue therapy discussion with patient about course of treatment and patient instructions. education on serotonin syndrome SSRI/SNRI side effects discussed including but not limited to, gastric upset, nausea, vomiting, diarrhea and/or constipation, weight changes, sexual side effects including loss of libido, increased suicidal thoughts/behavior s in children and young adults, and serotonin syndrome. Second generation antipsychotics (SGAs) have metabolic syndrome issues with weight gain, increase in prolactin, increased waist circumference, increased lipids, and increased glucose. Thus routine monitoring of weight, metabolic labs, etc. is indicated. A general rank ordering of antipsychotics that have the greatest to the least risk of metabolic effects is olanzapine, quetiapine, risperidone, ziprasidone, and aripiprazole. However, weight gain can occur with all of these drugs and considerable variability exists among patients receiving the same drug regarding the risk of metabolic effects. Anti-psychotic agents not only increase the risk of metabolic disorder, they also increase the risk of CVA, akathisia, and movement disorders including EPS or tardive dyskinesia (more common with first generation antipsychotics) and more. . Medication Management and Follow-Up - Plan: - Schedule follow-up appointments every 1-3 months to monitor the patient's response to the medication regimen. - Reinforce the importance of avoiding recreational drug use due to potential neurotoxicity and interactions with prescribed medications. 10/28/2024 Encounter for screening for depression (ICD-10 - Z13.31) 1. Depression Cymbalta 90 mg daily in am 2. Anxiety Cymbalta 90 mg daily in am Vistaril 25 mg bedtime, no refill needed today 3.ADHD- reported improved with current rx Methylphenidate ER 36 mg daily in am, Methylphenidate ER 18 mg at noon ADHD stimulates education NO CONTROL SUBSTANCE PRESCRIBED BY ALVA WITH CANNABIS USE OR OTHER ILLEGAL DRUG USE Discuss with patient risk of misuse, abuse, and addiction before prescribing stimulant medicines. Relay Tester Helper patients not to share their prescribed stimulant with anyone else. Educate patients and their families on these serious risks, proper storage of the medicine, and proper disposal of any unused medicine. Educated patient will monitor Throughout treatment, regularly assess and monitor them for signs and symptoms of nonmedical use, addiction, and potential diversion, which may be evidenced by more frequent renewal. requests than warranted by the prescribed dosage. Random [facility] prescription reviewed local pharmacy in [facility], no early refills on control substance educated on non-stimulate and stimulates Discussed and educated pt regarding benzodiazepines are generally not intended for prolonged use and that use can cause tolerance, dependence, depression, and associated memory issues including dementias (this list is not exhaustive). Benzodiazepine use is generally not recommended concurrently with pain medications and/or other controlled substances educated on all medications, benefits, side effects and risk, and educated on depression, anxiety, and ADHD, mood d/o and educated on compliance of medications, metabolic and movement d/o education appointment is, continue therapy discussion with patient about course of treatment and patient instructions. education on serotonin syndrome SSRI/SNRI side effects discussed including but not limited to, gastric upset, nausea, vomiting, diarrhea and/or constipation, weight changes, sexual side effects including loss of libido, increased suicidal thoughts/behavior s in children and young adults, and serotonin syndrome. Second generation antipsychotics (SGAs) have metabolic syndrome issues with weight gain, increase in prolactin, increased waist circumference, increased lipids, and increased glucose. Thus routine monitoring of weight, metabolic labs, etc. is indicated. A general rank ordering of antipsychotics that have the greatest to the least risk of metabolic effects is olanzapine, quetiapine, risperidone, ziprasidone, and aripiprazole. However, weight gain can occur with all of these drugs and considerable variability exists among patients receiving the same drug regarding the risk of metabolic effects. Anti-psychotic agents not only increase the risk of metabolic disorder, they also increase the risk of CVA, akathisia, and movement disorders including EPS or tardive dyskinesia (more common with first generation antipsychotics) and more. . Medication Management and Follow-Up - Plan: - Schedule follow-up appointments every 1-3 months to monitor the patient's response to the medication regimen. - Reinforce the importance of avoiding recreational drug use due to potential neurotoxicity and interactions with prescribed medications. 10/28/2024 MDD (major depressive disorder), recurrent episode, mild (ICD-10 - F33.0) 1. Depression Cymbalta 90 mg daily in am 2. Anxiety Cymbalta 90 mg daily in am Vistaril 25 mg bedtime, no refill needed today 3.ADHD- reported improved with current rx Methylphenidate ER 36 mg daily in am, Methylphenidate ER 18 mg at noon ADHD stimulates education NO CONTROL SUBSTANCE PRESCRIBED BY ALVA WITH CANNABIS USE OR OTHER ILLEGAL DRUG USE Discuss with patient risk of misuse, abuse, and addiction before prescribing stimulant medicines. [employer] patients not to share their prescribed stimulant with anyone else. Educate patients and their families on these serious risks, proper storage of the medicine, and proper disposal of any unused medicine. Educated patient will monitor Throughout treatment, regularly assess and monitor them for signs and symptoms of nonmedical use, addiction, and potential diversion, which may be evidenced by more frequent renewal. requests than warranted by the prescribed dosage. Random UDS [place] prescription reviewed local pharmacy in [place], no early refills on control substance educated on non-stimulate and stimulates Discussed and educated pt regarding benzodiazepines are generally not intended for prolonged use and that use can cause tolerance, dependence, depression, and associated memory issues including dementias (this list is not exhaustive). Benzodiazepine use is generally not recommended concurrently with pain medications and/or other controlled substances educated on all medications, benefits, side effects and risk, and educated on depression, anxiety, and ADHD, mood d/o and educated on compliance of medications, metabolic and movement d/o education appointment is, continue therapy discussion with patient about course of treatment and patient instructions. education on serotonin syndrome SSRI/SNRI side effects discussed including but not limited to, gastric upset, nausea, vomiting, diarrhea and/or constipation, weight changes, sexual side effects including loss of libido, increased suicidal thoughts/behavior s in children and young adults, and serotonin syndrome. Second generation antipsychotics (SGAs) have metabolic syndrome issues with weight gain, increase in prolactin, increased waist circumference, increased lipids, and increased glucose. Thus routine monitoring of weight, metabolic labs, etc. is indicated. A general rank ordering of antipsychotics that have the greatest to the least risk of metabolic effects is olanzapine, quetiapine, risperidone, ziprasidone, and aripiprazole. However, weight gain can occur with all of these drugs and considerable variability exists among patients receiving the same drug regarding the risk of metabolic effects. Anti-psychotic agents not only increase the risk of metabolic disorder, they also increase the risk of CVA, akathisia, and movement disorders including EPS or tardive dyskinesia (more common with first generation antipsychotics) and more. . Medication Management and Follow-Up - Plan: - Schedule follow-up appointments every 1-3 months to monitor the patient's response to the medication regimen. - Reinforce the importance of avoiding recreational drug use due to potential neurotoxicity and interactions with prescribed medications. 12/24/2024 MDD (major depressive disorder), recurrent episode, mild (ICD-10 - F33.0) 12/24/2024 Attention deficit hyperactivity disorder (ADHD), predominantly hyperactive type (ICD-10 - F90.1) 08/01/2024 Attention deficit hyperactivity disorder (ADHD), predominantly hyperactive type (ICD-10 - F90.1) 01/20/2025 Encounter for screening for depression (ICD-10 - Z13.31) Learning About Depression Screening material was published 1. Depression- having increase depression Cymbalta 90 mg daily in am- no refill needed today Discuss and educated on Auvelity 45/105 mg - take 1 tab daily for 3 days then increase to 1 tablet twice a day- samples and co-pay card given 2. Anxiety Cymbalta 90 mg daily in am decrease Vistaril 10 mg daily as needed reported have not taken r/t fatigue at 25 mg dose- educated to take rx for anxiety 3.ADHD- reported helps concentration and focus no refill needed today reported not taking daily Methylphenidate ER 36 mg daily in am, Methylphenidate ER 18 mg at noon ADHD stimulates education NO CONTROL SUBSTANCE PRESCRIBED BY ALVA WITH CANNABIS USE OR OTHER ILLEGAL DRUG USE Discuss with patient risk of misuse, abuse, and addiction before prescribing stimulant medicines. [employer] patients not to share their prescribed stimulant with anyone else. Educate patients and their families on these serious risks, proper storage of the medicine, and proper disposal of any unused medicine. Educated patient will monitor Throughout treatment, regularly assess and monitor them for signs and symptoms of nonmedical use, addiction, and potential diversion, which may be evidenced by more frequent renewal. requests than warranted by the prescribed dosage. Random UDS [place] prescription reviewed local pharmacy in [facility], no early refills on control substance educated on non-stimulate and stimulates Discussed and educated pt regarding benzodiazepines are generally not intended for prolonged use and that use can cause tolerance, dependence, depression, and associated memory issues including dementias (this list is not exhaustive). Benzodiazepine use is generally not recommended concurrently with pain medications and/or other controlled substances educated on all medications, benefits, side effects and risk, and educated on depression, anxiety, and ADHD, mood d/o and educated on compliance of medications, metabolic and movement d/o education appointment is, continue therapy discussion with patient about course of treatment and patient instructions. education on serotonin syndrome SSRI/SNRI side effects discussed including but not limited to, gastric upset, nausea, vomiting, diarrhea and/or constipation, weight changes, sexual side effects including loss of libido, increased suicidal thoughts/behavior s in children and young adults, and serotonin syndrome. Second generation antipsychotics (SGAs) have metabolic syndrome issues with weight gain, increase in prolactin, increased waist circumference, increased lipids, and increased glucose. Thus routine monitoring of weight, metabolic labs, etc. is indicated. A general rank ordering of antipsychotics that have the greatest to the least risk of metabolic effects is olanzapine, quetiapine, risperidone, ziprasidone, and aripiprazole. However, weight gain can occur with all of these drugs and considerable variability exists among patients receiving the same drug regarding the risk of metabolic effects. Anti-psychotic agents not only increase the risk of metabolic disorder, they also increase the risk of CVA, akathisia, and movement disorders including EPS or tardive dyskinesia (more common with first generation antipsychotics) and more. . Medication Management and Follow-Up - Plan: - Schedule follow-up appointments every 1-3 months to monitor the patient's response to the medication regimen. - Reinforce the importance of avoiding recreational drug use due to potential neurotoxicity and interactions with prescribed medications. 02/03/2025 Encounter for screening for depression (ICD-10 - Z13.31) Learning About Depression Screening material was published 1. Depression- Cymbalta 90 mg daily in am- Discuss and educated on Auvelity 45/105 mg - 1 tablet twice a day- helps depression co-pay card given 2. Anxiety Cymbalta 90 mg daily in am- [facility] pharmacy Vistaril 10 mg daily as needed- this dose helps not cause fatigue - educated to take rx for anxiety 3.ADHD- reported helps concentration and focus- reported stopped stimualtes and caused migraines and helped mgraines reported not taking rx stopped Methylphenidate ER 36 mg daily in am, stopped Methylphenidate ER 18 mg at noon discuss non-stimualte options ADHD stimulates education- unable to take stimulates- migraines NO CONTROL SUBSTANCE PRESCRIBED BY ALVA WITH CANNABIS USE OR OTHER ILLEGAL DRUG USE Discuss with patient risk of misuse, abuse, and addiction before prescribing stimulant medicines. [employer] patients not to share their prescribed stimulant with anyone else. Educate patients and their families on these serious risks, proper storage of the medicine, and proper disposal of any unused medicine. Educated patient will monitor Throughout treatment, regularly assess and monitor them for signs and symptoms of nonmedical use, addiction, and potential diversion, which may be evidenced by more frequent renewal. requests than warranted by the prescribed dosage. Random UDS [place] prescription reviewed local pharmacy in [place], no early refills on control substance educated on non-stimulate and stimulates Discussed and educated pt regarding benzodiazepines are generally not intended for prolonged use and that use can cause tolerance, dependence, depression, and associated memory issues including dementias (this list is not exhaustive). Benzodiazepine use is generally not recommended concurrently with pain medications and/or other controlled substances educated on all medications, benefits, side effects and risk, and educated on depression, anxiety, and ADHD, mood d/o and educated on compliance of medications, metabolic and movement d/o education appointment is, continue therapy discussion with patient about course of treatment and patient instructions. education on serotonin syndrome SSRI/SNRI side effects discussed including but not limited to, gastric upset, nausea, vomiting, diarrhea and/or constipation, weight changes, sexual side effects including loss of libido, increased suicidal thoughts/behavior s in children and young adults, and serotonin syndrome. Second generation antipsychotics (SGAs) have metabolic syndrome issues with weight gain, increase in prolactin, increased waist circumference, increased lipids, and increased glucose. Thus routine monitoring of weight, metabolic labs, etc. is indicated. A general rank ordering of antipsychotics that have the greatest to the least risk of metabolic effects is olanzapine, quetiapine, risperidone, ziprasidone, and aripiprazole. However, weight gain can occur with all of these drugs and considerable variability exists among patients receiving the same drug regarding the risk of metabolic effects. Anti-psychotic agents not only increase the risk of metabolic disorder, they also increase the risk of CVA, akathisia, and movement disorders including EPS or tardive dyskinesia (more common with first generation antipsychotics) and more. . Medication Management and Follow-Up - Plan: - Schedule follow-up appointments every 1-3 months to monitor the patient's response to the medication regimen. - Reinforce the importance of avoiding recreational drug use due to potential neurotoxicity and interactions with prescribed medications. 02/03/2025 MDD (major depressive disorder), recurrent episode, mild (ICD-10 - F33.0) 1. Depression- Cymbalta 90 mg daily in am- Discuss and educated on Auvelity 45/105 mg - 1 tablet twice a day- helps depression co-pay card given 2. Anxiety Cymbalta 90 mg daily in am- [facility] pharmacy Vistaril 10 mg daily as needed- this dose helps not cause fatigue - educated to take rx for anxiety 3.ADHD- reported helps concentration and focus- reported stopped stimualtes and caused migraines and helped mgraines reported not taking rx stopped Methylphenidate ER 36 mg daily in am, stopped Methylphenidate ER 18 mg at noon discuss non-stimualte options ADHD stimulates education- unable to take stimulates- migraines NO CONTROL SUBSTANCE PRESCRIBED BY ALVA WITH CANNABIS USE OR OTHER ILLEGAL DRUG USE Discuss with patient risk of misuse, abuse, and addiction before prescribing stimulant medicines. [employer] patients not to share their prescribed stimulant with anyone else. Educate patients and their families on these serious risks, proper storage of the medicine, and proper disposal of any unused medicine. Educated patient will monitor Throughout treatment, regularly assess and monitor them for signs and symptoms of nonmedical use, addiction, and potential diversion, which may be evidenced by more frequent renewal. requests than warranted by the prescribed dosage. Random UDS [place] prescription reviewed local pharmacy in [place], no early refills on control substance educated on non-stimulate and stimulates Discussed and educated pt regarding benzodiazepines are generally not intended for prolonged use and that use can cause tolerance, dependence, depression, and associated memory issues including dementias (this list is not exhaustive). Benzodiazepine use is generally not recommended concurrently with pain medications and/or other controlled substances educated on all medications, benefits, side effects and risk, and educated on depression, anxiety, and ADHD, mood d/o and educated on compliance of medications, metabolic and movement d/o education appointment is, continue therapy discussion with patient about course of treatment and patient instructions. education on serotonin syndrome SSRI/SNRI side effects discussed including but not limited to, gastric upset, nausea, vomiting, diarrhea and/or constipation, weight changes, sexual side effects including loss of libido, increased suicidal thoughts/behavior s in children and young adults, and serotonin syndrome. Second generation antipsychotics (SGAs) have metabolic syndrome issues with weight gain, increase in prolactin, increased waist circumference, increased lipids, and increased glucose. Thus routine monitoring of weight, metabolic labs, etc. is indicated. A general rank ordering of antipsychotics that have the greatest to the least risk of metabolic effects is olanzapine, quetiapine, risperidone, ziprasidone, and aripiprazole. However, weight gain can occur with all of these drugs and considerable variability exists among patients receiving the same drug regarding the risk of metabolic effects. Anti-psychotic agents not only increase the risk of metabolic disorder, they also increase the risk of CVA, akathisia, and movement disorders including EPS or tardive dyskinesia (more common with first generation antipsychotics) and more. . Medication Management and Follow-Up - Plan: - Schedule follow-up appointments every 1-3 months to monitor the patient's response to the medication regimen. - Reinforce the importance of avoiding recreational drug use due to potential neurotoxicity and interactions with prescribed medications. 01/22/2025 Major depressive disorder, recurrent, moderate (ICD-10 - F33.1) Electronic Prior Authorization was requested for Auvelity 45-105 MG Tablet Extended Release. Provider can order medication once approval received. 02/03/2025 Encounter for screening for cardiovascular disorders (ICD-10 - Z13.6) 1. Depression- Cymbalta 90 mg daily in am- Discuss and educated on Auvelity 45/105 mg - 1 tablet twice a day- helps depression co-pay card given 2. Anxiety Cymbalta 90 mg daily in am- [facility] pharmacy Vistaril 10 mg daily as needed- this dose helps not cause fatigue - educated to take rx for anxiety 3.ADHD- reported helps concentration and focus- reported stopped stimualtes and caused migraines and helped mgraines reported not taking rx stopped Methylphenidate ER 36 mg daily in am, stopped Methylphenidate ER 18 mg at noon discuss non-stimualte options ADHD stimulates education- unable to take stimulates- migraines NO CONTROL SUBSTANCE PRESCRIBED BY ALVA WITH CANNABIS USE OR OTHER ILLEGAL DRUG USE Discuss with patient risk of misuse, abuse, and addiction before prescribing stimulant medicines. [employer] patients not to share their prescribed stimulant with anyone else. Educate patients and their families on these serious risks, proper storage of the medicine, and proper disposal of any unused medicine. Educated patient will monitor Throughout treatment, regularly assess and monitor them for signs and symptoms of nonmedical use, addiction, and potential diversion, which may be evidenced by more frequent renewal. requests than warranted by the prescribed dosage. Random S [place] prescription reviewed local pharmacy in [facility], no early refills on control substance educated on non-stimulate and stimulates Discussed and educated pt regarding benzodiazepines are generally not intended for prolonged use and that use can cause tolerance, dependence, depression, and associated memory issues including dementias (this list is not exhaustive). Benzodiazepine use is generally not recommended concurrently with pain medications and/or other controlled substances educated on all medications, benefits, side effects and risk, and educated on depression, anxiety, and ADHD, mood d/o and educated on compliance of medications, metabolic and movement d/o education appointment is, continue therapy discussion with patient about course of treatment and patient instructions. education on serotonin syndrome SSRI/SNRI side effects discussed including but not limited to, gastric upset, nausea, vomiting, diarrhea and/or constipation, weight changes, sexual side effects including loss of libido, increased suicidal thoughts/behavior s in children and young adults, and serotonin syndrome. Second generation antipsychotics (SGAs) have metabolic syndrome issues with weight gain, increase in prolactin, increased waist circumference, increased lipids, and increased glucose. Thus routine monitoring of weight, metabolic labs, etc. is indicated. A general rank ordering of antipsychotics that have the greatest to the least risk of metabolic effects is olanzapine, quetiapine, risperidone, ziprasidone, and aripiprazole. However, weight gain can occur with all of these drugs and considerable variability exists among patients receiving the same drug regarding the risk of metabolic effects. Anti-psychotic agents not only increase the risk of metabolic disorder, they also increase the risk of CVA, akathisia, and movement disorders including EPS or tardive dyskinesia (more common with first generation antipsychotics) and more. . Medication Management and Follow-Up - Plan: - Schedule follow-up appointments every 1-3 months to monitor the patient's response to the medication regimen. - Reinforce the importance of avoiding recreational drug use due to potential neurotoxicity and interactions with prescribed medications. 01/20/2025 Encounter for screening for cardiovascular disorders (ICD-10 - Z13.6) 1. Depression- having increase depression Cymbalta 90 mg daily in am- no refill needed today Discuss and educated on Auvelity 45/105 mg - take 1 tab daily for 3 days then increase to 1 tablet twice a day- samples and co-pay card given 2. Anxiety Cymbalta 90 mg daily in am decrease Vistaril 10 mg daily as needed reported have not taken r/t fatigue at 25 mg dose- educated to take rx for anxiety 3.ADHD- reported helps concentration and focus no refill needed today reported not taking daily Methylphenidate ER 36 mg daily in am, Methylphenidate ER 18 mg at noon ADHD stimulates education NO CONTROL SUBSTANCE PRESCRIBED BY ALVA WITH CANNABIS USE OR OTHER ILLEGAL DRUG USE Discuss with patient risk of misuse, abuse, and addiction before prescribing stimulant medicines. Rel[employer] patients not to share their prescribed stimulant with anyone else. Educate patients and their families on these serious risks, proper storage of the medicine, and proper disposal of any unused medicine. Educated patient will monitor Throughout treatment, regularly assess and monitor them for signs and symptoms of nonmedical use, addiction, and potential diversion, which may be evidenced by more frequent renewal. requests than warranted by the prescribed dosage. Random UDS [place] prescription reviewed local pharmacy in [place], no early refills on control substance educated on non-stimulate and stimulates Discussed and educated pt regarding benzodiazepines are generally not intended for prolonged use and that use can cause tolerance, dependence, depression, and associated memory issues including dementias (this list is not exhaustive). Benzodiazepine use is generally not recommended concurrently with pain medications and/or other controlled substances educated on all medications, benefits, side effects and risk, and educated on depression, anxiety, and ADHD, mood d/o and educated on compliance of medications, metabolic and movement d/o education appointment is, continue therapy discussion with patient about course of treatment and patient instructions. education on serotonin syndrome SSRI/SNRI side effects discussed including but not limited to, gastric upset, nausea, vomiting, diarrhea and/or constipation, weight changes, sexual side effects including loss of libido, increased suicidal thoughts/behavior s in children and young adults, and serotonin syndrome. Second generation antipsychotics (SGAs) have metabolic syndrome issues with weight gain, increase in prolactin, increased waist circumference, increased lipids, and increased glucose. Thus routine monitoring of weight, metabolic labs, etc. is indicated. A general rank ordering of antipsychotics that have the greatest to the least risk of metabolic effects is olanzapine, quetiapine, risperidone, ziprasidone, and aripiprazole. However, weight gain can occur with all of these drugs and considerable variability exists among patients receiving the same drug regarding the risk of metabolic effects. Anti-psychotic agents not only increase the risk of metabolic disorder, they also increase the risk of CVA, akathisia, and movement disorders including EPS or tardive dyskinesia (more common with first generation antipsychotics) and more. . Medication Management and Follow-Up - Plan: - Schedule follow-up appointments every 1-3 months to monitor the patient's response to the medication regimen. - Reinforce the importance of avoiding recreational drug use due to potential neurotoxicity and interactions with prescribed medications. 12/24/2024 Attention deficit hyperactivity disorder (ADHD), predominantly hyperactive type (ICD-10 - F90.1) 10/28/2024 Encounter for screening for cardiovascular disorders (ICD-10 - Z13.6) 1. Depression Cymbalta 90 mg daily in am 2. Anxiety Cymbalta 90 mg daily in am Vistaril 25 mg bedtime, no refill needed today 3.ADHD- reported improved with current rx Methylphenidate ER 36 mg daily in am, Methylphenidate ER 18 mg at noon ADHD stimulates education NO CONTROL SUBSTANCE PRESCRIBED BY ALVA WITH CANNABIS USE OR OTHER ILLEGAL DRUG USE Discuss with patient risk of misuse, abuse, and addiction before prescribing stimulant medicines. Rel[employer] patients not to share their prescribed stimulant with anyone else. Educate patients and their families on these serious risks, proper storage of the medicine, and proper disposal of any unused medicine. Educated patient will monitor Throughout treatment, regularly assess and monitor them for signs and symptoms of nonmedical use, addiction, and potential diversion, which may be evidenced by more frequent renewal. requests than warranted by the prescribed dosage. Random UDS [place] prescription reviewed local pharmacy in [place], no early refills on control substance educated on non-stimulate and stimulates Discussed and educated pt regarding benzodiazepines are generally not intended for prolonged use and that use can cause tolerance, dependence, depression, and associated memory issues including dementias (this list is not exhaustive). Benzodiazepine use is generally not recommended concurrently with pain medications and/or other controlled substances educated on all medications, benefits, side effects and risk, and educated on depression, anxiety, and ADHD, mood d/o and educated on compliance of medications, metabolic and movement d/o education appointment is, continue therapy discussion with patient about course of treatment and patient instructions. education on serotonin syndrome SSRI/SNRI side effects discussed including but not limited to, gastric upset, nausea, vomiting, diarrhea and/or constipation, weight changes, sexual side effects including loss of libido, increased suicidal thoughts/behavior s in children and young adults, and serotonin syndrome. Second generation antipsychotics (SGAs) have metabolic syndrome issues with weight gain, increase in prolactin, increased waist circumference, increased lipids, and increased glucose. Thus routine monitoring of weight, metabolic labs, etc. is indicated. A general rank ordering of antipsychotics that have the greatest to the least risk of metabolic effects is olanzapine, quetiapine, risperidone, ziprasidone, and aripiprazole. However, weight gain can occur with all of these drugs and considerable variability exists among patients receiving the same drug regarding the risk of metabolic effects. Anti-psychotic agents not only increase the risk of metabolic disorder, they also increase the risk of CVA, akathisia, and movement disorders including EPS or tardive dyskinesia (more common with first generation antipsychotics) and more. . Medication Management and Follow-Up - Plan: - Schedule follow-up appointments every 1-3 months to monitor the patient's response to the medication regimen. - Reinforce the importance of avoiding recreational drug use due to potential neurotoxicity and interactions with prescribed medications. 08/01/2024 Major depressive disorder, recurrent, moderate (ICD-10 - F33.1) 09/30/2024 Encounter for screening for cardiovascular disorders (ICD-10 - Z13.6) 1. Depression Cymbalta 90 mg daily in am 2. Anxiety Cymbalta 90 mg daily in am Vistaril 25 mg bedtime, no refill needed today 3.ADHD- reported wears off in afternoon and higher dose also wear off in afternoon and anxious more Methylphenidate ER 36 mg daily in am, ADD Methylphenidate ER 18 mg at noon ADHD stimulates education NO CONTROL SUBSTANCE PRESCRIBED BY ALVA WITH CANNABIS USE OR OTHER ILLEGAL DRUG USE Discuss with patient risk of misuse, abuse, and addiction before prescribing stimulant medicines. [employer] patients not to share their prescribed stimulant with anyone else. Educate patients and their families on these serious risks, proper storage of the medicine, and proper disposal of any unused medicine. Educated patient will monitor Throughout treatment, regularly assess and monitor them for signs and symptoms of nonmedical use, addiction, and potential diversion, which may be evidenced by more frequent renewal. requests than warranted by the prescribed dosage. Random [facility] prescription reviewed local pharmacy in [facility], no early refills on control substance educated on non-stimulate and stimulates Discussed and educated pt regarding benzodiazepines are generally not intended for prolonged use and that use can cause tolerance, dependence, depression, and associated memory issues including dementias (this list is not exhaustive). Benzodiazepine use is generally not recommended concurrently with pain medications and/or other controlled substances educated on all medications, benefits, side effects and risk, and educated on depression, anxiety, and ADHD, mood d/o and educated on compliance of medications, metabolic and movement d/o education appointment is, continue therapy discussion with patient about course of treatment and patient instructions. education on serotonin syndrome SSRI/SNRI side effects discussed including but not limited to, gastric upset, nausea, vomiting, diarrhea and/or constipation, weight changes, sexual side effects including loss of libido, increased suicidal thoughts/behavior s in children and young adults, and serotonin syndrome. Second generation antipsychotics (SGAs) have metabolic syndrome issues with weight gain, increase in prolactin, increased waist circumference, increased lipids, and increased glucose. Thus routine monitoring of weight, metabolic labs, etc. is indicated. A general rank ordering of antipsychotics that have the greatest to the least risk of metabolic effects is olanzapine, quetiapine, risperidone, ziprasidone, and aripiprazole. However, weight gain can occur with all of these drugs and considerable variability exists among patients receiving the same drug regarding the risk of metabolic effects. Anti-psychotic agents not only increase the risk of metabolic disorder, they also increase the risk of CVA, akathisia, and movement disorders including EPS or tardive dyskinesia (more common with first generation antipsychotics) and more. . Medication Management and Follow-Up - Plan: - Schedule follow-up appointments every 1-3 months to monitor the patient's response to the medication regimen. - Reinforce the importance of avoiding recreational drug use due to potential neurotoxicity and interactions with prescribed medications. 09/30/2024 SARA (generalized anxiety disorder) (ICD-10 - F41.1) 1. Depression Cymbalta 90 mg daily in am 2. Anxiety Cymbalta 90 mg daily in am Vistaril 25 mg bedtime, no refill needed today 3.ADHD- reported wears off in afternoon and higher dose also wear off in afternoon and anxious more Methylphenidate ER 36 mg daily in am, ADD Methylphenidate ER 18 mg at noon ADHD stimulates education NO CONTROL SUBSTANCE PRESCRIBED BY ALVA WITH CANNABIS USE OR OTHER ILLEGAL DRUG USE Discuss with patient risk of misuse, abuse, and addiction before prescribing stimulant medicines. [employer] patients not to share their prescribed stimulant with anyone else. Educate patients and their families on these serious risks, proper storage of the medicine, and proper disposal of any unused medicine. Educated patient will monitor Throughout treatment, regularly assess and monitor them for signs and symptoms of nonmedical use, addiction, and potential diversion, which may be evidenced by more frequent renewal. requests than warranted by the prescribed dosage. Random [facility] [place] prescription reviewed local pharmacy in [facility], no early refills on control substance educated on non-stimulate and stimulates Discussed and educated pt regarding benzodiazepines are generally not intended for prolonged use and that use can cause tolerance, dependence, depression, and associated memory issues including dementias (this list is not exhaustive). Benzodiazepine use is generally not recommended concurrently with pain medications and/or other controlled substances educated on all medications, benefits, side effects and risk, and educated on depression, anxiety, and ADHD, mood d/o and educated on compliance of medications, metabolic and movement d/o education appointment is, continue therapy discussion with patient about course of treatment and patient instructions. education on serotonin syndrome SSRI/SNRI side effects discussed including but not limited to, gastric upset, nausea, vomiting, diarrhea and/or constipation, weight changes, sexual side effects including loss of libido, increased suicidal thoughts/behavior s in children and young adults, and serotonin syndrome. Second generation antipsychotics (SGAs) have metabolic syndrome issues with weight gain, increase in prolactin, increased waist circumference, increased lipids, and increased glucose. Thus routine monitoring of weight, metabolic labs, etc. is indicated. A general rank ordering of antipsychotics that have the greatest to the least risk of metabolic effects is olanzapine, quetiapine, risperidone, ziprasidone, and aripiprazole. However, weight gain can occur with all of these drugs and considerable variability exists among patients receiving the same drug regarding the risk of metabolic effects. Anti-psychotic agents not only increase the risk of metabolic disorder, they also increase the risk of CVA, akathisia, and movement disorders including EPS or tardive dyskinesia (more common with first generation antipsychotics) and more. . Medication Management and Follow-Up - Plan: - Schedule follow-up appointments every 1-3 months to monitor the patient's response to the medication regimen. - Reinforce the importance of avoiding recreational drug use due to potential neurotoxicity and interactions with prescribed medications. 10/28/2024 Attention deficit hyperactivity disorder (ADHD), predominantly hyperactive type (ICD-10 - F90.1) 1. Depression Cymbalta 90 mg daily in am 2. Anxiety Cymbalta 90 mg daily in am Vistaril 25 mg bedtime, no refill needed today 3.ADHD- reported improved with current rx Methylphenidate ER 36 mg daily in am, Methylphenidate ER 18 mg at noon ADHD stimulates education NO CONTROL SUBSTANCE PRESCRIBED BY ALVA WITH CANNABIS USE OR OTHER ILLEGAL DRUG USE Discuss with patient risk of misuse, abuse, and addiction before prescribing stimulant medicines. [employer] patients not to share their prescribed stimulant with anyone else. Educate patients and their families on these serious risks, proper storage of the medicine, and proper disposal of any unused medicine. Educated patient will monitor Throughout treatment, regularly assess and monitor them for signs and symptoms of nonmedical use, addiction, and potential diversion, which may be evidenced by more frequent renewal. requests than warranted by the prescribed dosage. Random [facility] [place] prescription reviewed local pharmacy in [place], no early refills on control substance educated on non-stimulate and stimulates Discussed and educated pt regarding benzodiazepines are generally not intended for prolonged use and that use can cause tolerance, dependence, depression, and associated memory issues including dementias (this list is not exhaustive). Benzodiazepine use is generally not recommended concurrently with pain medications and/or other controlled substances educated on all medications, benefits, side effects and risk, and educated on depression, anxiety, and ADHD, mood d/o and educated on compliance of medications, metabolic and movement d/o education appointment is, continue therapy discussion with patient about course of treatment and patient instructions. education on serotonin syndrome SSRI/SNRI side effects discussed including but not limited to, gastric upset, nausea, vomiting, diarrhea and/or constipation, weight changes, sexual side effects including loss of libido, increased suicidal thoughts/behavior s in children and young adults, and serotonin syndrome. Second generation antipsychotics (SGAs) have metabolic syndrome issues with weight gain, increase in prolactin, increased waist circumference, increased lipids, and increased glucose. Thus routine monitoring of weight, metabolic labs, etc. is indicated. A general rank ordering of antipsychotics that have the greatest to the least risk of metabolic effects is olanzapine, quetiapine, risperidone, ziprasidone, and aripiprazole. However, weight gain can occur with all of these drugs and considerable variability exists among patients receiving the same drug regarding the risk of metabolic effects. Anti-psychotic agents not only increase the risk of metabolic disorder, they also increase the risk of CVA, akathisia, and movement disorders including EPS or tardive dyskinesia (more common with first generation antipsychotics) and more. . Medication Management and Follow-Up - Plan: - Schedule follow-up appointments every 1-3 months to monitor the patient's response to the medication regimen. - Reinforce the importance of avoiding recreational drug use due to potential neurotoxicity and interactions with prescribed medications. 02/03/2025 Attention deficit hyperactivity disorder (ADHD), predominantly hyperactive type (ICD-10 - F90.1) Learning About Attention Deficit Hyperactivity Disorder (ADHD) in Adults material was published, Attention Deficit Hyperactivity Disorder (ADHD) in Adults: Care Instructions material was published 1. Depression- Cymbalta 90 mg daily in am- Discuss and educated on Auvelity 45/105 mg - 1 tablet twice a day- helps depression co-pay card given 2. Anxiety Cymbalta 90 mg daily in am- [facility] Vistaril 10 mg daily as needed- this dose helps not cause fatigue - educated to take rx for anxiety 3.ADHD- reported helps concentration and focus- reported stopped stimualtes and caused migraines and helped mgraines reported not taking rx stopped Methylphenidate ER 36 mg daily in am, stopped Methylphenidate ER 18 mg at noon discuss non-stimualte options ADHD stimulates education- unable to take stimulates- migraines NO CONTROL SUBSTANCE PRESCRIBED BY ALVA WITH CANNABIS USE OR OTHER ILLEGAL DRUG USE Discuss with patient risk of misuse, abuse, and addiction before prescribing stimulant medicines. [employer] patients not to share their prescribed stimulant with anyone else. Educate patients and their families on these serious risks, proper storage of the medicine, and proper disposal of any unused medicine. Educated patient will monitor Throughout treatment, regularly assess and monitor them for signs and symptoms of nonmedical use, addiction, and potential diversion, which may be evidenced by more frequent renewal. requests than warranted by the prescribed dosage. Random [facility] [place] prescription reviewed local pharmacy in [facility], no early refills on control substance educated on non-stimulate and stimulates Discussed and educated pt regarding benzodiazepines are generally not intended for prolonged use and that use can cause tolerance, dependence, depression, and associated memory issues including dementias (this list is not exhaustive). Benzodiazepine use is generally not recommended concurrently with pain medications and/or other controlled substances educated on all medications, benefits, side effects and risk, and educated on depression, anxiety, and ADHD, mood d/o and educated on compliance of medications, metabolic and movement d/o education appointment is, continue therapy discussion with patient about course of treatment and patient instructions. education on serotonin syndrome SSRI/SNRI side effects discussed including but not limited to, gastric upset, nausea, vomiting, diarrhea and/or constipation, weight changes, sexual side effects including loss of libido, increased suicidal thoughts/behavior s in children and young adults, and serotonin syndrome. Second generation antipsychotics (SGAs) have metabolic syndrome issues with weight gain, increase in prolactin, increased waist circumference, increased lipids, and increased glucose. Thus routine monitoring of weight, metabolic labs, etc. is indicated. A general rank ordering of antipsychotics that have the greatest to the least risk of metabolic effects is olanzapine, quetiapine, risperidone, ziprasidone, and aripiprazole. However, weight gain can occur with all of these drugs and considerable variability exists among patients receiving the same drug regarding the risk of metabolic effects. Anti-psychotic agents not only increase the risk of metabolic disorder, they also increase the risk of CVA, akathisia, and movement disorders including EPS or tardive dyskinesia (more common with first generation antipsychotics) and more. . Medication Management and Follow-Up - Plan: - Schedule follow-up appointments every 1-3 months to monitor the patient's response to the medication regimen. - Reinforce the importance of avoiding recreational drug use due to potential neurotoxicity and interactions with prescribed medications. 01/20/2025 Attention deficit hyperactivity disorder (ADHD), predominantly hyperactive type (ICD-10 - F90.1) Learning About Attention Deficit Hyperactivity Disorder (ADHD) in Adults material was published, Attention Deficit Hyperactivity Disorder (ADHD) in Adults: Care Instructions material was published 1. Depression- having increase depression Cymbalta 90 mg daily in am- no refill needed today Discuss and educated on Auvelity 45/105 mg - take 1 tab daily for 3 days then increase to 1 tablet twice a day- samples and co-pay card given 2. Anxiety Cymbalta 90 mg daily in am decrease Vistaril 10 mg daily as needed reported have not taken r/t fatigue at 25 mg dose- educated to take rx for anxiety 3.ADHD- reported helps concentration and focus no refill needed today reported not taking daily Methylphenidate ER 36 mg daily in am, Methylphenidate ER 18 mg at noon ADHD stimulates education NO CONTROL SUBSTANCE PRESCRIBED BY ALVA WITH CANNABIS USE OR OTHER ILLEGAL DRUG USE Discuss with patient risk of misuse, abuse, and addiction before prescribing stimulant medicines. [employer] patients not to share their prescribed stimulant with anyone else. Educate patients and their families on these serious risks, proper storage of the medicine, and proper disposal of any unused medicine. Educated patient will monitor Throughout treatment, regularly assess and monitor them for signs and symptoms of nonmedical use, addiction, and potential diversion, which may be evidenced by more frequent renewal. requests than warranted by the prescribed dosage. Random [facility] [place] prescription reviewed local pharmacy in [place], no early refills on control substance educated on non-stimulate and stimulates Discussed and educated pt regarding benzodiazepines are generally not intended for prolonged use and that use can cause tolerance, dependence, depression, and associated memory issues including dementias (this list is not exhaustive). Benzodiazepine use is generally not recommended concurrently with pain medications and/or other controlled substances educated on all medications, benefits, side effects and risk, and educated on depression, anxiety, and ADHD, mood d/o and educated on compliance of medications, metabolic and movement d/o education appointment is, continue therapy discussion with patient about course of treatment and patient instructions. education on serotonin syndrome SSRI/SNRI side effects discussed including but not limited to, gastric upset, nausea, vomiting, diarrhea and/or constipation, weight changes, sexual side effects including loss of libido, increased suicidal thoughts/behavior s in children and young adults, and serotonin syndrome. Second generation antipsychotics (SGAs) have metabolic syndrome issues with weight gain, increase in prolactin, increased waist circumference, increased lipids, and increased glucose. Thus routine monitoring of weight, metabolic labs, etc. is indicated. A general rank ordering of antipsychotics that have the greatest to the least risk of metabolic effects is olanzapine, quetiapine, risperidone, ziprasidone, and aripiprazole. However, weight gain can occur with all of these drugs and considerable variability exists among patients receiving the same drug regarding the risk of metabolic effects. Anti-psychotic agents not only increase the risk of metabolic disorder, they also increase the risk of CVA, akathisia, and movement disorders including EPS or tardive dyskinesia (more common with first generation antipsychotics) and more. . Medication Management and Follow-Up - Plan: - Schedule follow-up appointments every 1-3 months to monitor the patient's response to the medication regimen. - Reinforce the importance of avoiding recreational drug use due to potential neurotoxicity and interactions with prescribed medications. 02/03/2025 SARA (generalized anxiety disorder) (ICD-10 - F41.1) Generalized Anxiety Disorder: Care Instructions material was published, Learning About Generalized Anxiety Disorder material was published 1. Depression- Cymbalta 90 mg daily in am- Discuss and educated on Auvelity 45/105 mg - 1 tablet twice a day- helps depression co-pay card given 2. Anxiety Cymbalta 90 mg daily in am- [facility] pharmacy Vistaril 10 mg daily as needed- this dose helps not cause fatigue - educated to take rx for anxiety 3.ADHD- reported helps concentration and focus- reported stopped stimualtes and caused migraines and helped mgraines reported not taking rx stopped Methylphenidate ER 36 mg daily in am, stopped Methylphenidate ER 18 mg at noon discuss non-stimualte options ADHD stimulates education- unable to take stimulates- migraines NO CONTROL SUBSTANCE PRESCRIBED BY ALVA WITH CANNABIS USE OR OTHER ILLEGAL DRUG USE Discuss with patient risk of misuse, abuse, and addiction before prescribing stimulant medicines. [employer] patients not to share their prescribed stimulant with anyone else. Educate patients and their families on these serious risks, proper storage of the medicine, and proper disposal of any unused medicine. Educated patient will monitor Throughout treatment, regularly assess and monitor them for signs and symptoms of nonmedical use, addiction, and potential diversion, which may be evidenced by more frequent renewal. requests than warranted by the prescribed dosage. Random [facility] [place] prescription reviewed local pharmacy in [facility], no early refills on control substance educated on non-stimulate and stimulates Discussed and educated pt regarding benzodiazepines are generally not intended for prolonged use and that use can cause tolerance, dependence, depression, and associated memory issues including dementias (this list is not exhaustive). Benzodiazepine use is generally not recommended concurrently with pain medications and/or other controlled substances educated on all medications, benefits, side effects and risk, and educated on depression, anxiety, and ADHD, mood d/o and educated on compliance of medications, metabolic and movement d/o education appointment is, continue therapy discussion with patient about course of treatment and patient instructions. education on serotonin syndrome SSRI/SNRI side effects discussed including but not limited to, gastric upset, nausea, vomiting, diarrhea and/or constipation, weight changes, sexual side effects including loss of libido, increased suicidal thoughts/behavior s in children and young adults, and serotonin syndrome. Second generation antipsychotics (SGAs) have metabolic syndrome issues with weight gain, increase in prolactin, increased waist circumference, increased lipids, and increased glucose. Thus routine monitoring of weight, metabolic labs, etc. is indicated. A general rank ordering of antipsychotics that have the greatest to the least risk of metabolic effects is olanzapine, quetiapine, risperidone, ziprasidone, and aripiprazole. However, weight gain can occur with all of these drugs and considerable variability exists among patients receiving the same drug regarding the risk of metabolic effects. Anti-psychotic agents not only increase the risk of metabolic disorder, they also increase the risk of CVA, akathisia, and movement disorders including EPS or tardive dyskinesia (more common with first generation antipsychotics) and more. . Medication Management and Follow-Up - Plan: - Schedule follow-up appointments every 1-3 months to monitor the patient's response to the medication regimen. - Reinforce the importance of avoiding recreational drug use due to potential neurotoxicity and interactions with prescribed medications. 01/20/2025 SARA (generalized anxiety disorder) (ICD-10 - F41.1) Generalized Anxiety Disorder: Care Instructions material was published, Learning About Generalized Anxiety Disorder material was published 1. Depression- having increase depression Cymbalta 90 mg daily in am- no refill needed today Discuss and educated on Auvelity 45/105 mg - take 1 tab daily for 3 days then increase to 1 tablet twice a day- samples and co-pay card given 2. Anxiety Cymbalta 90 mg daily in am decrease Vistaril 10 mg daily as needed reported have not taken r/t fatigue at 25 mg dose- educated to take rx for anxiety 3.ADHD- reported helps concentration and focus no refill needed today reported not taking daily Methylphenidate ER 36 mg daily in am, Methylphenidate ER 18 mg at noon ADHD stimulates education NO CONTROL SUBSTANCE PRESCRIBED BY ALVA WITH CANNABIS USE OR OTHER ILLEGAL DRUG USE Discuss with patient risk of misuse, abuse, and addiction before prescribing stimulant medicines. [employer] patients not to share their prescribed stimulant with anyone else. Educate patients and their families on these serious risks, proper storage of the medicine, and proper disposal of any unused medicine. Educated patient will monitor Throughout treatment, regularly assess and monitor them for signs and symptoms of nonmedical use, addiction, and potential diversion, which may be evidenced by more frequent renewal. requests than warranted by the prescribed dosage. Random [facility] prescription reviewed local pharmacy in [facility], no early refills on control substance educated on non-stimulate and stimulates Discussed and educated pt regarding benzodiazepines are generally not intended for prolonged use and that use can cause tolerance, dependence, depression, and associated memory issues including dementias (this list is not exhaustive). Benzodiazepine use is generally not recommended concurrently with pain medications and/or other controlled substances educated on all medications, benefits, side effects and risk, and educated on depression, anxiety, and ADHD, mood d/o and educated on compliance of medications, metabolic and movement d/o education appointment is, continue therapy discussion with patient about course of treatment and patient instructions. education on serotonin syndrome SSRI/SNRI side effects discussed including but not limited to, gastric upset, nausea, vomiting, diarrhea and/or constipation, weight changes, sexual side effects including loss of libido, increased suicidal thoughts/behavior s in children and young adults, and serotonin syndrome. Second generation antipsychotics (SGAs) have metabolic syndrome issues with weight gain, increase in prolactin, increased waist circumference, increased lipids, and increased glucose. Thus routine monitoring of weight, metabolic labs, etc. is indicated. A general rank ordering of antipsychotics that have the greatest to the least risk of metabolic effects is olanzapine, quetiapine, risperidone, ziprasidone, and aripiprazole. However, weight gain can occur with all of these drugs and considerable variability exists among patients receiving the same drug regarding the risk of metabolic effects. Anti-psychotic agents not only increase the risk of metabolic disorder, they also increase the risk of CVA, akathisia, and movement disorders including EPS or tardive dyskinesia (more common with first generation antipsychotics) and more. . Medication Management and Follow-Up - Plan: - Schedule follow-up appointments every 1-3 months to monitor the patient's response to the medication regimen. - Reinforce the importance of avoiding recreational drug use due to potential neurotoxicity and interactions with prescribed medications. 10/28/2024 SARA (generalized anxiety disorder) (ICD-10 - F41.1) 1. Depression Cymbalta 90 mg daily in am 2. Anxiety Cymbalta 90 mg daily in am Vistaril 25 mg bedtime, no refill needed today 3.ADHD- reported improved with current rx Methylphenidate ER 36 mg daily in am, Methylphenidate ER 18 mg at noon ADHD stimulates education NO CONTROL SUBSTANCE PRESCRIBED BY ALVA WITH CANNABIS USE OR OTHER ILLEGAL DRUG USE Discuss with patient risk of misuse, abuse, and addiction before prescribing stimulant medicines. [employer] patients not to share their prescribed stimulant with anyone else. Educate patients and their families on these serious risks, proper storage of the medicine, and proper disposal of any unused medicine. Educated patient will monitor Throughout treatment, regularly assess and monitor them for signs and symptoms of nonmedical use, addiction, and potential diversion, which may be evidenced by more frequent renewal. requests than warranted by the prescribed dosage. Random [facility] [place] prescription reviewed local pharmacy in [place], no early refills on control substance educated on non-stimulate and stimulates Discussed and educated pt regarding benzodiazepines are generally not intended for prolonged use and that use can cause tolerance, dependence, depression, and associated memory issues including dementias (this list is not exhaustive). Benzodiazepine use is generally not recommended concurrently with pain medications and/or other controlled substances educated on all medications, benefits, side effects and risk, and educated on depression, anxiety, and ADHD, mood d/o and educated on compliance of medications, metabolic and movement d/o education appointment is, continue therapy discussion with patient about course of treatment and patient instructions. education on serotonin syndrome SSRI/SNRI side effects discussed including but not limited to, gastric upset, nausea, vomiting, diarrhea and/or constipation, weight changes, sexual side effects including loss of libido, increased suicidal thoughts/behavior s in children and young adults, and serotonin syndrome. Second generation antipsychotics (SGAs) have metabolic syndrome issues with weight gain, increase in prolactin, increased waist circumference, increased lipids, and increased glucose. Thus routine monitoring of weight, metabolic labs, etc. is indicated. A general rank ordering of antipsychotics that have the greatest to the least risk of metabolic effects is olanzapine, quetiapine, risperidone, ziprasidone, and aripiprazole. However, weight gain can occur with all of these drugs and considerable variability exists among patients receiving the same drug regarding the risk of metabolic effects. Anti-psychotic agents not only increase the risk of metabolic disorder, they also increase the risk of CVA, akathisia, and movement disorders including EPS or tardive dyskinesia (more common with first generation antipsychotics) and more. . Medication Management and Follow-Up - Plan: - Schedule follow-up appointments every 1-3 months to monitor the patient's response to the medication regimen. - Reinforce the importance of avoiding recreational drug use due to potential neurotoxicity and interactions with prescribed medications. 01/20/2025 Major depressive disorder, recurrent, moderate (ICD-10 - F33.1) Preventing Depression From Coming Back: Care Instructions material was published, Seasonal Affective Disorder: Care Instructions material was published, Depression Treatment: Care Instructions material was published 1. Depression- having increase depression Cymbalta 90 mg daily in am- no refill needed today Discuss and educated on Auvelity 45/105 mg - take 1 tab daily for 3 days then increase to 1 tablet twice a day- samples and co-pay card given 2. Anxiety Cymbalta 90 mg daily in am decrease Vistaril 10 mg daily as needed reported have not taken r/t fatigue at 25 mg dose- educated to take rx for anxiety 3.ADHD- reported helps concentration and focus no refill needed today reported not taking daily Methylphenidate ER 36 mg daily in am, Methylphenidate ER 18 mg at noon ADHD stimulates education NO CONTROL SUBSTANCE PRESCRIBED BY ALVA WITH CANNABIS USE OR OTHER ILLEGAL DRUG USE Discuss with patient risk of misuse, abuse, and addiction before prescribing stimulant medicines. [employer] patients not to share their prescribed stimulant with anyone else. Educate patients and their families on these serious risks, proper storage of the medicine, and proper disposal of any unused medicine. Educated patient will monitor Throughout treatment, regularly assess and monitor them for signs and symptoms of nonmedical use, addiction, and potential diversion, which may be evidenced by more frequent renewal. requests than warranted by the prescribed dosage. Random [facility] [place] prescription reviewed local pharmacy in [place], no early refills on control substance educated on non-stimulate and stimulates Discussed and educated pt regarding benzodiazepines are generally not intended for prolonged use and that use can cause tolerance, dependence, depression, and associated memory issues including dementias (this list is not exhaustive). Benzodiazepine use is generally not recommended concurrently with pain medications and/or other controlled substances educated on all medications, benefits, side effects and risk, and educated on depression, anxiety, and ADHD, mood d/o and educated on compliance of medications, metabolic and movement d/o education appointment is, continue therapy discussion with patient about course of treatment and patient instructions. education on serotonin syndrome SSRI/SNRI side effects discussed including but not limited to, gastric upset, nausea, vomiting, diarrhea and/or constipation, weight changes, sexual side effects including loss of libido, increased suicidal thoughts/behavior s in children and young adults, and serotonin syndrome. Second generation antipsychotics (SGAs) have metabolic syndrome issues with weight gain, increase in prolactin, increased waist circumference, increased lipids, and increased glucose. Thus routine monitoring of weight, metabolic labs, etc. is indicated. A general rank ordering of antipsychotics that have the greatest to the least risk of metabolic effects is olanzapine, quetiapine, risperidone, ziprasidone, and aripiprazole. However, weight gain can occur with all of these drugs and considerable variability exists among patients receiving the same drug regarding the risk of metabolic effects. Anti-psychotic agents not only increase the risk of metabolic disorder, they also increase the risk of CVA, akathisia, and movement disorders including EPS or tardive dyskinesia (more common with first generation antipsychotics) and more. . Medication Management and Follow-Up - Plan: - Schedule follow-up appointments every 1-3 months to monitor the patient's response to the medication regimen. - Reinforce the importance of avoiding recreational drug use due to potential neurotoxicity and interactions with prescribed medications. 01/20/2025 Other Hydroxyzine material was published, Bupropion material was published, Dextromethorphan material was published 1. Depression- having increase depression Cymbalta 90 mg daily in am- no refill needed today Discuss and educated on Auvelity 45/105 mg - take 1 tab daily for 3 days then increase to 1 tablet twice a day- samples and co-pay card given 2. Anxiety Cymbalta 90 mg daily in am decrease Vistaril 10 mg daily as needed reported have not taken r/t fatigue at 25 mg dose- educated to take rx for anxiety 3.ADHD- reported helps concentration and focus no refill needed today reported not taking daily Methylphenidate ER 36 mg daily in am, Methylphenidate ER 18 mg at noon ADHD stimulates education NO CONTROL SUBSTANCE PRESCRIBED BY ALVA WITH CANNABIS USE OR OTHER ILLEGAL DRUG USE Discuss with patient risk of misuse, abuse, and addiction before prescribing stimulant medicines. [employer] patients not to share their prescribed stimulant with anyone else. Educate patients and their families on these serious risks, proper storage of the medicine, and proper disposal of any unused medicine. Educated patient will monitor Throughout treatment, regularly assess and monitor them for signs and symptoms of nonmedical use, addiction, and potential diversion, which may be evidenced by more frequent renewal. requests than warranted by the prescribed dosage. Random [facility] prescription reviewed local pharmacy in [facility], no early refills on control substance educated on non-stimulate and stimulates Discussed and educated pt regarding benzodiazepines are generally not intended for prolonged use and that use can cause tolerance, dependence, depression, and associated memory issues including dementias (this list is not exhaustive). Benzodiazepine use is generally not recommended concurrently with pain medications and/or other controlled substances educated on all medications, benefits, side effects and risk, and educated on depression, anxiety, and ADHD, mood d/o and educated on compliance of medications, metabolic and movement d/o education appointment is, continue therapy discussion with patient about course of treatment and patient instructions. education on serotonin syndrome SSRI/SNRI side effects discussed including but not limited to, gastric upset, nausea, vomiting, diarrhea and/or constipation, weight changes, sexual side effects including loss of libido, increased suicidal thoughts/behavior s in children and young adults, and serotonin syndrome. Second generation antipsychotics (SGAs) have metabolic syndrome issues with weight gain, increase in prolactin, increased waist circumference, increased lipids, and increased glucose. Thus routine monitoring of weight, metabolic labs, etc. is indicated. A general rank ordering of antipsychotics that have the greatest to the least risk of metabolic effects is olanzapine, quetiapine, risperidone, ziprasidone, and aripiprazole. However, weight gain can occur with all of these drugs and considerable variability exists among patients receiving the same drug regarding the risk of metabolic effects. Anti-psychotic agents not only increase the risk of metabolic disorder, they also increase the risk of CVA, akathisia, and movement disorders including EPS or tardive dyskinesia (more common with first generation antipsychotics) and more. . Medication Management and Follow-Up - Plan: - Schedule follow-up appointments every 1-3 months to monitor the patient's response to the medication regimen. - Reinforce the importance of avoiding recreational drug use due to potential neurotoxicity and interactions with prescribed medications. 02/03/2025 Other Hydroxyzine material was published, Bupropion material was published, Dextromethorphan material was published Preventing Depression From Coming Back: Care Instructions material was published, Seasonal Affective Disorder: Care Instructions material was published, Depression Treatment: Care Instructions material was published 1. Depression- Cymbalta 90 mg daily in am- Discuss and educated on Auvelity 45/105 mg - 1 tablet twice a day- helps depression co-pay card given 2. Anxiety Cymbalta 90 mg daily in am- [facility] pharmacy Vistaril 10 mg daily as needed- this dose helps not cause fatigue - educated to take rx for anxiety 3.ADHD- reported helps concentration and focus- reported stopped stimualtes and caused migraines and helped mgraines reported not taking rx stopped Methylphenidate ER 36 mg daily in am, stopped Methylphenidate ER 18 mg at noon discuss non-stimualte options ADHD stimulates education- unable to take stimulates- migraines NO CONTROL SUBSTANCE PRESCRIBED BY ALVA WITH CANNABIS USE OR OTHER ILLEGAL DRUG USE Discuss with patient risk of misuse, abuse, and addiction before prescribing stimulant medicines. [employer] patients not to share their prescribed stimulant with anyone else. Educate patients and their families on these serious risks, proper storage of the medicine, and proper disposal of any unused medicine. Educated patient will monitor Throughout treatment, regularly assess and monitor them for signs and symptoms of nonmedical use, addiction, and potential diversion, which may be evidenced by more frequent renewal. requests than warranted by the prescribed dosage. Random [facility] [place] prescription reviewed local pharmacy in [place], no early refills on control substance educated on non-stimulate and stimulates Discussed and educated pt regarding benzodiazepines are generally not intended for prolonged use and that use can cause tolerance, dependence, depression, and associated memory issues including dementias (this list is not exhaustive). Benzodiazepine use is generally not recommended concurrently with pain medications and/or other controlled substances educated on all medications, benefits, side effects and risk, and educated on depression, anxiety, and ADHD, mood d/o and educated on compliance of medications, metabolic and movement d/o education appointment is, continue therapy discussion with patient about course of treatment and patient instructions. education on serotonin syndrome SSRI/SNRI side effects discussed including but not limited to, gastric upset, nausea, vomiting, diarrhea and/or constipation, weight changes, sexual side effects including loss of libido, increased suicidal thoughts/behavior s in children and young adults, and serotonin syndrome. Second generation antipsychotics (SGAs) have metabolic syndrome issues with weight gain, increase in prolactin, increased waist circumference, increased lipids, and increased glucose. Thus routine monitoring of weight, metabolic labs, etc. is indicated. A general rank ordering of antipsychotics that have the greatest to the least risk of metabolic effects is olanzapine, quetiapine, risperidone, ziprasidone, and aripiprazole. However, weight gain can occur with all of these drugs and considerable variability exists among patients receiving the same drug regarding the risk of metabolic effects. Anti-psychotic agents not only increase the risk of metabolic disorder, they also increase the risk of CVA, akathisia, and movement disorders including EPS or tardive dyskinesia (more common with first generation antipsychotics) and more. . Medication Management and Follow-Up - Plan: - Schedule follow-up appointments every 1-3 months to monitor the patient's response to the medication regimen. - Reinforce the importance of avoiding recreational drug use due to potential neurotoxicity and interactions with prescribed medications. Plan Of Treatment No Information Insurance Providers Payer Name Payer Address Payer Phone Subscriber Number Group Number Insured Name Patient Relationship to Insured Coverage Start Date Coverage End Date [facility] [address] [place] [address] [id number] ANALY MURRAY Self - patient is the insured Medical (General) History Medical History History ICD Code Problems: Moderate recurrent major depre ssion , Surgical History Surgery Date(Month/Year) ACL replacement on right knee 06/18/1997 Appendectomy (02569) 06/18/2005 Cosmetic surgery 06/18/2007 ACL second knee replacement 06/18/2009 wisdom teeth 06/18/1994 ACL third knee replacement 06/18/2015 pins put in right thumb 06/18/1994 surgery on left wrist 06/18/2003 C- Section 2021
== END 2025-02-12 07:29 | disposition home or self-care (01) ==
PROVIDERS: PCP Family Medicine; Visit Provider Nurse Practitioner
DX: R11.10 Vomiting, unspecified (principal); K21.9 Gastro-esophageal reflux disease without esophagitis; K30 Functional dyspepsia
CPT/HCPCS: 78264; A9541

== ENCOUNTER 2025-04-24 09:12 | Emergency (ER) | payer BC, SELFPAY ==
--- NOTE | 2025-04-24 09:14 | ED.URI ---
HPI - URI/Sore Throat General Chief Complaint: Upper Respiratory Infection Stated Complaint: LOSING VOICE Time Seen by Provider: 04/24/25 09:14 Source: patient Mode of arrival: ambulatory Limitations: no limitations History of Present Illness HPI Narrative: Patient is a 49-year-old female that presents for hoarseness since this morning. Patient has taken nothing. Patient is currently on steroids. Denies any fever, chills, nausea, vomiting, diarrhea. Related Data Home Medications ?Medication ?Instructions ?Recorded ?Confirmed ?Last Taken ?Type calcium-magnesium 750 mg-465 mg 1 tablet PO DAILY 10/10/21 04/20/25 12/08/24 History tablet cholecalciferol (vitamin D3) 125 125 mcg PO DAILY 01/31/23 04/20/25 12/08/24 History mcg (5,000 unit) capsule mecobalamin (vitamin B12) 5,000 5,000 mcg PO DAILY 01/31/23 04/20/25 12/08/24 History mcg chewable tablet omega-3 fatty acids 1,000 mg 1,000 mg PO DAILY 01/31/23 04/20/25 12/08/24 History capsule ferrous sulfate 325 mg (65 mg 325 mg PO DAILY PRN Menstrual cycle 07/05/23 04/20/25 Unknown History iron) tablet (Feosol) Held on 10/21/24. Instructions: Patient Condition duloxetine 30 mg capsule,delayed 30 mg PO DAILY 09/25/24 04/20/25 12/09/24 History release (Cymbalta) duloxetine 60 mg capsule,delayed 60 mg PO .am 09/25/24 04/20/25 12/09/24 History release hydroxyzine HCl 10 mg tablet 10 mg PO QHS PRN insomnia 09/25/24 04/20/25 Unknown History tramadol 50 mg tablet 50 mg PO TID PRN pain 09/25/24 04/24/25 Unknown History celecoxib 200 mg capsule (Celebrex) 200 mg PO BID 10/21/24 04/20/25 12/09/24 History estradiol-dienogest 3 mg/2 mg-2 1 tablet PO DAILY 12/02/24 04/24/25 12/08/24 History mg/2 mg-3 mg/1 mg tablet (Natazia) dextromethorphan IR 45 1 tablet PO QAM 01/26/25 04/20/25 Unknown History mg-bupropion ER 105 mg biphasic tablet (Auvelity) sulfasalazine 500 mg 0.5 g PO BID 03/17/25 04/24/25 Unknown History tablet,delayed release abatacept (with maltose) 250 mg 250 ml IV MONTHLY 03/25/25 04/20/25 Unknown History intravenous solution (Orencia (with maltose)) valacyclovir 1 gram tablet 1,000 mg PO DAILY PRN 03/25/25 04/20/25 Unknown History Allergies Allergy/AdvReac Type Severity Reaction Status Date / Time leflunomide Allergy Intermediate Migraine Verified 04/24/25 09:24 lamotrigine (From Lamictal) Allergy Swelling Verified 04/24/25 09:24 of Lip/Tongue/Throat methotrexate AdvReac Mild Blister Verified 04/24/25 09:24 Review of Systems Review of Systems: All systems reviewed & are unremarkable except as noted in HPI and below Constitutional: Constitutional: Denies chills, Denies fatigue, Denies fever(s), Denies headache(s), Denies malaise and Denies weakness Eyes: Eyes: Denies blurry vision, Denies itchy eyes and Denies loss of vision ENT: Denies otalgia, Denies headache(s), Reports hoarseness, Denies nasal congestion, Denies sinus pain and Denies sore throat Cardiovascular: Cardiovascular: Denies chest pain, Denies irregular heart rhythm and Denies dyspnea Respiratory: Respiratory: Denies cough and Denies dyspnea Gastrointestinal: Gastrointestinal: Denies abdominal pain, Denies diarrhea, Denies nausea and Denies vomiting Musculoskeletal: Musculoskeletal: Denies back pain, Denies myalgias and Denies arthralgias Integumentary/Breasts: Skin/Breast: Denies pruritus and Denies rash Neurologic: Denies headache(s), Denies loss of vision and Denies weakness Psychiatric: Psychiatric: Reports no additional psychiatric complaints Endocrine: Endocrine: Denies fatigue Allergic/Immunologic: Allergic/Immunologic: Denies itchy eyes PMFSH Past Medical History Medical History Migraine PTSD (post-traumatic stress disorder) Depression Rheumatoid arthritis Essential (primary) hypertension delivery delivered Femur fracture, right ACL (anterior cruciate ligament) rupture Thumb fracture Left elbow pain Surgical History Surgical History History of appendectomy [place] teeth extracted Family History Family History Grandparent Heart disease Diabetes mellitus Cancer Gehrig disease Acute Crohn's disease Other Unknown family medical history Social History Social History Alcohol intake: never Alcohol use details: occasionally Substance use: never Substance use type: does not use Lack of Transportation: No Lack of Food: Never True Current Housing: I Have Housing Concerned About Future Housing: No Difficulty Paying Gas/Electric Bills: No Difficulty Paying for Meds: No Currently Unemployed: No Living arrangements: with family Spiritual care concerns: No Comments At time of signature, agree with nursing past medical, surgical, social and family history. There is no relevant family history pertinent to the presenting complaint. Exam Const: General: cooperative, healthy appearing, comfortable, no acute distress and well nourished Nutritional Appearance: well nourished Orientation/consciousness: patient oriented x3 Limitations: no limitations HENMT: Head: normal to inspection, normocephalic and atraumatic Ears: hearing grossly normal bilaterally, external ears normal, TM's normal bilaterally, EAC's normal and no periauricular adenopathy Face/Nose/Sinus: Normal external nose present, Abnormal mucous membranes and turbinates present erythematous bilateral and diffuse, normal facial exam, sinuses nontender and face symmetric Face and sinus: normal facial exam, sinuses nontender and face symmetric Mouth: Yes Normal oral and palatal mucosa present, Yes lip normal, Yes tongue normal, Yes Normal salivary glands and ducts present, Yes oropharynx normal and Yes moist mucous membranes Teeth and gingiva: dentition normal Throat: posterior oropharynx normal, tonsils normal and uvula midline Eyes: General: appearance normal, both eyes and all related structures Alignment and Position: alignment normal and position normal Periorbital: periorbital findings normal Eyelids: eyelids normal Pupils: Equal, round and reactive pupils present Neck: Neck: normal visual inspection, full ROM, no lymphadenopathy and supple Chest: Chest palpation & inspection: normal inspection of the chest and normal palpation of entire chest wall Resp: Effort & Inspection: normal respiratory effort and able to speak in complete sentences Auscultation: clear to auscultation bilaterally, no crackles, no rales, no rhonchi and no wheezes Cardio: Rate: regular rate Rhythm: regular rhythm Heart sounds: S1 normal heart sound present and S2 normal heart sound present GI: Inspection: normal to inspection Skin: General skin exam: normal color and no rashes or lesions noted Neuro: General: patient oriented x3 and moves all extremities Cranial nerves: Yes Equal, round and reactive pupils present Speech: normal speech Gait exam (Neuro): Normal gait present Extrem: General: normal to inspection, full ROM and no edema Psych: Appearance: grossly normal and well kempt Mental Status: mental status grossly normal Speech and movement: Normal speech and movement present Affect: normal affect Attitude: cooperative Thought process: Normal thought process present Course Course Emergency Course: Discharge instructions reviewed with patient, as well as provided in writing per nursing staff. The instructions also include specific and strict return/GO TO THE ER as well as f/u information. All questions have been answered, and the patient deny any further questions with discharge and discharge plan. Portions of this record may have been created with voice recognition software Level of Care: Express Care Visit Vital Signs Vital signs: Vital Signs Temperature 36.8 C 04/24/25 09:21 Pulse Rate 96 04/24/25 09:21 Respiratory Rate 16 04/24/25 09:21 Blood Pressure 121/72 04/24/25 09:21 Pulse Oximetry 99 04/24/25 09:21 Temperature 36.8 C 04/24/25 09:21 Pulse Rate 96 04/24/25 09:21 Respiratory Rate 16 04/24/25 09:21 Blood Pressure 121/72 04/24/25 09:21 Pulse Oximetry 99 04/24/25 09:21 Oxygen Delivery Room Air 04/24/25 09:27 Reviewed MDM - URI/Sore Throat MDM Narrative Medical decision making narrative: Pt well hydrated appearing, in no respiratory distress, hemodynamically stable. Recommend supportive care. The patient is stable at time of discharge the clinical impression was discussed and the patient was given the opportunity to ask questions, which were addressed as completely as possible given the information available at present. Anticipatory guidance and return to care precautions were discussed and the importance of primary care follow-up was stressed and encouraged. The patient voiced understanding of the plan, indications to return, and the need for follow-up. Exam findings show no acute concerns or changes Patient is appropriate for outpatient treatment and follow-up. Differential diagnosis considered: Auguste virus, strep pharyngitis, allergic rhinitis, upper respiratory tract infection, sinusitis, rhinosinusitis, nasopharyngitis. viral pharyngitis, otitis media, otitis externa, otitis effusion, foreign body, cerumen impaction, viral syndrome, and influenza.? Medical Records Attestation: I reviewed the patient's medical records. Discharge Plan Discharge Clinical Impression: Hoarseness Patient Disposition: Home Condition: Stable Instructions: Pharyngitis (ED) Additional Instructions: Your symptoms are likely due to a viral illness, which is not treated with antibiotics. Viral symptoms can be present for up to a few weeks. -For pain/fever, you may take: Tylenol 650-1000mg by mouth every 4-6 hours. Do not exceed 4000mg in 24 hours. Advil (Ibuprofen) 600 mg by mouth every 6 hours. Do not exceed 2400mg in 24 hours. 8 AM: Tylenol 11 AM: Ibuprofen 2 PM: Tylenol 5 PM: Ibuprofen 8 PM: Tylenol 11 PM: Ibuprofen 2 AM: Tylenol 5 AM: Ibuprofen -Antihistamine medication such as Benadryl/Zyrtec at night and Claritin/Dimple during the day can help improve symptoms. -Use Flonase twice a day for 5 days then daily to help reduce the inflammation and dry up your sinuses. -You can also use Sudafed behind the pharmacy counter(12 or 24 hour). Be sure to drink plenty of water with these medications at least 8 ounces with every dose and it is important to drink 8 to 10 glasses of water per day. Water is a natural decongestant -Eat and drink things that are easy to swallow, like tea or soup, or popsicles. -Oral rinses such as: Salt water gargles and/or may use topical anesthetic (eg. Chloraseptic spray) or lozenges to relieve dryness or throat pain). -Frequent hand washing or hand sensor technician is one of the best ways to prevent spread of infection. -Using a vaporizer or humidifier at night will also help thin secretions and help with coughing up phlegm. Call your Primary Care Doctor and make a follow-up appointment in 3 days. If your cough worsens, you develop a fever greater than 103, you develop shaking chills, a fast heartbeat, trouble breathing and/or feel you are are breathing much faster than usual, call your Primary Care Doctor or go to the ER. Patient Language: Thai Prescriptions: No Action valacyclovir 1 gram tablet 1,000 mg PO DAILY PRN Rx Instructions: Take one tablet daily. If your symptoms do not improve, take a second dose. Do not take more than 2 tablets in 48 hours methocarbamol 750 mg tablet 750 mg PO Q6H Qty: 180 0RF metoprolol succinate 25 mg tablet extended release 24 hr 25 mg PO DAILY Qty: 90 0RF famotidine 40 mg tablet 40 mg PO QHS Qty: 90 3RF pantoprazole 40 mg tablet,delayed release (DR/EC) 40 mg PO QAM Qty: 90 3RF sulfasalazine 500 mg tablet,delayed release (DR/EC) 0.5 g PO BID Ajovy Autoinjector 225 mg/1.5 mL auto-injector 225 mg subcut MONTHLY Qty: 1.5 6RF Orencia (with maltose) 250 mg recon soln 250 ml IV MONTHLY cholecalciferol (vitamin D3) 125 mcg (5,000 unit) capsule 125 mcg PO DAILY mecobalamin (vitamin B12) 5,000 mcg tablet,chewable 5,000 mcg PO DAILY omega-3 fatty acids 1,000 mg capsule 1,000 mg PO DAILY ferrous sulfate [Feosol] 325 mg (65 mg iron) tablet 325 mg PO DAILY PRN (Reason: Menstrual cycle) diclofenac sodium [Voltaren Arthritis Pain] 1 % gel 4 g topical QID Qty: 100 2RF Rx Instructions: apply to single knee, ankle, foot; for foot includes sole/toes/top of foot duloxetine [Cymbalta] 30 mg capsule,delayed release(DR/EC) 30 mg PO DAILY Patient Comments: Total of 90mg duloxetine 60 mg capsule,delayed release(DR/EC) 60 mg PO .am tramadol 50 mg tablet 50 mg PO TID PRN (Reason: pain) hydroxyzine HCl 10 mg tablet 10 mg PO QHS PRN (Reason: insomnia) celecoxib [Celebrex] 200 mg capsule 200 mg PO BID cetirizine [Zyrtec] 10 mg tablet 10 mg PO DAILY Qty: 90 3RF Auvelity 45-105 mg tablet, IR and ER, biphasic 1 tablet PO QAM prednisone 1 mg tablet 1 mg PO DAILY Qty: 42 0RF Rx Instructions: 6,6,5,5,4,4,3,3,2,2,1,1 calcium-magnesium 750-465 mg Tablet 1 tablet PO DAILY Natazia 3 mg/2 mg-2 mg/ 2 mg-3 mg/1 mg tablet 1 tablet PO DAILY folic acid 1 mg tablet 1 mg PO DAILY Qty: 90 1RF rizatriptan 5 mg tablet See Rx Instructions PO .COMPLEX Qty: 14 0RF Rx Instructions: take 1 tablet at onset of headache; if no relief, may repeat 1 tablet after at least 2 hrs PO lisinopril 5 mg tablet 5 mg PO DAILY Qty: 90 1RF metoclopramide HCl 5 mg tablet See Rx Instructions .ROUTE .COMPLEX Qty: 120 6RF Dose Instruction: Take 1 tablet by mouth every 6 hours as needed for gastroparesis. Rx Instructions: Take 1 tablet by mouth every 6 hours as needed for gastroparesis. Follow-up/Referrals: Julianne De La Torre DO [Primary Care Provider, Family Practice] - 3 Days Stand Alone Forms: Work/School Release IP Time of Disposition: 10:00
[2025-04-24 09:21] VITALS: BP 121/72; PULSE 96; RESP 16; TEMP 36.8; O2SAT 99
== END 2025-04-24 10:04 | disposition home or self-care (01) ==
PROVIDERS: Emergency Provider Nurse Practitioner Family; PCP Family Medicine
DX: R49.0 Dysphonia (principal); I10 Essential (primary) hypertension; M06.9 Rheumatoid arthritis, unspecified; F32.A Depression, unspecified
CPT/HCPCS: 99211; G0463

== ENCOUNTER 2025-05-01 06:49 | Outpatient (CLI) | payer BC, SELFPAY ==
--- OUTSIDE RECORDS SUMMARY | 2025-05-01 06:52 | XMS_ITS | Clinical Summary ---
Author Organization [facility] Address [address] [place] [address] Care Team Providers Care Smoking Pipe Mounter Name Role Phone Unavailable Primary Care Provider Unavailabl e Source Comments [facility],non-owned Affiliates and Associated Physician Practices is amultiple site organization consisting of ambulatory clinics and hospital sitesin [place], [place], [place] and [place]. This disclosure is being madepursuant to the Care Everywhere program and may not contain all information available regarding this patient. Last updated 18.[facility] Social History Tobacco Use Types Packs/Day Years [...] of 3 - 19+ 3-dose series) 1996 Cervical Cancer Screening 1998 PAP SMEAR 1998 PAP with HPV 08/20/2007 DEPRESSION SCREENING 06/18/2024 COVID-19 VACCINE (2024-2 6 season) 2025 03/31/2022, 10/11/2020, 09/18/2020 INFLUENZA VACCINE (#1) 2025 3, 03/31/2022, 01/28/2021 [...] age to complete this topic Insurance [facility] SELF PAY NO INSURANCE Member Subscriber Plan / Payer (Ef fective for All Dates) Name:Bernie Murray Member ID:Not on file Relation to Subscriber:Not on file Name:BERNIE MURRAY Subscriber ID:Not on file (Home) Address: [address] [place] [id number] Payer ID:Not on file Group ID:Not on file Type:Self Pay Address: [place], [place]
--- OUTSIDE RECORDS SUMMARY | 2025-05-01 06:52 | XMS_ITS | Clinical Summary ---
Author Organization [facility] HealthCare Care Team Providers Care [employer] Name Role Phone Julianne De La Torre DO Primary Care Provider [phone]- [phone] Allergies Active Allergy Reactions Criticality Noted Date [...] Encounters Date Type Department Care Team Description 04/03/2025 3:15 PM CDT - 04/03/2025 11:59 PM CDT Hospital Encounter [facility] [address] [place] [address] Pain in shoulder region, left Discharge Disposition: Discharge to home or self care 04/03/2025 2:05 PM CDT - 04/03/2025 11:59 PM CDT Hospital Encounter [facility] [address] [place] [address] Rad, Amh Fluoro Pain in shoulder region, left Discharge Disposition: Discharge to home or self care 02/06/2025 3:28 PM CDT - 02/06/2025 11:59 PM CDT Hospital Encounter [facility] [address] [place] [address] Chronic migraine without aura, not intractable, without [...] on file 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 Gender Identity Not on file Sexual Orientation Not on file Last Filed Vital Signs Vital Sign Reading Time Taken Comments Blood Pressure 120/74 12/08/2020 4:24 PM CDT Pulse 70 12/08/2020 4:24 PM CDT Temperature 37 C (98.6 F) 12/08/2020 4:24 PM CDT Respiratory Rate 16 12/08/2020 4:24 PM CDT Oxygen Saturation 98% 12/08/2020 4:24 PM CDT Inhaled Oxygen Concentration - - Weight 88 kg (194 lb) 03/31/2025 12:41 PM CDT Height 160 cm (5' 3) 12/08/2020 4:24 PM CDT Body Mass Index 34.37 12/08/2020 4:24 PM CDT Plan of Treatment Health Maintenance Due Date Last Done Comments Breast Cancer Screening-Mammogram 1977 Cervical Cancer Screening 1977 Colon Cancer Screening-Colonoscopy 1977 Depression Screening 1977 Hepatitis C Screening 1977 Regular Well Visit/Exam 18-64 08/20/1995 Covid-19 Vaccine ( season) 2025 03/17/2024, 03/22/2023, 03/31/2022, Additional history exists Influenza Vaccine (#1) 2025 , 03/22/2023, 03/31/2022, Additional history exists DTaP/Tdap/Td Vaccine (4 - Td or Tdap) 12/23/2034 12/23/2024, 04/24/2024, 11/11/2021 Hepatitis B Screening Completed 03/31/2024, 024 Pneumococcal vaccine <65 Aged Out No longer eligible based on patient's age to complete this topic Procedures Procedure Name Priority Date/Time Associated Diagnosis Comments MRI SHOULDER ARTHROGRAM LEFT W CONTRAST Schedule Routine, Read Routine (OP Routine) 04/03/2025 3:45 PM CDT Pain in shoulder region, left INJECTION SHOULDER LEFT ARTHRO ONLY Schedule Routine, Read Routine (OP Routine) 04/03/2025 2:49 PM CDT Pain in shoulder region, left MRI BRAIN WO CONTRAST Schedule Routine, Read Routine (OP Routine) 02/06/2025 4:12 PM CDT Chronic migraine without aura, not intractable, without status migrainosus from Last 3 Months Results * MRI Shoulder Arthrogram Left W Contrast (04/03/2025 3:45 PM CDT) Anatomical Region Laterality Modality Upper Extremities Left Magnetic Reson ance 04/04/2025 2:17 PM CDT Narrative 04/04/2025 2:21 PM CDT EXAM DESCRIPTION: MRI SHOULDER ARTHROGRAM LEFT W CONTRAST REASON FOR STUDY: shoulder pain Left shoulder pain for 3-6 months. Patient fell and caught herself with her arm extended. TECHNIQUE: Multiplanar, multisequence MRI of the left shoulder was performed with intra-articular contrast. Details of the arthrogram injection are dictated separately. COMPARISON: None available FINDINGS: There is a type 2 acromion. The coracoacromial ligament is thin with a small subacromial spur. There is mild acromioclavicular joint osteoarthritis. The subacromial subdeltoid bursa communicates with the joint space. Subacute denervation of the supraspinatus is present. The subscapularis is intact. The biceps tendon is located within the bicipital groove. Supraspinatus and infraspinatus cuff tendinosis is present. 15 x 25 mm full-thickness tear of the supraspinatus is present. Torn tendinopathic margins are retracted beneath the acromion. On this arthrographic evaluation, the bicipital anchor and superior glenoid labrum are intact. The labrum below the equator is normal. The glenohumeral cartilage is normal. There are no loose bodies. IMPRESSION: 1. 15 x 25 mm full-thickness tear of the left supraspinatus with torn tendinopathic margins retracted beneath the acromion. 2. Mild left acromioclavicular joint osteoarthritis. THIS IS AN ELECTRONICALLY VERIFIED FINAL REPORT 04/04/2025 2:21 PM - Electronically signed by Frantz Anderson M.D. MF: [email or web address] Report ID: [id number] Reading Location: [id number] Procedure Note Frantz Anderson MD - 04/04/2025 EXAM DESCRIPTION: MRI SHOULDER ARTHROGRAM LEFT W CONTRAST REASON FOR STUDY: shoulder pain Left shoulder pain for 3-6 months. Patient fell and caught herself withher arm extended. TECHNIQUE: Multiplanar, multisequence MRI of the left shoulder wasperformed with intra-articular contrast. Details of the arthrogram injection are dictated separately. COMPARISON: None available FINDINGS: There is a type 2 acromion. The coracoacromial ligament is thin with asmall subacromial spur. There is mild acromioclavicular joint osteoarthritis.The subacromial subdeltoid bursa communicates with the joint space. Subacute denervation of the supraspinatus is present. The subscapularisis intact. The biceps tendon is located within the bicipital groove. Supraspinatus and infraspinatus cuff tendinosis is present. 15 x 25 mm full-thickness tear of the supraspinatus is present. Torn tendinopathic margins are retracted beneath the acromion. On this arthrographic evaluation, the bicipital anchor and superiorglenoid labrum are intact. The labrum below the equator is normal. Theglenohumeral cartilage is normal. There are no loose bodies. IMPRESSION: 1. 15 x 25 mm full-thickness tear of the left supraspinatus with torn tendinopathic margins retracted beneath the acromion. 2. Mild left acromioclavicular joint osteoarthritis. THIS IS AN ELECTRONICALLY VERIFIED FINAL REPORT 04/04/2025 2:21 PM - Electronically signed by Frantz Anderson M.D. MF: [email or web address] Report ID: [id number] Reading Location: [id number] Art Davis MD IM MRI PROCEDURES Final Resu lt * Injection Shoulder Left Arthro Only (04/03/2025 2:49 PM CDT) Anatomical Region Laterality Modality Shoulder Left Radio Fluoroscop y 04/03/2025 3:01 PM CDT Narrative 04/03/2025 3:02 PM CDT EXAM DESCRIPTION: 1. Left shoulder joint injection for arthrography 2. Fluoroscopic guidance for needle placement HISTORY: shoulder pain Time: 8.8 sec Dose: 0.8582 mGy , pre MR arthrogram RADIATION DOSE: Dose: 0.0377 mGycm2 Dose Area Product (DAP) TECHNIQUE: After informed consent including the risks, benefits, and alternatives, the patient was placed on the fluoroscopy table. The left shoulder was localized with fluoroscopy. After localization, the shoulder was prepped and draped in usual sterile fashion. 1% lidocaine was utilized for local anesthetic. A 22-gauge spinal needle was advanced into the shoulder joint from anterior approach. 1 mL of a mixture 10 mL Omnipaque 240, 10 mL sodium chloride, and 0.1 mL Dotarem was administered to confirm needle placement within the joint. After confirmation of needle placement, 12 mL the remaining solution was injected into the joint space under fluoroscopy. Hard copy image was obtained. The patient tolerated the procedure well and was transferred to the MRI department for further imaging. FINDINGS: Fluoroscopic images confirm intra-articular position of the needle tip with subsequent filling of the joint space. The results of the MR arthrogram are reported separately. IMPRESSION: 1. Technically successful fluoroscopic guided left shoulder arthrogram for MRI. THIS IS AN ELECTRONICALLY VERIFIED FINAL REPORT 04/03/2025 3:02 PM - Electronically signed by Monroe Foster D.O. PS: PS Report ID: [id number] Reading Location: [id number] Procedure Note Monroe Foster DO - 04/03/2025 EXAM DESCRIPTION: 1. Left shoulder joint injection for arthrography 2. Fluoroscopic guidance for needle placement HISTORY: shoulder pain Time: 8.8 sec Dose: 0.8582 mGy , pre MR arthrogram RADIATION DOSE: Dose: 0.0377 mGycm2 Dose Area Product (DAP) TECHNIQUE: After informed consent including the risks, benefits, and alternatives, the patient was placed on the fluoroscopy table. The left shoulder was localized with fluoroscopy. After localization,the shoulder was prepped and draped in usual sterile fashion. 1% lidocaine was utilized for local anesthetic. A 22-gauge spinal needle was advanced intothe shoulder joint from anterior approach. 1 mL of a mixture 10 mL [id number], 10 mL sodium chloride, and 0.1 mL Dotarem was administered to confirmneedle placement within the joint. After confirmation of needle placement, 12 mL the remaining solution was injected into the joint space under fluoroscopy. Hard copy image wasobtained. The patient tolerated the procedure well and was transferred to the MRI department for further imaging. FINDINGS: Fluoroscopic images confirm intra-articular position of the needle tipwith subsequent filling of the joint space. The results of the MR arthrogramare reported separately. IMPRESSION: 1. Technically successful fluoroscopic guided left shoulder arthrogramfor MRI. THIS IS AN ELECTRONICALLY VERIFIED FINAL REPORT 04/03/2025 3:02 PM - Electronically signed by Monroe Foster D.O. PS: PS Report ID: [id number] Reading Location: [place] [id number] [place] Art Davis MD IMG XR PROCEDURES Final Resul t * MRI Brain WO Contrast (02/06/2025 4:12 [...] Electronically signed by Juliano Vela D.O. AP: DANIELLE Report ID: [id number] Reading Location: [id number] Procedure Note Juliano Vela, DO - 02/09/2025 EXAM DESCRIPTION: MRI BRAIN WO CONTRAST REASON FOR STUDY: chronic migraine Migraines for years, increasing in frequency. Daily headaches now. TECHNIQUE: Multiplanar imaging includes non-contrasted T1, T2, FLAIR, and diffusion with ADC map sequences. Additional sequence(s) sensitive [employer] Images stored on PACS. COMPARISON: None available. [...] Electronically signed by Juliano Vela D.O. AP: DANIELLE Report ID: [id number] Reading Location: [place] [address] us Radhatrevon Smith [facility] IMG MRI PROCEDURES Final R esult from Last 3 Months Insurance [facility] Address: [facility] [id number] [place] [address] [facility] Address: [address] [place] [address] Care Teams [employer] Hand Relationship Specialty Start Date End Date Julianne De La Torre DO PCP - General Family Medicine 02/02/25
--- OUTSIDE RECORDS SUMMARY | 2025-05-01 06:53 | XMS_ITS | Patient Health Record ---
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 Name Role Phone Grantsilvanosteve Julianne WEBSTER Primary Care Provider Unavailab Nette Cherry Unavailable [phone] Reza Villarreal Unavailable [phone] Rocio, Thena Unavailable [phone] Allergies Allergen (clinical drug ingredient) Drug/Non Drug Allergy documented on EMR Reaction Allergy Type Onset Date Status lamotrigine LaMICtal flu like symtopms Drug Allergy Active methotrexate Methotrexate blisters Drug Allergy A ctive Results Component Value Reference Range Flag Notes UDT Reviewed date:06/29/2024 06:01:18 PM Interpretation: Performing Lab: Notes/Report: Amphetamine (AMP) N 0 - 1000 ng/ml Buprenorphine (BUP) N 0 - 10 ng/ml Oxazepam (BZO) N 0 - 300 ng/ml Cocaine (PASQUALE) N 0 - 300 ng/ml Methamphetamine (mAMP) N 0 - 300 ng/ml Methylenedioxymethamphetamin e (MDMA) N 0 - 500 ng/ml Morphine (MOP) N 0 - 25 ng/ml Methadone (MTD) N 0 - 300 ng/ml Oxycodone (OXY) N 0 - 300 ng/ml THC N 0 - 50 ng/ml x N 0 - 1000 ng/ml x N 0 - 1000 ng/ml x N 0 - 300 ng/ml x N 0 - 300 ng/ml x N 0 - 300 ng/ml UDT Reviewed date:09/30/2024 10:47:29 AM Interpretation: Performing Lab: Notes/Report: Amphetamine (AMP) NEG 0 - 1000 ng/ml Buprenorphine (BUP) NEG 0 - 10 ng/ml Oxazepam (BZO) NEG 0 - 300 ng/ml Cocaine (PASQUALE) NEG 0 - 300 ng/ml Methamphetamine (mAMP) NEG 0 - 300 ng/ml Methylenedioxymethamphetamin e (MDMA) NEG 0 - 500 ng/ml Morphine (MOP) NEG 0 - 25 ng/ml Methadone (MTD) NEG 0 - 300 ng/ml Oxycodone (OXY) NEG 0 - 300 ng/ml THC NEG 0 - 50 ng/ml x NEG 0 - 1000 ng/ml x NEG 0 - 1000 ng/ml x NEG 0 - 300 ng/ml x NEG 0 - 300 ng/ml x NEG 0 - 300 ng/ml UDT Reviewed date:10/28/2024 09:53:39 AM Interpretation: Performing Lab: Notes/Report: Amphetamine (AMP) N 0 - 1000 ng/ml Buprenorphine (BUP) P 0 - 10 ng/ml Oxazepam (BZO) N 0 - 300 ng/ml Cocaine (PASQUALE) N 0 - 300 ng/ml Methamphetamine (mAMP) N 0 - 300 ng/ml Methylenedioxymethamphetamin e (MDMA) N 0 - 500 ng/ml Morphine (MOP) N 0 - 25 ng/ml Methadone (MTD) N 0 - 300 ng/ml Oxycodone (OXY) N 0 - 300 ng/ml THC N 0 - 50 ng/ml x N 0 - 1000 ng/ml x N 0 - 1000 ng/ml x N 0 - 300 ng/ml x N 0 - 300 ng/ml DRUG MONITOR,AMPHETAMINE, W/ DL, QN URINE ([id number]) Reviewed date:10/07/2024 01:16:36 PM Interpretation: Performing Lab:[facility] [id number] [facility], [id number] Don Gleason, Director - [address] [facility] Notes/Report: FASTING: NO Amphetamine NEGATIVE <250 ng/mL [...] analytical performance characteristics have been determined by [employer]. It has not been cleared or approved by the FDA. This assay has been validated pursuant to the CLIA regulations and is used for clinical purposes. Healthcare Providers needing Interpretation assistance, please contact us at [phone] ( ) M-F, 8am to 10pm EST DRUG MONITOR, BUP AND NALOXO NE,QN,URINE ([id number]) Reviewed date:11/05/2024 08:16:56 AM Interpretation: Performing Lab:K[facility] [facility] [employer], [facility] [id number] Don Gleason Notes/Report: FASTING: NO Buprenorphine NEGATIVE <2 ng/mL Norbuprenorphine NEGATIVE <2 ng/mL Naloxone NEGATIVE <2 ng/mL Buprenorphine Comments Se e LDT Notes DRUG MONITOR, TRAMADOL, QN, URINE ([id number]) Reviewed date:11/05/2024 08:16:45 AM Interpretation: Performing Lab:KEMAL [facility] [place] [employer], [facility] [id number] Don Gleason, Director - [id number] [place], [place] [address] Notes/Report: FASTING: NO Desmethyltramadol >41465 <100 ng/mL H medMATCH Desmethyltram CONSISTENT Tramadol >15542 <100 ng/mL H medMATCH Tramadol CONSISTENT Tramadol Comments See Sherif pritchard Notes, LDT Notes Notes and Comments This [...] analytical performance characteristics have been determined by [employer]. It has not been cleared or approved by the FDA. This assay has been validated pursuant to the CLIA regulations and is used for clinical purposes. medMATCH(R) enables providers to identify if drug use is consistent or inconsistent with a corresponding prescribed medication(s) list. Healthcare Providers needing Interpretation assistance, please contact us at [phone] ( ) M-F, 8am to 10pm EST PRESCRIBED DRUGS, medMATCH(R ) ([id number]) Reviewed date:11/05/2024 08:17:06 AM Interpretation: Performing Lab:[place], [id number] Bianca Sreedhar, [id number] Peg Lima MD Notes/Report: FASTING: NO medMATCH Summary Prescribed Prescribed Not Prescribed Consistent Inconsistent Inconsistent Tramadol Prescribed no testing ordered: Methylphenidate Prescribed Drug 1 Methylphenidate Prescribed Drug 2 Tramadol UDT Reviewed date:01/20/2025 09:01:21 AM Interpretation: Performing Lab: Notes/Report: Amphetamine (AMP) N 0 - 1000 ng/ml Buprenorphine (BUP) N 0 - 10 ng/ml Oxazepam (BZO) N 0 - 300 ng/ml Cocaine (PASQUALE) N 0 - 300 ng/ml Methamphetamine (mAMP) N 0 - 300 ng/ml Methylenedioxymethamphetamin e (MDMA) N 0 - 500 ng/ml Morphine (MOP) N 0 - 25 ng/ml Methadone (MTD) N 0 - 300 ng/ml Oxycodone (OXY) N 0 - 300 ng/ml THC N 0 - 50 ng/ml x N 0 - 1000 ng/ml x N 0 - 1000 ng/ml x N 0 - 300 ng/ml x N 0 - 300 ng/ml Reason For [...] Active CALCIUM MAGNESIUM PLUS D *Reorder from [facility]abe[facility] for eRx and Interaction Alerts* 04/25/2023 Active [...] tablet Orally when on period 09/30/2024 Active [place] 3 1200 MG Capsule 1 capsule Orally [...] Risk Notes Problem Moderate recurrent major depression (07614940) Major depressive disorder, recurrent, moderate (F33.1) 11/06/19 24 Active confirmed Problem Screening for cardiovascular system disease (518803362) Encounter for screening for cardiovascular disorders (Z13.6) Active confirmed Problem Generalized anxiety disorder (32833857) SARA (generalized anxiety disorder) (F41.1) Active confirmed Problem Mild recurrent major depression (51436216) MDD (major depressive disorder), recurrent episode, mild (F33.0) Active confirmed Problem Attention deficit hyperactivity disorder (867215668) Attention deficit hyperactivity disorder (ADHD), predominantly hyperactive type (F90.1) Active confirmed Vital Signs Heart Rate 98 /min 02/03/2025 Respiratory Rate 20 /min 01/20/2025 Height-cm 160.02 cm 02/03/2025 Blood pressure diastolic 88 mm Hg 02/03/2025 Weight-kg 84.82 kg 02/03/2025 Height 63.00 in 02/03/2025 Blood pressure systolic 128 mm Hg 02/03/2025 Weight 187 lbs 02/03/2025 BMI 33.12 kg/m2 02/03/2025 Encounters Encounter Location Date Provider Diagnosis [place] [address] [address] 05/30/2024 Thena Rocio Major depressive disorder, recurrent, moderate F33.1 and Lack of concentration R41.840 [place] [address] [address] 06/20/2024 Reza Villarreal [place] [address] [address] 06/27/2024 Reza Villarreal Lack of concentratio n R41.840 [place] [address] [address] 07/31/2024 Thena Rocio [place] [address] [address] 08/01/2024 Thena Rocio Attention deficit hyperactivity disorder (ADHD), predominantly hyperactive type F90.1 and Major depressive disorder, recurrent, moderate F33.1 [place] [address] [address] 08/14/2024 Thena Rocio Major depressive disorder, recurrent, moderate F33.1 and Attention deficit hyperactivity disorder (ADHD), predominantly hyperactive type F90.[address] [address] 09/30/2024 Nette Tolliver Major depressive disorder, recurrent, moderate F33.1 ; Attention deficit hyperactivity disorder (ADHD), predominantly hyperactive type F90.1 ; Encounter for screening for cardiovascular disorders Z13.6 and SARA (generalized anxiety disorder) F41.1 [place] [address] [address] 10/28/2024 Nette Tolliver Encounter for screen ing for depression Z13.31 ; MDD (major depressive disorder), recurrent episode, mild F33.0 ; Encounter for screening for cardiovascular disorders Z13.6 ; Attention deficit hyperactivity disorder (ADHD), predominantly hyperactive type F90.1 and SARA (generalized anxiety disorder) F41.1 [facility], [facility] [address] [place] [address] 01/20/2025 Nette Tolliver Encounter for screen ing for depression Z13.31 ; Encounter for screening for cardiovascular disorders Z13.6 ; Attention deficit hyperactivity disorder (ADHD), predominantly hyperactive type F90.1 ; SARA (generalized anxiety disorder) F41.1 and Major depressive disorder, recurrent, moderate F33.1 [facility], [facility] [address] [place] [address] 02/03/2025 Nette Therfreeman Encounter for screen ing for depression Z13.31 ; MDD (major depressive disorder), recurrent episode, mild F33.0 ; Encounter for screening for cardiovascular disorders Z13.6 ; Attention deficit hyperactivity disorder (ADHD), predominantly hyperactive type F90.1 and SARA (generalized anxiety disorder) F41.1 [place] [address] [facility] [address] [place] [address] 08/05/2024 [facility] [address] [facility] [address] [place] [address] 01/22/2025 Nette Tolliver Major depressive disorder, recurrent, moderate F33.1 [place] [address] [facility] [address] [place] [address] 08/03/2024 Taya Chan [facility], [facility] [address] [facility] [address] [place] [address] 08/07/2024 [facility] [place], [facility] [address] [facility] [address] [place] [address] 12/24/2024 Nette Tolliver MDD (major depressiv e disorder), recurrent episode, mild F33.0 and Attention deficit hyperactivity disorder (ADHD), predominantly hyperactive type F90.1 [facility], [facility] [address] [place] [address] 12/24/2024 Nette Tolliver Attention deficit hyperactivity disorder (ADHD), predominantly hyperactive type F90.1 [facility], [place] [address] [facility] [address] [place] [address] 12/24/2024 Nette Tolliver [facility], [facility] [address] [place] [address] 01/27/2025 Nette Tolliver [facility] [employer], [facility] [address] [place] [address] 01/27/2025 Nette Tolliver [facility] [employer] [facility] [address] [place] [address] 03/14/2025 Nette Tolliver Assessments Encounter Date Diagnosis (ICD [...] abuse, and addiction before prescribing stimulant medicines. Shook [employer] patients not to share their prescribed stimulant [...] than warranted by the prescribed dosage. Random [facility] prescription reviewed local pharmacy in [facility], no early refills on control [...] abuse, and addiction before prescribing stimulant medicines. [employer] patients not to share their prescribed stimulant [...] by the prescribed dosage. Random [facility] [place], no [...] abuse, and addiction before prescribing stimulant medicines. [employer] patients not to share their prescribed stimulant [...] by the prescribed dosage. Random [facility] [place] prescription reviewed local pharmacy in [facility], no early refills on control [...] abuse, and addiction before prescribing stimulant medicines. [employer] patients not to share their prescribed stimulant [...] than warranted by the prescribed dosage. Random [facility] prescription reviewed local pharmacy in [facility], no early refills on control [...] abuse, and addiction before prescribing stimulant medicines. [employer] patients not to share their prescribed stimulant [...] by the prescribed dosage. Random [facility] [place], no [...] Anxiety Cymbalta 90 mg daily in am- [facility] pharmacy Vistaril 10 mg daily [...] abuse, and addiction before prescribing stimulant medicines. Sh[employer] patients not to share their prescribed stimulant [...] by the prescribed dosage. Random [facility] [place] prescription reviewed local pharmacy in [facility], no early refills on control [...] Anxiety Cymbalta 90 mg daily in am- [facility] pharmacy Vistaril 10 mg daily [...] abuse, and addiction before prescribing stimulant medicines. Sh[employer] patients not to share their prescribed stimulant [...] by the prescribed dosage. Random [facility] [place] prescription reviewed [place], no [...] abuse, and addiction before prescribing stimulant medicines. [employer] patients not to share their prescribed stimulant [...] by the prescribed dosage. Random [facility] [place] prescription reviewed local pharmacy in [facility], no early refills on control [...] abuse, and addiction before prescribing stimulant medicines. Sh[employer] patients not to share their prescribed stimulant [...] by the prescribed dosage. Random S [place] prescription reviewed local pharmacy in [facility], no early refills on control [...] abuse, and addiction before prescribing stimulant medicines. Sh[employer] patients not to share their prescribed stimulant [...] by the prescribed dosage. Random [facility] [place] prescription reviewed local pharmacy in [facility], no early refills on control [...] abuse, and addiction before prescribing stimulant medicines. Sh[employer] patients not to share their prescribed stimulant [...] by the prescribed dosage. Random [facility] [place] prescription [place], no [...] abuse, and addiction before prescribing stimulant medicines. Sh[employer] patients not to share their prescribed stimulant [...] by the prescribed dosage. Random S [place] prescription reviewed local pharmacy in [facility], no early refills on control [...] abuse, and addiction before prescribing stimulant medicines. Sh[employer] patients not to share their prescribed stimulant [...] by the prescribed dosage. Random [facility] [place] prescription reviewed [place], no [...] Anxiety Cymbalta 90 mg daily in am- [facility] pharmacy Vistaril 10 mg daily [...] abuse, and addiction before prescribing stimulant medicines. Sh[employer] patients not to share their prescribed stimulant [...] by the prescribed dosage. Random [facility] [place] prescription [place], no [...] abuse, and addiction before prescribing stimulant medicines. Sh[employer] patients not to share their prescribed stimulant [...] than warranted by the prescribed dosage. Random [facility] prescription reviewed local pharmacy in [facility], no early refills on control [...] Anxiety Cymbalta 90 mg daily in am- [facility] pharmacy Vistaril 10 mg daily [...] abuse, and addiction before prescribing stimulant medicines. Sh[employer] patients not to share their prescribed stimulant [...] by the prescribed dosage. Random [facility] [place] prescription [place], no [...] abuse, and addiction before prescribing stimulant medicines. Sh[employer] patients not to share their prescribed stimulant [...] by the prescribed dosage. Random [facility] [place] prescription reviewed local pharmacy in [facility], no early refills on control [...] abuse, and addiction before prescribing stimulant medicines. Sh[employer] patients not to share their prescribed stimulant [...] than warranted by the prescribed dosage. Random [facility] prescription reviewed local pharmacy in [facility], no early refills on control [...] abuse, and addiction before prescribing stimulant medicines. Sh[employer] patients not to share their prescribed stimulant [...] by the prescribed dosage. Random [facility] [place] [...] abuse, and addiction before prescribing stimulant medicines. Shook [employer] patients not to share their prescribed stimulant [...] by the prescribed dosage. Random [facility] [place] prescription reviewed local pharmacy in [facility], no early refills on control [...] Anxiety Cymbalta 90 mg daily in am- [facility] pharmacy Vistaril 10 mg daily [...] abuse, and addiction before prescribing stimulant medicines. Shook [employer]er patients not to share their prescribed stimulant [...] by the prescribed dosage. Random [facility] [place] prescription [place], no [...] Insured Coverage Start Date Coverage End Date [facility] [address] [place] [address] [id number] ANALY MURRAY Self - patient is the insured Medical (General) History Medical History History ICD Code Problems: Moderate recurrent major depre ssion , Surgical History Surgery Date(Month/Year) ACL replacement on right knee 06/18/1997 Appendectomy (74770) 06/18/2005 Cosmetic surgery 06/18/2007 ACL second knee replacement 06/18/2009 wisdom teeth 06/18/1994 ACL third knee replacement 06/18/2015 pins put in right thumb 06/18/1994 surgery on left wrist 06/18/2003 C- Section 2021
[2025-05-01 07:56] LABS: Anion Gap 7 mmol/L (4-12); Blood Urea Nitrogen 23 mg/dL (7-17); Calcium 8.9 mg/dL (8.4-10.2); Carbon Dioxide 26 mmol/L (22-30); Chloride 106 mmol/L (98-107); Estimated Glomerular Filt Rate 54; Glucose 99 mg/dL (65-110); Potassium 4.3 mmol/L (3.4-5.0); Sodium 139 mmol/L (137-145)
== END 2025-05-01 06:50 | disposition home or self-care (01) ==
LOC: ANHLAB 06:50
PROVIDERS: PCP Family Medicine; Visit Provider Nurse Anesthetist, Certified Registered
DX: Z01.818 Encounter for other preprocedural examination (principal)
CPT/HCPCS: 36415; 80048

== ENCOUNTER 2025-05-04 08:32 | Outpatient (CLI) | payer BC, SELFPAY ==
--- NOTE | 2025-05-04 | ECG_ITS ---
Test Date: 2025-05-04 09:06:11 Measurements Intervals [place] Rate: 71 P: 63 IN: 154 QRS: 10 QRSD: 84 T: 39 QT: 362 QTc: 394 Interpretive Statements SINUS RHYTHM LEFT ATRIAL ENLARGEMENT LOW QRS VOLTAGE IN PRECORDIAL LEADS Electronically Signed On 05-04-2025 11:24:46 [employer] by Chacho Olsen D.O
== END 2025-05-04 08:33 | disposition home or self-care (01) ==
LOC: ANHCARD 08:34
PROVIDERS: PCP Family Medicine; Visit Provider Nurse Anesthetist, Certified Registered
DX: Z01.818 Encounter for other preprocedural examination (principal)
CPT/HCPCS: 93005

== ENCOUNTER 2025-05-22 09:12 | Emergency (ER) | payer BC, SELFPAY ==
[2025-05-22 09:21] VITALS: BP 129/86; PULSE 80; RESP 16; TEMP 37.1; O2SAT 99
--- NOTE | 2025-05-22 09:58 | ED.NEUROSD ---
HPI - Neuro Symptoms/Deficit General Chief Complaint: Headache Stated Complaint: BRAIN ZAPS/TINGLING IN MOUTH & TONGUE Time Seen by Provider: 05/22/25 09:45 Source: patient and RN notes reviewed Mode of arrival: ambulatory Limitations: no limitations History of Present Illness HPI Narrative: 49 year old female presents to the [facility] complaining of brain zaps for 3 months. Patient says it has gotten a lot worse this week. Patient reports she feels a ?electrical shock? in her head followed by numbness and tingling to the roof of her mouth and tongue. Patient then will developed lightheadedness, palpitations, headaches, dizziness, palpitations, if feel flushed. Patient said the episodes may last few minutes to few days. Patient says a became more frequent over the last week. Patient says she has recently been tapered down from her steroids for history of rheumatoid arthritis. Patient also recently had left shoulder surgery 2 to 3 weeks ago. Patient denies any vision changes, slurred speech, facial droop, one-sided weakness, nausea, vomiting, chest pain, shortness of breath. Patient has a neurologist in the past for migraines but has never seen a them for the symptoms. Patient's primary care provider is aware of the patient's symptoms but has not ordered any further testing for it. Patient was told bear PCP to go to the ER or urgent care for symptoms are getting worse. Patient unable to see her PCP. Related Data Home Medications ?Medication ?Instructions ?Recorded ?Confirmed ?Last Taken ?Type calcium-magnesium 750 mg-465 mg 1 tablet PO DAILY 10/10/21 04/20/25 12/08/24 History tablet cholecalciferol (vitamin D3) 125 125 mcg PO DAILY 01/31/23 04/20/25 12/08/24 History mcg (5,000 unit) capsule mecobalamin (vitamin B12) 5,000 5,000 mcg PO DAILY 01/31/23 04/20/25 12/08/24 History mcg chewable tablet omega-3 fatty acids 1,000 mg 1,000 mg PO DAILY 01/31/23 04/20/25 12/08/24 History capsule ferrous sulfate 325 mg (65 mg 325 mg PO DAILY PRN Menstrual cycle 07/05/23 04/20/25 Unknown History iron) tablet (Feosol) Held on 10/21/24. Instructions: Patient Condition duloxetine 30 mg capsule,delayed 30 mg PO DAILY 09/25/24 04/20/25 12/09/24 History release (Cymbalta) duloxetine 60 mg capsule,delayed 60 mg PO .am 09/25/24 04/20/25 12/09/24 History release hydroxyzine HCl 10 mg tablet 10 mg PO QHS PRN insomnia 09/25/24 04/20/25 Unknown History tramadol 50 mg tablet 50 mg PO TID PRN pain 09/25/24 04/24/25 Unknown History celecoxib 200 mg capsule (Celebrex) 200 mg PO BID 10/21/24 04/20/25 12/09/24 History estradiol-dienogest 3 mg/2 mg-2 1 tablet PO DAILY 12/02/24 04/24/25 12/08/24 History mg/2 mg-3 mg/1 mg tablet (Natazia) dextromethorphan IR 45 1 tablet PO QAM 01/26/25 04/20/25 Unknown History mg-bupropion ER 105 mg biphasic tablet (Auvelity) sulfasalazine 500 mg 0.5 g PO BID 03/17/25 04/24/25 Unknown History tablet,delayed release abatacept (with maltose) 250 mg 250 ml IV MONTHLY 03/25/25 04/20/25 Unknown History intravenous solution (Orencia (with maltose)) valacyclovir 1 gram tablet 1,000 mg PO DAILY PRN 03/25/25 04/20/25 Unknown History hydrocodone 5 mg-acetaminophen 325 tablet 05/22/25 Unknown History mg tablet Allergies Allergy/AdvReac Type Severity Reaction Status Date / Time leflunomide Allergy Intermediate Migraine Verified 05/22/25 10:22 lamotrigine (From Lamictal) Allergy Swelling Verified 05/22/25 10:22 of Lip/Tongue/Throat methotrexate AdvReac Mild Blister Verified 05/22/25 10:22 Review of Systems Review of Systems: CONSTITUTIONAL: Denies fever, chills, or sweats. Positive for hot flashes. EYES: Denies visual changes, redness, or discharge. ENT: Denies rhinorrhea, congestion, sore throat, or otalgia. CARDIOVASCULAR: Denies chest pain, or edema. Positive for dizziness, palpitations, and lightheadedness. RESPIRATORY: Denies cough or dyspnea. GASTROINTESTINAL: Denies abdominal pain, nausea, vomiting, or diarrhea. GENITOURINARY: Denies dysuria or hematuria. SKIN: Denies rash or itching. MUSCULOSKELETAL: Denies back pain, joint pain, or myalgia. NEUROLOGIC: Positive for headaches, mitral shocks, numbness. Negative for loss of consciousness, seizures, focal weakness, slurred speech, confusion, or weakness. PSYCHIATRIC: Denies anxiety or depression. All other systems reviewed are negative, except as documented in HPI. [facility] Past Medical History Medical History Migraine PTSD (post-traumatic stress disorder) Depression Rheumatoid arthritis Essential (primary) hypertension delivery delivered Femur fracture, right ACL (anterior cruciate ligament) rupture Thumb fracture Left elbow pain Surgical History Surgical History History of appendectomy [place] teeth extracted Family History Family History Grandparent Heart disease Diabetes mellitus Cancer Gehrig disease Acute Crohn's disease Other Unknown family medical history Social History Social History Smoking status: Never smoker Alcohol intake: never Alcohol use details: occasionally Substance use: never Substance use type: does not use Lack of Transportation: No Lack of Food: Never True Current Housing: I Have Housing Concerned About Future Housing: No Difficulty Paying Gas/Electric Bills: No Difficulty Paying for Meds: No Currently Unemployed: No Living arrangements: with family Spiritual care concerns: No Comments At the time of my signature, I reviewed and agree with the nursing past medical, surgical, social, and family history. There is no relevant family history pertinent to the patient complaint. Exam Narrative: GENERAL: This is a well-nourished, well-developed adult, in no apparent distress. They are non ill-appearing, nontoxic appearing. Patient is in a sling to her left arm. HEAD: normocephalic, atraumatic. EYES: Sclera clear/white. Conjunctiva normal. Vision is grossly intact. Extraocular movements intact. Pupils PERRLA EARS: External ears normal, Hearing grossly intact. NOSE: External nose normal THROAT: Mucous membranes moist, NECK: Neck supple, CARDIOVASCULAR: Regular rate and rhythm RESPIRATORY: Respiratory rate normal, respiratory effort nonlabored, no respiratory distress GASTROINTESTINAL: Abdomen soft, non-tender, nondistended. Bowel sounds are active. No hepato-splenomegaly, or palpable masses. No guarding. SKIN: warm, Dry, intact with no suspicious lesions or rash, good texture and turgor. NEURO: awake, alert, and oriented to person, place and time. There were no obvious focal neurologic abnormalities. Cranial nerve 2-12 grossly intact. No facial droop. Speech is clear. EXTREMITIES: No joint tenderness, effusion, or edema noted. BACK: Nontender without deformity. Course Course Level of Care: Express Care Visit Vital Signs Vital signs: Vital Signs Temperature 98.8 F 05/22/25 09:21 Pulse Rate 80 05/22/25 09:21 Respiratory Rate 16 05/22/25 09:21 Blood Pressure 129/86 05/22/25 09:21 Pulse Oximetry 99 05/22/25 09:21 Temperature 98.8 F 05/22/25 09:21 Pulse Rate 80 05/22/25 09:21 Respiratory Rate 16 05/22/25 09:21 Blood Pressure 129/86 05/22/25 09:21 Pulse Oximetry 99 05/22/25 09:21 Transfer Transfered to: [place] Transportation: Other (Private vehicle) Transfer rationale: Patient requires higher level care, further evaluation management, neurological symptoms Accepting physician: Dr. Mendoza [facility] Narrative Medical decision making narrative: No focal neurological deficits, patient nontoxic appearing, no apparent distress. Given patient's symptoms, it is recommend the patient seek a higher level care and proceed immediately to the emergency department. Patient agreeable to go to [place] ER. Called over to [place] [facility] and spoke to Dr. Mendoza who is aware this patient accepted the patient for transfer. Advised patient remain NPO proceed immediately to the ER. Patient's mother will take her to the hospital via private vehicle. Differential Diagnosis Differential Diagnosis: Differential diagnostic considerations for neurologic symptoms include CVA, TIA, venous thromboembolism, SAH, seizure, multiple sclerosis, metabolic disturbances considered in this patient presenting with complex neurologic symptoms. Critical Care Time Critical Care Time Critical Care Time: No Discharge Plan Discharge Clinical Impression: Electrical shock sensation Patient Disposition: Acute Care Hospital Condition: Stable Patient Language: Slovenian Prescriptions: No Action hydrocodone-acetaminophen 5-325 mg tablet valacyclovir 1 gram tablet 1,000 mg PO DAILY PRN Rx Instructions: Take one tablet daily. If your symptoms do not improve, take a second dose. Do not take more than 2 tablets in 48 hours methocarbamol 750 mg tablet 750 mg PO Q6H Qty: 180 0RF metoprolol succinate 25 mg tablet extended release 24 hr 25 mg PO DAILY Qty: 90 0RF famotidine 40 mg tablet 40 mg PO QHS Qty: 90 3RF pantoprazole 40 mg tablet,delayed release (DR/EC) 40 mg PO QAM Qty: 90 3RF sulfasalazine 500 mg tablet,delayed release (DR/EC) 0.5 g PO BID Ajovy Autoinjector 225 mg/1.5 mL auto-injector 225 mg subcut MONTHLY Qty: 1.5 6RF Orencia (with maltose) 250 mg recon soln 250 ml IV MONTHLY cholecalciferol (vitamin D3) 125 mcg (5,000 unit) capsule 125 mcg PO DAILY mecobalamin (vitamin B12) 5,000 mcg tablet,chewable 5,000 mcg PO DAILY omega-3 fatty acids 1,000 mg capsule 1,000 mg PO DAILY ferrous sulfate [Feosol] 325 mg (65 mg iron) tablet 325 mg PO DAILY PRN (Reason: Menstrual cycle) diclofenac sodium [Voltaren Arthritis Pain] 1 % gel 4 g topical QID Qty: 100 2RF Rx Instructions: apply to single knee, ankle, foot; for foot includes sole/toes/top of foot duloxetine [Cymbalta] 30 mg capsule,delayed release(DR/EC) 30 mg PO DAILY Patient Comments: Total of 90mg duloxetine 60 mg capsule,delayed release(DR/EC) 60 mg PO .am tramadol 50 mg tablet 50 mg PO TID PRN (Reason: pain) hydroxyzine HCl 10 mg tablet 10 mg PO QHS PRN (Reason: insomnia) celecoxib [Celebrex] 200 mg capsule 200 mg PO BID cetirizine [Zyrtec] 10 mg tablet 10 mg PO DAILY Qty: 90 3RF Auvelity 45-105 mg tablet, IR and ER, biphasic 1 tablet PO QAM prednisone 1 mg tablet 1 mg PO DAILY Qty: 42 0RF Rx Instructions: 6,6,5,5,4,4,3,3,2,2,1,1 calcium-magnesium 750-465 mg Tablet 1 tablet PO DAILY Natazia 3 mg/2 mg-2 mg/ 2 mg-3 mg/1 mg tablet 1 tablet PO DAILY folic acid 1 mg tablet 1 mg PO DAILY Qty: 90 1RF lisinopril 5 mg tablet 5 mg PO DAILY Qty: 90 1RF metoclopramide HCl 5 mg tablet See Rx Instructions .ROUTE .COMPLEX Qty: 120 6RF Dose Instruction: Take 1 tablet by mouth every 6 hours as needed for gastroparesis. Rx Instructions: Take 1 tablet by mouth every 6 hours as needed for gastroparesis. rizatriptan 5 mg tablet See Rx Instructions PO .COMPLEX Qty: 14 0RF Rx Instructions: take 1 tablet at onset of headache; if no relief, may repeat 1 tablet after at least 2 hrs PO Follow-up/Referrals: Julianne De La Torre DO [Primary Care Provider, [facility]] Time of Disposition: 10:05
== END 2025-05-22 09:58 | disposition short-term general hospital (02) ==
PROVIDERS: PCP Family Medicine
DX: R29.818 Other symptoms and signs involving the nervous system (principal); I10 Essential (primary) hypertension; M06.9 Rheumatoid arthritis, unspecified; F32.A Depression, unspecified
CPT/HCPCS: 99213; G0463

== ENCOUNTER 2025-05-22 10:20 | Emergency (ER) | payer BC, SELFPAY ==
--- NOTE | ~2025-05-22 | CT_ITS ---
EXAMINATION: CT brain wo con COMPARISON: None HISTORY: electric zap sensations in head, migraines TECHNIQUE: Axial images were obtained through the brain without IV contrast. CT scan performed using dose optimization techniques including the following automated exposure control; adjustment of mA and/or kV; use of iterative reconstruction technique. Automatic exposure control was used to reduce radiation dose. Permanent radiation dose record is archived to PACS. FINDINGS: No acute infarct or parenchymal hemorrhage. No abnormal mass or mass effect. No midline shift. No extra-axial fluid collections. No hydrocephalus. . Mastoid air cells unremarkable. Sinuses and orbits unremarkable. No acute fracture. No significant facial or scalp soft tissue swelling evident. No radiopaque foreign body is seen. Impression: 1.No acute intracranial abnormality. Reviewed, dictated and finalized at location P. STRIAL CUSTODIAN Impression: 1.No acute intracranial abnormality.
--- NOTE | ~2025-05-22 | XR_ITS ---
Examination: XR chest 2V Clinical History: cp,sob Comparison: None Technique: PA and Lateral Findings: Cardiomediastinal silhouette normal size and configuration. Lungs clear. No acute bony abnormality. IMPRESSION: 1. No acute cardiopulmonary findings. Reviewed, dictated and finalized at location R. UM TECHNICIAN
[2025-05-22 10:27] VITALS: BP 142/90; PULSE 83; RESP 16; TEMP 37.1; O2SAT 100
--- NOTE | 2025-05-22 11:33 | ECG_ITS ---
Test Date: 2025-05-22 12:08:13 Measurements Intervals [place] Rate: 66 P: 56 NH: 142 QRS: 8 QRSD: 85 T: 41 QT: 390 QTc: 410 Interpretive Statements SINUS RHYTHM BASELINE ARTIFACT- I, II, III, AVR, AVL ,AVF, V1-V6 NORMAL ECG Compared to ECG 05/04/2025 09:06:11 Atrial abnormality no longer present Electronically Signed On 05-22-2025 12:40:28 DRAMA DIRECTOR by Bhupinder Alvarez D.O.
[2025-05-22 11:55] LABS: Hematocrit 40.6 % (37.0-47.0); Hemoglobin 13.4 g/dL (12.0-15.0); Immature Granulocyte Percent A 0.3 % (0-0.5); Lymphocytes Absolute Auto 1.89 K/mm3 (0.9-3.2); Mean Corpuscular HGB Conc 33.0 g/dl (32-36); Mean Corpuscular Hemoglobin 29.3 pg (26-34); Mean Corpuscular Volume 88.6 fl (80-100); Nucleated Red Blood Cells Absolute Auto 0.000 K/mm3 (0.0-0.012); Nucleated Red Blood Cells Perc 0.0 % (0.0-0.2); Platelet Count Result 302 k/mm3 (150-375); Red Blood Count 4.58 M/mm3 (4.2-5.4); White Blood Count 7.7 K/mm3 (4.5-10.0)
--- NOTE | 2025-05-22 11:59 | PC.NURSE ---
EKG not obtained at this time due to pt being in CT.
[2025-05-22] MEDS: SODIUM CHLORIDE 0.9% IV 1,000 ML 999 ML IV CONT (12:05)
[2025-05-22] MEDS: ACETAMINOPHEN 500 MG TABLET 1000 MG PO (12:06)
[2025-05-22] MEDS: METOCLOPRAMIDE HCL INJ 10 MG/2 ML VIAL IV PUSH (12:06)
[2025-05-22 12:07] LABS: INR 1.0; Prothrombin Time 12.9 Seconds (11.1-14.7)
[2025-05-22 12:08] LABS: Partial Thromboplastin Time 34.4 Seconds (22.3-36.8)
[2025-05-22 12:11] LABS: Alanine Aminotransferase 18 U/L (6-35); Albumin Level 4.4 g/dL (3.5-5.1); Alkaline Phosphatase 104 U/L (38-126); Anion Gap 3 mmol/L (4-12); Aspartate Amino Transferase 23 U/L (14-36); Bilirubin,Total 0.5 mg/dL (0.2-1.3); Blood Urea Nitrogen 21 mg/dL (7-17); Calcium 9.7 mg/dL (8.4-10.2); Carbon Dioxide 28 mmol/L (22-30); Chloride 105 mmol/L (98-107); Estimated CRCL calculation 69 ml/min; Estimated Glomerular Filt Rate > 60; Glucose 85 mg/dL (65-110); Potassium 4.0 mmol/L (3.4-5.0); Sodium 136 mmol/L (137-145); Total Protein 7.3 g/dL (6.3-8.2)
[2025-05-22 12:16] VITALS: BP 141/89; PULSE 79; RESP 15; O2SAT 100
[2025-05-22 12:18] LABS: NT Pro B Type Natriuretic Pept 71 pg/mL (19.9-100); Troponin I < 0.012 ng/mL (0.000-0.034)
--- NOTE | 2025-05-22 12:25 | ED.HA ---
HPI - Headache General Chief Complaint: Headache Stated Complaint: head pain Time Seen by Provider: 05/22/25 10:29 Source: patient Mode of arrival: ambulatory Limitations: no limitations History of Present Illness HPI Narrative: Patient is a 49-year-old female who presents the ED with multiple complaints. Patient reports over the past 3 months, she has been having intermittent electrical zap shock sensations in her head. States they initially had been occurring every few weeks, however she has had more persistent symptoms over the past 4 days. Reports history of migraines, is on Ajovy injections monthly, sees Dr. Gómez. States this feels different than her typical migraines. Has not contacted her neurologist about this. Reports when the zap sensation occurs, it initiates a cascade of symptoms including tingling of her tongue and mouth, dizziness, headache, palpitations, chest heaviness, shortness of breath. Was seen at urgent care this morning and sent here for further evaluation. Patient c/o headache currently. Has not taken anything for her headache today. Reports nausea, photophobia. Denies focal numbness or weakness, vision changes. Related Data Home Medications ?Medication ?Instructions ?Recorded ?Confirmed ?Last Taken ?Type calcium-magnesium 750 mg-465 mg 1 tablet PO DAILY 10/10/21 04/20/25 12/08/24 History tablet cholecalciferol (vitamin D3) 125 125 mcg PO DAILY 01/31/23 04/20/25 12/08/24 History mcg (5,000 unit) capsule mecobalamin (vitamin B12) 5,000 5,000 mcg PO DAILY 01/31/23 04/20/25 12/08/24 History mcg chewable tablet omega-3 fatty acids 1,000 mg 1,000 mg PO DAILY 01/31/23 04/20/25 12/08/24 History capsule ferrous sulfate 325 mg (65 mg 325 mg PO DAILY PRN Menstrual cycle 07/05/23 04/20/25 Unknown History iron) tablet (Feosol) Held on 10/21/24. Instructions: Patient Condition duloxetine 30 mg capsule,delayed 30 mg PO DAILY 09/25/24 04/20/25 12/09/24 History release (Cymbalta) duloxetine 60 mg capsule,delayed 60 mg PO .am 09/25/24 04/20/25 12/09/24 History release hydroxyzine HCl 10 mg tablet 10 mg PO QHS PRN insomnia 09/25/24 04/20/25 Unknown History tramadol 50 mg tablet 50 mg PO TID PRN pain 09/25/24 04/24/25 Unknown History celecoxib 200 mg capsule (Celebrex) 200 mg PO BID 10/21/24 04/20/25 12/09/24 History estradiol-dienogest 3 mg/2 mg-2 1 tablet PO DAILY 12/02/24 04/24/25 12/08/24 History mg/2 mg-3 mg/1 mg tablet (Natazia) dextromethorphan IR 45 1 tablet PO QAM 01/26/25 04/20/25 Unknown History mg-bupropion ER 105 mg biphasic tablet (Auvelity) sulfasalazine 500 mg 0.5 g PO BID 03/17/25 04/24/25 Unknown History tablet,delayed release abatacept (with maltose) 250 mg 250 ml IV MONTHLY 03/25/25 04/20/25 Unknown History intravenous solution (Orencia (with maltose)) valacyclovir 1 gram tablet 1,000 mg PO DAILY PRN 03/25/25 04/20/25 Unknown History hydrocodone 5 mg-acetaminophen 325 tablet 05/22/25 Unknown History mg tablet Allergies Allergy/AdvReac Type Severity Reaction Status Date / Time leflunomide Allergy Intermediate Migraine Verified 05/22/25 10:22 lamotrigine (From Lamictal) Allergy Swelling Verified 05/22/25 10:22 of Lip/Tongue/Throat methotrexate AdvReac Mild Blister Verified 05/22/25 10:22 Review of Systems Review of Systems: All systems reviewed & are unremarkable except as noted in HPI. All systems reviewed & are unremarkable except as noted in HPI and below PMFSH Past Medical History Medical History Migraine PTSD (post-traumatic stress disorder) Depression Rheumatoid arthritis Essential (primary) hypertension delivery delivered Femur fracture, right ACL (anterior cruciate ligament) rupture Thumb fracture Left elbow pain Surgical History Surgical History History of appendectomy [place] teeth extracted Family History Family History Grandparent Heart disease Diabetes mellitus Cancer Gehrig disease Acute Crohn's disease Other Unknown family medical history Social History Social History Smoking status: Never smoker Alcohol intake: never Alcohol use details: occasionally Substance use: never Substance use type: does not use Lack of Transportation: No Lack of Food: Never True Current Housing: I Have Housing Concerned About Future Housing: No Difficulty Paying Gas/Electric Bills: No Difficulty Paying for Meds: No Currently Unemployed: No Living arrangements: with family Spiritual care concerns: No Exam Narrative: GENERAL: Well appearing, obese with BMI of 35.1, non-toxic, in no acute distress. HEAD: Normocephalic, atraumatic. EYES: PERRL/EOMI, conjunctiva clear. No nystagmus NECK: No meningeal signs RESPIRATORY: Airway patent, respirations nonlabored. Clear to auscultation bilaterally, no rales, rhonchi, wheezing. CARDIOVASCULAR: Regular rate and rhythm without murmurs, rubs, or gallops. MUSCULOSKELETAL: Moves all extremities. No gross deformities. SKIN: Warm, dry, normal color. NEURO: A&O X3. Speech clear. Cranial nerves II-XII grossly intact. Steady gait. No ataxic movements. No focal deficits. Equal commercial relief driver strength bilaterally PSYCHIATRIC: Appropriate mood and affect. Normal interaction. Course Vital Signs Vital signs: Vital Signs Temperature 98.7 F 05/22/25 10:27 Pulse Rate 83 05/22/25 10:27 Respiratory Rate 16 05/22/25 10:27 Blood Pressure 142/90 H 05/22/25 10:27 Pulse Oximetry 100 05/22/25 10:27 Temperature 98.7 F 05/22/25 10:27 Pulse Rate 79 05/22/25 12:16 Respiratory Rate 15 05/22/25 12:16 Blood Pressure 141/89 H 05/22/25 12:16 Pulse Oximetry 100 05/22/25 12:16 MDM MDM Narrative Medical decision making narrative: Patient reports 3 month history of intermittent headaches/zap sensations in head. reports additional cascade of symptoms when sensation occurs. Reports more persistent symptoms over the past 4 days. Vital signs are stable upon arrival. Patient is neurologically intact. Low suspicion for CVA/ TIA. CT brain was obtained and unremarkable. Migraine cocktail given. EKG without ischemic changes. Troponin undetectable. D-dimer within normal range. Chest x-ray is clear. Low suspicion for cardiac etiology. Remainder basic laboratory studies are otherwise unremarkable. patient feeling improved after migraine cocktail. Discussed overall reassuring workup. Safe for discharge home. Advised close follow-up with Neurology for further evaluation. Discussed further headache management at home. Given strict return precautions. She is in agreement with plan, feels comfortable going home. Discharged in stable condition. Differential Diagnosis Differential Diagnosis: migraine, cva/tia, demyelinating condition such as MS, acs, pe, palpitations, anxiety Medical Records I have reviewed the following patient records and this information was taken into consideration when formulating the assessment and plan.: previous labs, previous ER visits, previous hospitalizations and previous clinic visits Lab Data MDM Lab Attestation statement: I personally reviewed the patient's lab results. 05/22/25 11:50 05/22/25 11:50 Labs: Lab Results 05/22/25 Range/Units 11:50 WBC 7.7 (4.5-10.0) K/mm3 RBC 4.58 (4.2-5.4) M/mm3 Hgb 13.4 (12.0-15.0) g/dL Hct 40.6 (37.0-47.0) % MCV 88.6 (80-100) fl MCH 29.3 (26-34) pg MCHC 33.0 (32-36) g/dl RDW 12.6 (11.5-14.5) % Plt Count 302 (150-375) k/mm3 MPV 9.6 (7.4-10.4) fl Immature Gran % (Auto) 0.3 (0-0.5) % Neut % (Auto) 63.3 (45.5-73.1) % Lymph % (Auto) 24.5 (18.3-44.2) % [place] % (Auto) 9.1 H (2.6-8.5) % Eos % (Auto) 2.3 (0-4.4) % Baso % (Auto) 0.5 (0.2-1.2) % Lymph # (Auto) 1.89 (0.9-3.2) K/mm3 [place] # (Auto) 0.7 H (0.1-0.6) K/mm3 Eos # (Auto) 0.2 (0-0.3) K/mm3 Baso # (Auto) 0.0 (0.0-0.1) K/mm3 Abs Immat Gran (auto) 0.02 (0.00-0.031) K/mm3 Absolute Neuts (auto) 4.9 (1.3-6.7) K/mm3 Absolute Nucleated RBC 0.000 (0.0-0.012) K/mm3 Nucleated RBC % 0.0 (0.0-0.2) % PT 12.9 (11.1-14.7) Seconds INR 1.0 APTT 34.4 (22.3-36.8) Seconds D-Dimer 0.41 (<0.48) ug/mL Sodium 136 L (137-145) mmol/L Potassium 4.0 (3.4-5.0) mmol/L Chloride 105 (98-107) mmol/L Carbon Dioxide 28 (22-30) mmol/L Anion Gap 3 L (4-12) mmol/L BUN 21 H (7-17) mg/dL Creatinine 0.94 (0.7-1.0) mg/dL Estim Creat Clear Calc 69 ml/min Estimated GFR > 60 (59 - ) Glucose 85 (65-110) mg/dL Calcium 9.7 (8.4-10.2) mg/dL Total Bilirubin 0.5 (0.2-1.3) mg/dL AST 23 (14-36) U/L ALT 18 (6-35) U/L Alkaline Phosphatase 104 (38-126) U/L Troponin I < 0.012 (0.000-0.034) ng/mL NT-Pro-B Natriuret Pep 71 (19.9-100) pg/mL Total Protein 7.3 (6.3-8.2) g/dL Albumin 4.4 (3.5-5.1) g/dL Imaging Data Attestation: I personally reviewed and interpreted this imaging study as follows: Radiologist's impression: ITS Impressions Head CT 05/22/25 12:01 Impression: 1.No acute intracranial abnormality. Chest X-Ray 05/22/25 12:06 IMPRESSION: 1. No acute cardiopulmonary findings. ECG Data EKG #1: Attestation: I personally reviewed and interpreted this ECG as follows: ECG completion date: 05/22/25 ECG completion time: 12:08 normal rate (66), sinus rhythm and no ST changes Discharge Plan Discharge Clinical Impression: Electrical shock sensation Headache Qualifiers: Headache type: unspecified Headache chronicity pattern: episodic headache Intractability: not intractable Qualified Code(s): R51.9 - Headache, unspecified Patient Disposition: Home Condition: Stable Instructions: Antibiotic Form, Migraine Headache (ED), Acute Headache (ED) Additional Instructions: Follow-up with Neurology for further evaluation. Call office to make appointment. Your workup here was otherwise reassuring. Continue Tylenol and ibuprofen as needed for pain. Get plenty of rest. Stay well hydrated. Recommend low light/ low stimulus environment, limiting screen time. Follow-up with your primary care doctor for further evaluation if needed. Return to the ED if you experience worsening or severe pain, severe dizziness, vision changes, passing out, numbness or weakness or arm or leg, unable to keep down food or drink, or any other symptoms of concern. Patient Language: Mongolian Prescriptions: No Action hydrocodone-acetaminophen 5-325 mg tablet valacyclovir 1 gram tablet 1,000 mg PO DAILY PRN Rx Instructions: Take one tablet daily. If your symptoms do not improve, take a second dose. Do not take more than 2 tablets in 48 hours methocarbamol 750 mg tablet 750 mg PO Q6H Qty: 180 0RF metoprolol succinate 25 mg tablet extended release 24 hr 25 mg PO DAILY Qty: 90 0RF famotidine 40 mg tablet 40 mg PO QHS Qty: 90 3RF pantoprazole 40 mg tablet,delayed release (DR/EC) 40 mg PO QAM Qty: 90 3RF sulfasalazine 500 mg tablet,delayed release (DR/EC) 0.5 g PO BID Ajovy Autoinjector 225 mg/1.5 mL auto-injector 225 mg subcut MONTHLY Qty: 1.5 6RF Orencia (with maltose) 250 mg recon soln 250 ml IV MONTHLY cholecalciferol (vitamin D3) 125 mcg (5,000 unit) capsule 125 mcg PO DAILY mecobalamin (vitamin B12) 5,000 mcg tablet,chewable 5,000 mcg PO DAILY omega-3 fatty acids 1,000 mg capsule 1,000 mg PO DAILY ferrous sulfate [Feosol] 325 mg (65 mg iron) tablet 325 mg PO DAILY PRN (Reason: Menstrual cycle) diclofenac sodium [Voltaren Arthritis Pain] 1 % gel 4 g topical QID Qty: 100 2RF Rx Instructions: apply to single knee, ankle, foot; for foot includes sole/toes/top of foot duloxetine [Cymbalta] 30 mg capsule,delayed release(DR/EC) 30 mg PO DAILY Patient Comments: Total of 90mg duloxetine 60 mg capsule,delayed release(DR/EC) 60 mg PO .am tramadol 50 mg tablet 50 mg PO TID PRN (Reason: pain) hydroxyzine HCl 10 mg tablet 10 mg PO QHS PRN (Reason: insomnia) celecoxib [Celebrex] 200 mg capsule 200 mg PO BID cetirizine [Zyrtec] 10 mg tablet 10 mg PO DAILY Qty: 90 3RF Auvelity 45-105 mg tablet, IR and ER, biphasic 1 tablet PO QAM prednisone 1 mg tablet 1 mg PO DAILY Qty: 42 0RF Rx Instructions: 6,6,5,5,4,4,3,3,2,2,1,1 calcium-magnesium 750-465 mg Tablet 1 tablet PO DAILY Natazia 3 mg/2 mg-2 mg/ 2 mg-3 mg/1 mg tablet 1 tablet PO DAILY folic acid 1 mg tablet 1 mg PO DAILY Qty: 90 1RF lisinopril 5 mg tablet 5 mg PO DAILY Qty: 90 1RF metoclopramide HCl 5 mg tablet See Rx Instructions .ROUTE .COMPLEX Qty: 120 6RF Dose Instruction: Take 1 tablet by mouth every 6 hours as needed for gastroparesis. Rx Instructions: Take 1 tablet by mouth every 6 hours as needed for gastroparesis. rizatriptan 5 mg tablet See Rx Instructions PO .COMPLEX Qty: 14 0RF Rx Instructions: take 1 tablet at onset of headache; if no relief, may repeat 1 tablet after at least 2 hrs PO Follow-up/Referrals: Mireya Gómez MD [Physician, Neurology] Julianne De La Torre DO [Primary Care Provider, Family Practice] Time of Disposition: 14:19
[2025-05-22] MEDS: KETOROLAC 30 MG/ML VIAL (*BKC) IV PUSH (12:53)
== END 2025-05-22 14:29 | disposition home or self-care (01) ==
PROVIDERS: Emergency Provider Physician Assistant; PCP Family Medicine
DX: R51.9 Headache, unspecified (principal); I10 Essential (primary) hypertension; M06.9 Rheumatoid arthritis, unspecified; F43.10 Post-traumatic stress disorder, unspecified; F32.A Depression, unspecified; Z79.899 Other long term (current) drug therapy
CPT/HCPCS: 36415; 70450; 71046; 80053; 83880; 84484; 85025; 85380; 85610; 85730; 93005; 96361; 96374; 96375; 99284; A9270; J1200; J1885; J2765; J7030